=== PATIENT | male | born 1935 | race Caucasian/White ===

== ENCOUNTER 2020-04-19 12:32 | Emergency (ER) | payer MEDICARE, BC ==
[2020-04-19 12:38] VITALS: TEMP 98.2
--- NOTE | 2020-04-19 13:05 | ED ---
General Adult HPI - General Chief complaint: Nausea/Vomiting/Diarrhea Stated complaint: Exposure to Covid Time Seen by Provider: 04/19/20 12:46 Source: patient, RN notes reviewed, old records reviewed Mode of arrival: ambulatory Limitations: no limitations - History of Present Illness Initial comments: 84-year-old male patient presents to chief complaint of request of the tests. Patient reports that he was at a restaurant about a week ago and then urine the paper that there were coronavirus exposures there. Patient reports that since and has been having some generalized myalgias, diarrhea. Denies any chest pain shortness of breath or any abdominal pain. Patient reports that his joints are achy and he is having some left shoulder aching right now. Denies anterior chest pain or any other complaints. Systemic: Pt denies fatigue, fever/chills, rash. Pt denies weakness, night sweats, weight loss. Neuro: Pt denies headache, visual disturbances, syncope or pre-syncope. HEENT: Pt denies ocular discharge or irritation, otalgia, rhinorrhea, pharyngitis or notable lymphadenopathy. Cardiopulmonary: Pt denies chest pain, SOB, heart palpitations, dyspnea on exertion. Abdominal/GI: Pt denies abdominal pain, vomiting. : Pt denies dysuria, burning w/ urination, frequency/urgency. Denies new onset urinary or bowel incontinence. MSK: Pt denies loss of strength or function in extremities. Neuro: Pt denies new onset weakness, paresthesias. - Related Data Home Medications Medication Instructions Recorded Confirmed Clarithromycin [Biaxin] 500 mg PO Q12HR 02/13/14 02/13/14 methylPREDNISolone Dose Pack 4 mg PO DIRECTED 02/13/14 02/13/14 [Medrol Dose Pack] Previous Rx's Medication Instructions Recorded Famotidine [Pepcid] 20 mg PO BID #20 tablet 02/13/14 Levofloxacin [Levaquin] 500 mg PO DAILY 10 Days tab 02/13/14 Loratadine [Claritin] 10 mg PO DAILY 20 Days tab 02/13/14 Allergies Allergy/AdvReac Type Severity Reaction Status Date / Time No Known Allergies Allergy Verified 04/19/20 12:38 Review of Systems ROS Statement: Those systems with pertinent positive or pertinent negative responses have been documented in the HPI. ROS Other: All systems not noted in ROS Statement are negative. Past Medical History Past Medical History: No Reported History History of Any Multi-Drug Resistant Organisms: None Reported Additional Past Surgical History / Comment(s): eye surgery Past Psychological History: No Psychological Hx Reported Smoking Status: Never smoker Past Alcohol Use History: None Reported Past Drug Use History: None Reported General Exam - General Exam Comments Initial Comments: Constitutional: NAD, AOX3, Pt has pleasant affect. HEENT: NC/AT, trachea midline, neck supple, no lymphadenopathy. External ears appear normal, without discharge. Mucous membranes moist. Eyes PERRLA, EOM intact. There is no scleral icterus. No pallor noted. Cardiopulmonary: RRR, no murmurs, rubs or gallops, no JVD noted. Lungs CTAB in anterior and posterior garner. No peripheral edema. Abdominal exam: Abdomen soft and non-distended. Abdomen non-tender to palpation in all 4 quadrants. Bowel sounds active in LLQ. No hepatosplenomegaly. No ecchymosis Neuro: CN II-XII grossly intact. No nuchal rigidity. MSK: Full active ROM in upper and lower extremities, 5/5 stregnth. Limitations: no limitations Course Vital Signs 04/19/20 12:34 Temperature 98.2 F Pulse Rate 95 Respiratory 18 Rate Blood Pressure 186/95 O2 Sat by Pulse 99 Oximetry Medical Decision Making - Medical Decision Making 84-year-old male patient presented to ED for evaluation of possible cold exposure and symptoms. Patient vital signs display mild hypertension. Patient advised to have recheck by primary care provider. Physical exam did not display acute pathology. I did recommend that we do further workup more than just the Covid test which patient is declining. I recommended blood work and urine imaging which he declines. I also discussed that sometimes when someone has left shoulder pain we make sure there is no issues going on to the heart and recommended an EKG this he is also declining. He states he only wants the Covid test and then he wants to leave. Patient will be discharged to follow-up with his primary care provider and return here if any worsening symptoms. Case discussed with Dr. Calle. Disposition Clinical Impression: Myalgia, Diarrhea Narrative: Possible exposure to COVID-19 Disposition: HOME SELF-CARE Condition: Stable Instructions (If sedation given, give patient instructions): Musculoskeletal Pain (ED), Acute Diarrhea (ED) Additional Instructions: Have close outpatient follow-up with primary care provider tomorrow. Have blood pressure recheck by PCP. You will be contacted with the results and 1-3 days roughly. Self quarantine until results. Return to ER if any worsening symptoms. Is patient prescribed a controlled substance at d/c from ED?: No Referrals: None,Stated [Primary Care Provider] - 1-2 days Maulik Louis [STAFF PHYSICIAN] - 1-2 days
[2020-04-19 13:27] VITALS: BP 154/76; PULSE 69; RESP 16
== END 2020-04-19 13:20 | disposition home or self-care (01) ==
LOC: EC 12:32
DX: R19.7 Diarrhea, unspecified (principal); M79.10 Myalgia, unspecified site; I10 Essential (primary) hypertension; Z79.899 Other long term (current) drug therapy; Z20.828 Contact with and (suspected) exposure to other viral communicable diseases
CPT/HCPCS: 99284; U0003

== ENCOUNTER 2020-10-09 02:40 | Observation (INO) | payer MEDICARE, BC ==
[2020-10-09] MEDS ORDERED: SODIUM CHLORIDE 0.9% 1,000 ML IV STA (03:04)
--- NOTE | 2020-10-09 03:05 | ED ---
Abdominal Pain HPI - General Chief Complaint: Abdominal Pain Stated Complaint: Abd Pain Time Seen by Provider: 10/09/20 02:44 Source: patient, RN notes reviewed, old records reviewed Mode of arrival: ambulatory Limitations: no limitations - History of Present Illness Initial Comments: This is an 84-year-old male DF for evaluation. Patient is no surgical history and follow primary care doctor. Patient coming in for stomach pain epigastric pain with nausea. No vomiting no fevers. Again no history of abdominal surgery. Symptoms of been going on for about a day MD Complaint: abdominal pain -: hour(s) Location: epigastric Radiation: epigastric Migration to: epigastric Severity: moderate Severity scale (1-10): 7 Quality: stabbing, aching Consistency: constant Improves With: nothing Worsens With: nothing Associated Symptoms: denies other symptoms - Related Data Home Medications Medication Instructions Recorded Confirmed Clarithromycin [Biaxin] 500 mg PO Q12HR 02/13/14 02/13/14 methylPREDNISolone Dose Pack 4 mg PO DIRECTED 02/13/14 02/13/14 [Medrol Dose Pack] Previous Rx's Medication Instructions Recorded Famotidine [Pepcid] 20 mg PO BID #20 tablet 02/13/14 Levofloxacin [Levaquin] 500 mg PO DAILY 10 Days tab 02/13/14 Loratadine [Claritin] 10 mg PO DAILY 20 Days tab 02/13/14 Allergies Allergy/AdvReac Type Severity Reaction Status Date / Time No Known Allergies Allergy Verified 10/09/20 02:46 Review of Systems ROS Statement: Those systems with pertinent positive or pertinent negative responses have been documented in the HPI. ROS Other: All systems not noted in ROS Statement are negative. Past Medical History Past Medical History: No Reported History History of Any Multi-Drug Resistant Organisms: None Reported Additional Past Surgical History / Comment(s): eye surgery Past Psychological History: No Psychological Hx Reported Smoking Status: Never smoker Past Alcohol Use History: None Reported Past Drug Use History: None Reported General Exam Limitations: no limitations General appearance: alert, in no apparent distress, anxious Head exam: Present: atraumatic, normocephalic, normal inspection Eye exam: Present: normal appearance, PERRL, EOMI. Absent: scleral icterus, conjunctival injection, periorbital swelling ENT exam: Present: normal exam, mucous membranes moist Neck exam: Present: normal inspection. Absent: tenderness, meningismus, lymphadenopathy Respiratory exam: Present: normal lung sounds bilaterally. Absent: respiratory distress, wheezes, rales, rhonchi, stridor Cardiovascular Exam: Present: regular rate, normal rhythm, normal heart sounds. Absent: systolic murmur, diastolic murmur, rubs, gallop, clicks GI/Abdominal exam: Present: soft, normal bowel sounds. Absent: distended, tenderness, guarding, rebound, rigid Extremities exam: Present: normal inspection, full ROM, normal capillary refill. Absent: tenderness, pedal edema, joint swelling, calf tenderness Back exam: Present: normal inspection Neurological exam: Present: alert, oriented X3, CN II-XII intact Psychiatric exam: Present: normal affect, normal mood Skin exam: Present: warm, dry, intact, normal color. Absent: rash Course Vital Signs 10/09/20 10/09/20 10/09/20 02:43 05:00 06:00 Temperature 97.5 F L 97.6 F Pulse Rate 68 77 84 Respiratory 18 18 18 Rate Blood Pressure 221/81 167/87 154/84 O2 Sat by Pulse 100 97 97 Oximetry - Reevaluation(s) Reevaluation #1: 10/09/20 05:24 Medical record is reviewed Reevaluation #2: 10/09/20 06:38 Patient explained results here in the ER, need for ultrasound to rule out gallbladder disease. Patient at this time is unsure if he would like surgery Medical Decision Making - Lab Data Result diagrams: 10/09/20 03:16 10/09/20 03:16 Lab Results 10/09/20 10/09/20 10/09/20 Range/Units 03:16 03:16 03:16 WBC 11.0 H (3.8-10.6) k/uL RBC 4.93 (4.30-5.90) m/uL Hgb 13.5 (13.0-17.5) gm/dL Hct 40.9 (39.0-53.0) % MCV 83.0 (80.0-100.0) fL MCH 27.4 (25.0-35.0) pg MCHC 33.0 (31.0-37.0) g/dL RDW 14.3 (11.5-15.5) % Plt Count 287 (150-450) k/uL MPV 6.4 Neutrophils % 81 % Lymphocytes % 7 % Monocytes % 7 % Eosinophils % 4 % Basophils % 0 % Neutrophils # 8.8 H (1.3-7.7) k/uL Lymphocytes # 0.8 L (1.0-4.8) k/uL Monocytes # 0.7 (0-1.0) k/uL Eosinophils # 0.5 (0-0.7) k/uL Basophils # 0.0 (0-0.2) k/uL Sodium 137 (137-145) mmol/L Potassium 4.7 (3.5-5.1) mmol/L Chloride 103 (98-107) mmol/L Carbon Dioxide 25 (22-30) mmol/L Anion Gap 9 mmol/L BUN 28 H (9-20) mg/dL Creatinine 1.55 H (0.66-1.25) mg/dL Est GFR (CKD-EPI)AfAm 48 (>60 ml/min/1.73 sqM) Est GFR (CKD-EPI)NonAf 41 (>60 ml/min/1.73 sqM) Glucose 139 H (74-99) mg/dL Plasma Lactic Acid Daniel 1.3 (0.7-2.0) mmol/L Calcium 9.2 (8.4-10.2) mg/dL Total Bilirubin 0.5 (0.2-1.3) mg/dL AST 24 (17-59) U/L ALT 19 (4-49) U/L Alkaline Phosphatase 80 (38-126) U/L Troponin I (0.000-0.034) ng/mL Total Protein 7.6 (6.3-8.2) g/dL Albumin 4.2 (3.5-5.0) g/dL Amylase 93 (30-110) U/L Lipase 668 H (23-300) U/L Urine Color Urine Appearance (Clear) Urine pH (5.0-8.0) Ur Specific [place] (1.001-1.035) Urine Protein (Negative) Urine Glucose (UA) (Negative) Urine Ketones (Negative) Urine Blood (Negative) Urine Nitrite (Negative) Urine Bilirubin (Negative) Urine Urobilinogen (<2.0) mg/dL Ur Leukocyte Esterase (Negative) Urine RBC (0-5) /hpf Urine WBC (0-5) /hpf Urine Bacteria (None) /hpf Urine Mucus (None) /hpf 10/09/20 10/09/20 Range/Units 03:16 04:23 WBC (3.8-10.6) k/uL RBC (4.30-5.90) m/uL Hgb (13.0-17.5) gm/dL Hct (39.0-53.0) % MCV (80.0-100.0) fL MCH (25.0-35.0) pg MCHC (31.0-37.0) g/dL RDW (11.5-15.5) % Plt Count (150-450) k/uL MPV Neutrophils % % Lymphocytes % % Monocytes % % Eosinophils % % Basophils % % Neutrophils # (1.3-7.7) k/uL Lymphocytes # (1.0-4.8) k/uL Monocytes # (0-1.0) k/uL Eosinophils # (0-0.7) k/uL Basophils # (0-0.2) k/uL Sodium (137-145) mmol/L Potassium (3.5-5.1) mmol/L Chloride (98-107) mmol/L Carbon Dioxide (22-30) mmol/L Anion Gap mmol/L BUN (9-20) mg/dL Creatinine (0.66-1.25) mg/dL Est GFR (CKD-EPI)AfAm (>60 ml/min/1.73 sqM) Est GFR (CKD-EPI)NonAf (>60 ml/min/1.73 sqM) Glucose (74-99) mg/dL Plasma Lactic Acid Daniel (0.7-2.0) mmol/L Calcium (8.4-10.2) mg/dL Total Bilirubin (0.2-1.3) mg/dL AST (17-59) U/L ALT (4-49) U/L Alkaline Phosphatase (38-126) U/L Troponin I <0.012 (0.000-0.034) ng/mL Total Protein (6.3-8.2) g/dL Albumin (3.5-5.0) g/dL Amylase (30-110) U/L Lipase (23-300) U/L Urine Color Light Yellow Urine Appearance Clear (Clear) Urine pH 6.5 (5.0-8.0) Ur Specific [place] 1.014 (1.001-1.035) Urine Protein 1+ H (Negative) Urine Glucose (UA) Negative (Negative) Urine Ketones Negative (Negative) Urine Blood Small H (Negative) Urine Nitrite Negative (Negative) Urine Bilirubin Negative (Negative) Urine Urobilinogen <2.0 (<2.0) mg/dL Ur Leukocyte Esterase Moderate H (Negative) Urine RBC 5 (0-5) /hpf Urine WBC 30 H (0-5) /hpf Urine Bacteria Many H (None) /hpf Urine Mucus Rare H (None) /hpf - Radiology Data Radiology results: report reviewed (CT abdomen and pelvis positive for likely cholecystitis), image reviewed Disposition Clinical Impression: Abdominal pain, Pancreatitis, UTI (urinary tract infection) Condition: Good Is patient prescribed a controlled substance at d/c from ED?: No Referrals: None,Stated [Primary Care Provider] - 1-2 days
[2020-10-09 03:26] LABS: Basophils % (A) 0 %; Eosinophils # (A) 0.5 k/uL (0-0.7); Eosinophils % (A) 4 %; HCT 40.9 % (39.0-53.0); HGB 13.5 gm/dL (13.0-17.5); Lymphocytes # (A) 0.8 k/uL (1.0-4.8); Lymphocytes % (A) 7 %; MCH 27.4 pg (25.0-35.0); Mean Platelet Volume 6.4; Monocytes # (A) 0.7 k/uL (0-1.0); Monocytes % (A) 7 %; Neutrophils # (A) 8.8 k/uL (1.3-7.7); Neutrophils % (A) 81 %; Platelet Count 287 k/uL (150-450); RBC 4.93 m/uL (4.30-5.90); RDW 14.3 % (11.5-15.5)
[2020-10-09 03:36] LABS: Albumin 4.2 g/dL (3.5-5.0); Calcium 9.2 mg/dL (8.4-10.2); Potassium 4.7 mmol/L (3.5-5.1); Total Bilirubin 0.5 mg/dL (0.2-1.3); Total Protein 7.6 g/dL (6.3-8.2)
--- NOTE | 2020-10-09 04:33 | CT ---
EXAM: CT Abdomen and Pelvis Without Intravenous Contrast CLINICAL HISTORY: ITS.REASON CT Reason: abdominal pain TECHNIQUE: Axial computed tomography images of the abdomen and pelvis without intravenous contrast. CTDI is 12.67 mGy and DLP is 821.10 mGy-cm. This CT exam was performed using one or more of the following dose reduction techniques: automated exposure control, adjustment of the mA and/or kV according to patient size, and/or use of iterative reconstruction technique. COMPARISON: No relevant prior studies available. FINDINGS: Lung bases: No mass. No consolidation. ABDOMEN: Liver: Unremarkable. Gallbladder and bile ducts: Distended gallbladder with wall thickening and pericholecystic fluid. Gallbladder contained sludge. Pancreas: No ductal dilation. Spleen: Unremarkable. Adrenals: Unremarkable. Kidneys and ureters: No obstructing stones. No hydronephrosis. Stomach and bowel: No bowel obstruction. No bowel wall thickening. Colonic diverticulosis. PELVIS: Appendix: No evidence of appendicitis. Bladder: No stones. Severely thickened bladder wall. Reproductive: Severely enlarged prostate. ABDOMEN and PELVIS: Intraperitoneal space: Unremarkable. Bones/joints: No acute fractures. Soft tissues: Unremarkable. Vasculature: No abdominal aortic aneurysm. Lymph nodes: No enlarged lymph nodes. IMPRESSION: 1. Findings concerning for acute cholecystitis. Recommend right upper quadrant ultrasound. 2. Colonic diverticulosis. 3. Severely thickened bladder wall and severely enlarged prostate gland.
[2020-10-09] MEDS ORDERED: AMPICILLIN-SULBACTAM 3 GM in SODIUM CHLORIDE 0.9% 100 ML IVPB STA (04:39)
[2020-10-09 04:40] LABS: Appearance,Urine Clear (Clear); Bacteria,Urine Many /hpf; Bilirubin,Urine Negative (Negative); Blood,Urine Small (Negative); Color,Urine Light Yellow; Glucose,Urine (UA) Negative (Negative); Ketones,Urine Negative (Negative); Leukocyte Esterase,Urine Moderate (Negative); Mucus,Urine Rare /hpf; Nitrite,Urine Negative (Negative); PH, Urine 6.5 (5.0-8.0); Protein,Urine 1+ (Negative); RBC,Urine 5 /hpf (0-5); Specific Gravity,Urine 1.014 (1.001-1.035); Urobilinogen,Urine <2.0 mg/dL (<2.0); WBC,Urine 30 /hpf (0-5)
[2020-10-09] MEDS ORDERED: HYDROmorphone 1 MG/ML 1 ML SYRINGE IVP STA (05:23)
[2020-10-09] MEDS ORDERED: ONDANSETRON 4 MG/2 ML VIAL IVP STA (06:00)
[2020-10-09] MEDS ORDERED: ONDANSETRON 4 MG/2 ML VIAL IVP PRN (06:40)
[2020-10-09] MEDS ORDERED: HYDROmorphone 1 MG/ML 1 ML SYRINGE IVP PRN ×2 (06:40)
[2020-10-09] MEDS ORDERED: SODIUM CHLORIDE 0.9% 1,000 ML IV SCH (07:30)
--- NOTE | 2020-10-09 08:28 | US ---
EXAMINATION TYPE: US gallbladder DATE OF EXAM: 10/09/2020 COMPARISON: CT earlier today CLINICAL HISTORY: pain. epigastric pain EXAM MEASUREMENTS: Liver Length: 15.4 cm Gallbladder Wall: 0.7 cm CBD: 0.6 cm Right Kidney: 10.3 x 5.5 x 5.6 cm Pancreas: limited visualization due to midline bowel gas Liver: Increased attenuation Gallbladder: many shadowing stones, thickened wall, small amount of pericholecystic fluid. Evidence for sonographic Fowler's sign: patient denies any pain during exam. CBD: wnl Right Kidney: No hydronephrosis or masses seen Suboptimal evaluation of pancreas on the initial images, no acute findings noted on recent CT. Visual ized liver is heterogeneously hyperechoic consistent with mild diffuse fatty infiltration. Gallbladde r shows intraluminal mobile shadowing gallstones with distended margins correlating with CT. Gallblad ever wall shows mild to moderate wall thickening up to 7 mm on ultrasound more prominent than recent C T. No adjacent ascites. Sonographic Fowler's sign negative. Right kidney shows no hydronephrosis. IMPRESSION: Confirmation of multiple mobile small shadowing stones and gallbladder wall distention. M ild to moderate wall thickening on ultrasound noted. Findings increased suspicion for acute cholecyst itis though note is made of no surrounding fluid or fat stranding on ultrasound or CT and negative so nographic Fowler's sign.
[2020-10-09 08:29] VITALS: BP 164/67; RESP 18; TEMP 97.7
[2020-10-09] MEDS ORDERED: HEPARIN SODIUM,PORCINE 5,000 UNIT/ML 1 ML VIAL SQ SCH (09:00)
[2020-10-09] MEDS ORDERED: PANTOPRAZOLE 40 MG/10 ML VIAL IV SCH (09:00)
[2020-10-09 09:28] VITALS: PULSE 50
--- NOTE | 2020-10-09 09:36 | P.HPIM ---
History of Present Illness H&P Date: 10/09/20 Chief Complaint: Abdominal pain This is a 84-year-old male with no significant past medical history who presented to the emergency room with abdominal pain. Patient said that his pain started couple of days ago and is being getting worse. He describes his pain as dull and mostly in the center of his abdomen and epigastric area. He rated the pain as 9 out of 10 in severity at times. There is no exacerbating or alleviating factors. Pain is unrelated to food. There was no radiation. This was associated with some nausea but no vomiting. Patient reports having normal bowel movements otherwise. He denies any prior abdominal surgeries. No fevers or chills. Patient denies any past medical history. He does not take any prescription medications at home. He denies alcohol use. Review of Systems Review of system: 14 points review of systems were obtained and were negative except to what were mentioned in the HPI. Past Medical History Past Medical History: No Reported History History of Any Multi-Drug Resistant Organisms: None Reported Additional Past Surgical History / Comment(s): eye surgery Past Psychological History: No Psychological Hx Reported Smoking Status: Never smoker Past Alcohol Use History: None Reported Past Drug Use History: None Reported Medications and Allergies Home Medications Medication Instructions Recorded Confirmed Type Ascorbic Acid [Vitamin C] 500 mg PO DAILY 10/09/20 10/09/20 History Cholecalciferol [Vitamin D3 (25 25 mcg PO DAILY 10/09/20 10/09/20 History Mcg = 1000 Iu)] Allergies Allergy/AdvReac Type Severity Reaction Status Date / Time No Known Allergies Allergy Verified 10/09/20 07:14 Physical Exam Vitals: Vital Signs Temp Pulse Pulse Pulse Resp BP BP 10/09/20 08:28 97.7 F 53 L 18 164/67 10/09/20 07:01 97.5 F L 50 L 16 158/74 10/09/20 07:00 81 22 155/85 10/09/20 06:00 84 18 154/84 10/09/20 05:00 97.6 F 77 18 167/87 10/09/20 02:43 97.5 F L 68 18 221/81 Pulse Ox 10/09/20 08:28 97 10/09/20 07:01 97 10/09/20 07:00 97 10/09/20 06:00 97 10/09/20 05:00 97 10/09/20 02:43 100 Intake and Output 10/08/20 10/09/20 10/09/20 22:59 06:59 14:59 Other: Voiding Method Toilet Weight 97.522 kg 97.522 kg General: The patient is awake and alert, in no distress Eye: there is normal conjunctiva bilaterally. Neck: The neck is supple, there is no JVD. Cardiovascular: Normal S1-S2, no S3-S4, no murmurs. Respiratory: Lungs clear to auscultation bilaterally Gastrointestinal: Abdomen is soft, there is mild tenderness to palpation in the periumbilical area. Negative Fowler sign Musculoskeletal: There is no pedal edema. Neurological:. Speech is normal. Skin: Skin is warm and dry Results CBC & Chem 7: 10/09/20 03:16 10/09/20 03:16 Labs: Abnormal Lab Results - Last 24 Hours (Table) 10/09/20 10/09/20 10/09/20 Range/Units 03:16 03:16 04:23 WBC 11.0 H (3.8-10.6) k/uL Neutrophils # 8.8 H (1.3-7.7) k/uL Lymphocytes # 0.8 L (1.0-4.8) k/uL BUN 28 H (9-20) mg/dL Creatinine 1.55 H (0.66-1.25) mg/dL Glucose 139 H (74-99) mg/dL Lipase 668 H (23-300) U/L Urine Protein 1+ H (Negative) Urine Blood Small H (Negative) Ur Leukocyte Esterase Moderate H (Negative) Urine WBC 30 H (0-5) /hpf Urine Bacteria Many H (None) /hpf Urine Mucus Rare H (None) /hpf Microbiology - Last 24 Hours (Table) 10/09/20 04:23 Urine Culture - Preliminary Urine,Voided Thrombosis Risk Factor Assmnt - Choose All That Apply Any of the Below Risk Factors Present?: Yes Each Factor Represents 1 point: Obesity (BMI >25) Other Risk Factors: Yes Each Risk Factor Represents 3 Points: Age 75 years or older Other congenital or acquired thrombophilia - If yes, enter type in comment: No Thrombosis Risk Factor Assessment Total Risk Factor Score: 4 Thrombosis Risk Factor Assessment Level: Moderate Risk Assessment and Plan Assessment: This is a 84-year-old male with past medical history noted below who presented to the emergency room with worsening abdominal pain. Patient was evaluated in the ER and admitted to the hospital for further management of his medical problems noted below. 1. Suspected cholecystitis, computed tomography scan of the abdomen shows finding concerning for suspected acute cholecystitis. Ultrasound confirmed cholelithiasis with gallbladder wall distention and thickening. Gen. surgery consulted for further evaluation. Continue nothing by mouth for now. Antibiotic coverage with Unasyn. 2. Enlarged prostate, may represent BPH. I would clarify with patient any symptoms he has. Will need PSA as an outpatient 3. GI and DVT prophylaxis with IV Protonix and subcu heparin Today, I reviewed his medication list and lab work results. Continue current regimen. IV fluid hydration with normal saline at 75 mL per hour. Repeat lab work in the morning. Appreciate general surgery recommendations.
--- NOTE | 2020-10-09 12:10 | P.GSCN ---
History of Present Illness Consult date: 10/09/20 History of present illness: Patient presented with a one-day history of midepigastric abdominal pain. He stated this began out of the blue. He's never had pain like this before in the past. He denies any past surgical history. He denies any nausea vomiting denies any fevers or chills. He denies any change in his bowel movements. Past Medical History Past Medical History: No Reported History History of Any Multi-Drug Resistant Organisms: None Reported Additional Past Surgical History / Comment(s): eye surgery Past Psychological History: No Psychological Hx Reported Smoking Status: Never smoker Past Alcohol Use History: None Reported Past Drug Use History: None Reported Medications and Allergies Home Medications Medication Instructions Recorded Confirmed Type Ascorbic Acid [Vitamin C] 500 mg PO DAILY 10/09/20 10/09/20 History Cholecalciferol [Vitamin D3 (25 25 mcg PO DAILY 10/09/20 10/09/20 History Mcg = 1000 Iu)] Allergies Allergy/AdvReac Type Severity Reaction Status Date / Time No Known Allergies Allergy Verified 10/09/20 07:14 Surgical - Exam Osteopathic Statement: *. No significant issues noted on an osteopathic struc tural exam other than those noted in the History and Physical/Consult. Vital Signs Temp Pulse Resp BP Pulse Ox 97.5 F L 68 18 221/81 100 10/09/20 02:43 10/09/20 02:43 10/09/20 02:43 10/09/20 02:43 10/09/20 02:43 - Respiratory normal expansion, normal respiratory effort - Cardiovascular Rhythm: regular - Abdomen Abdomen: soft, non tender Results - Labs 10/09/20 03:16 10/09/20 03:16 Abnormal Lab Results - Last 24 Hours (Table) 10/09/20 10/09/20 10/09/20 Range/Units 03:16 03:16 04:23 WBC 11.0 H (3.8-10.6) k/uL Neutrophils # 8.8 H (1.3-7.7) k/uL Lymphocytes # 0.8 L (1.0-4.8) k/uL BUN 28 H (9-20) mg/dL Creatinine 1.55 H (0.66-1.25) mg/dL Glucose 139 H (74-99) mg/dL Lipase 668 H (23-300) U/L Urine Protein 1+ H (Negative) Urine Blood Small H (Negative) Ur Leukocyte Esterase Moderate H (Negative) Urine WBC 30 H (0-5) /hpf Urine Bacteria Many H (None) /hpf Urine Mucus Rare H (None) /hpf Microbiology - Last 24 Hours (Table) 10/09/20 04:23 Urine Culture - Preliminary Urine,Voided Diabetes panel 10/09/20 Range/Units 03:16 Sodium 137 (137-145) mmol/L Potassium 4.7 (3.5-5.1) mmol/L Chloride 103 (98-107) mmol/L Carbon Dioxide 25 (22-30) mmol/L BUN 28 H (9-20) mg/dL Creatinine 1.55 H (0.66-1.25) mg/dL Glucose 139 H (74-99) mg/dL Calcium 9.2 (8.4-10.2) mg/dL AST 24 (17-59) U/L ALT 19 (4-49) U/L Alkaline Phosphatase 80 (38-126) U/L Total Protein 7.6 (6.3-8.2) g/dL Albumin 4.2 (3.5-5.0) g/dL Calcium panel 10/09/20 Range/Units 03:16 Calcium 9.2 (8.4-10.2) mg/dL Albumin 4.2 (3.5-5.0) g/dL Pituitary panel 10/09/20 Range/Units 03:16 Sodium 137 (137-145) mmol/L Potassium 4.7 (3.5-5.1) mmol/L Chloride 103 (98-107) mmol/L Carbon Dioxide 25 (22-30) mmol/L BUN 28 H (9-20) mg/dL Creatinine 1.55 H (0.66-1.25) mg/dL Glucose 139 H (74-99) mg/dL Calcium 9.2 (8.4-10.2) mg/dL Adrenal panel 10/09/20 Range/Units 03:16 Sodium 137 (137-145) mmol/L Potassium 4.7 (3.5-5.1) mmol/L Chloride 103 (98-107) mmol/L Carbon Dioxide 25 (22-30) mmol/L BUN 28 H (9-20) mg/dL Creatinine 1.55 H (0.66-1.25) mg/dL Glucose 139 H (74-99) mg/dL Calcium 9.2 (8.4-10.2) mg/dL Total Bilirubin 0.5 (0.2-1.3) mg/dL AST 24 (17-59) U/L ALT 19 (4-49) U/L Alkaline Phosphatase 80 (38-126) U/L Total Protein 7.6 (6.3-8.2) g/dL Albumin 4.2 (3.5-5.0) g/dL Assessment and Plan Assessment: Mild pancreatitis versus symptomatically cholelithiasis. Plan: Patient's pain is completely resolved today. He states that he does not want surgery. I discussed with him that recurrent pancreatitis from gallstones can be more serious including risks of admission to ICU and even . he stated he understood this and stated he still did not want any surgery at this time. He can start a clear liquid diet from a surgical standpoint and follow-up as needed as an outpatient.
[2020-10-09] MEDS ORDERED: AMPICILLIN-SULBACTAM 3 GM in SODIUM CHLORIDE 0.9% 100 ML IVPB SCH (13:00)
--- NOTE | 2020-10-09 14:04 | P.DS ---
Providers Date of admission: 10/09/20 06:41 Expected date of discharge: 10/09/20 Attending physician: Dl Barbour MD Consults: 10/09/20 06:42 Consult Physician Routine Consulting Provider: Vikram Lee Consult Reason/Comments: blanca Do you want consulting provider notified?: Yes Primary care physician: Stated None Hospital Course: This is a 84-year-old male with past medical history noted below who presented to the emergency room with worsening abdominal pain. Patient was evaluated in the ER and admitted to the hospital for further management of his medical problems noted below. 1. Suspected cholecystitis, computed tomography scan of the abdomen shows finding concerning for suspected acute cholecystitis. Ultrasound confirmed cholelithiasis with gallbladder wall distention and thickening. Gen. surgery consulted for further evaluation. Patient was adamant about refusing any surgical intervention. He verbalizes understanding of the risks. He was cleared by general surgery to be discharged. He was pain-free throughout his hospital stay. He was able to tolerate regular diet with no difficulty. He will follow-up with general surgery in the office as directed. 2. Enlarged prostate, may represent BPH. Will need PSA as an outpatient Patient Condition at Discharge: Stable Plan - Discharge Summary Discharge Rx Participant: No New Discharge Prescriptions: Continue Cholecalciferol [Vitamin D3 (25 Mcg = 1000 Iu)] 25 mcg PO DAILY Ascorbic Acid [Vitamin C] 500 mg PO DAILY Discharge Medication List Ascorbic Acid [Vitamin C] 500 mg PO DAILY 10/09/20 [History] Cholecalciferol [Vitamin D3 (25 Mcg = 1000 Iu)] 25 mcg PO DAILY 10/09/20 [History] Follow up Appointment(s)/Referral(s): Vikram Lee, [Doctor of Osteopathic Medicine] - 1 Week None,Stated [Primary Care Provider] - 1-2 days (Please establish yourself with a pcp.) Patient Instructions/Handouts: Cholecystitis (ED), Pancreatitis (DC) Discharge Disposition: HOME SELF-CARE
== END 2020-10-09 14:48 | disposition home or self-care (01) ==
LOC: EC 02:40 → 6NMEDSUR 06:41
PROVIDERS: ADMIT Internal Medicine; ATTEND Internal Medicine
DX: R10.13 Epigastric pain (principal); K80.20 Calculus of gallbladder without cholecystitis without obstruction; N39.0 Urinary tract infection, site not specified; K57.30 Diverticulosis of large intestine without perforation or abscess without bleeding; N40.0 Benign prostatic hyperplasia without lower urinary tract symptoms; E66.9 Obesity, unspecified; Z68.27 Body mass index [BMI] 27.0-27.9, adult; Z20.828 Contact with and (suspected) exposure to other viral communicable diseases
CPT/HCPCS: 96372; 96375 ×2; 96361; 96365; 99285; 36415; 80053; 82150; 83605; 83690; 84484; 85025; 81001; 87086; 87077; 87186; 87635; 76705; 74176; G0378; J1644; J2405; J1170; J0295; C9113

== ENCOUNTER 2022-04-24 13:39 | Emergency (ER) | payer MEDICARE, BC ==
[2022-04-24 13:54] VITALS: TEMP 99.1
--- NOTE | 2022-04-24 14:15 | ED ---
General Adult HPI - General Chief complaint: Weakness Stated complaint: AFIB Time Seen by Provider: 04/24/22 13:50 Source: patient, EMS, RN notes reviewed, old records reviewed Mode of arrival: EMS Limitations: no limitations - History of Present Illness Initial comments: This is an 86-year-old male who presents emergency Department complaining that about an hour and a half prior to arrival he started feeling weak. Patient states she felt weak all over and at this point time he decided to call the paramedics. Patient denies any chest pain or palpitations. Patient denies any fever chills or cough recently. Patient denies any abdominal pain patient denies nausea vomiting diarrhea. Patient denies any headache patient denies numbness weakness. Patient's only complaint is overall he feels extremely weak. According to EMS they saw the heart rate as high as 130. They thought it might be atrial fibrillation patient has no history of such - Related Data Home Medications Medication Instructions Recorded Confirmed Ascorbic Acid [Vitamin C] 500 mg PO DAILY 10/09/20 10/09/20 Cholecalciferol [Vitamin D3 (25 25 mcg PO DAILY 10/09/20 10/09/20 Mcg = 1000 Iu)] Previous Rx's Medication Instructions Recorded Sulfamethox-Tmp 800-160Mg [Bactrim 1 each PO Q12HR #20 tab 04/24/22 DS 800-160 mg] Allergies Allergy/AdvReac Type Severity Reaction Status Date / Time No Known Allergies Allergy Verified 10/09/20 07:14 Review of Systems ROS Statement: Those systems with pertinent positive or pertinent negative responses have been documented in the HPI. ROS Other: All systems not noted in ROS Statement are negative. Past Medical History Past Medical History: No Reported History History of Any Multi-Drug Resistant Organisms: None Reported Additional Past Surgical History / Comment(s): eye surgery Past Psychological History: No Psychological Hx Reported Smoking Status: Never smoker Past Alcohol Use History: None Reported Past Drug Use History: None Reported General Exam - General Exam Comments Initial Comments: GENERAL: Patient is well-developed and well-nourished. Patient is nontoxic and well-hydrated and is in mild distress. ENT: Neck is soft and supple. No significant lymphadenopathy is noted. Oropharynx is clear. Moist mucous membranes. Neck has full range of motion without eliciting any pain. EYES: The sclera were anicteric and conjunctiva were pink and moist. Extraocular movements were intact and pupils were equal round and reactive to light. Eyelids were unremarkable. PULMONARY: Unlabored respirations. Good breath sounds bilaterally. No audible rales rhonchi or wheezing was noted. CARDIOVASCULAR: Patient is a regular rate and rhythm with occasional extrasystole ABDOMEN: Soft and nontender with normal bowel sounds. SKIN: Skin is clear with no lesions or rashes and otherwise unremarkable. NEUROLOGIC: Patient is alert and oriented x3. Cranial nerves II through XII are grossly intact. Motor and sensory are also intact. Normal speech, volume and content. Symmetrical smile. MUSCULOSKELETAL: Normal extremities with adequate strength and full range of motion. No lower extremity swelling or edema. No calf tenderness. LYMPHATICS: No significant lymphadenopathy is noted PSYCHIATRIC: Normal psychiatric evaluation. Limitations: no limitations Course Vital Signs 04/24/22 04/24/22 13:46 13:54 Temperature 99.1 F Pulse Rate 73 80 Respiratory 18 16 Rate Blood Pressure 158/73 O2 Sat by Pulse 98 95 Oximetry Medical Decision Making - Medical Decision Making EKG shows sinus rhythm with occasional PAC at 84 bpm NM interval 220 QRS is 119 QT interval 381 QTC is 423 per patient's EKG shows no ST segment elevation or depression. Patient received 2 g of Rocephin emergency department. I went back into the room I reevaluated the patient stated he felt back to his baseline and was comfortable going home on antibiotics. - Lab Data Result diagrams: 04/24/22 13:57 04/24/22 13:57 Lab Results 04/24/22 04/24/22 04/24/22 Range/Units 13:57 13:57 13:57 WBC 12.5 H (3.8-10.6) k/uL RBC 4.99 (4.30-5.90) m/uL Hgb 14.2 (13.0-17.5) gm/dL Hct 43.5 (39.0-53.0) % MCV 87.2 (80.0-100.0) fL MCH 28.6 (25.0-35.0) pg MCHC 32.7 (31.0-37.0) g/dL RDW 15.3 (11.5-15.5) % Plt Count 235 (150-450) k/uL MPV 6.9 Neutrophils % 90 % Lymphocytes % 2 % Monocytes % 6 % Eosinophils % 1 % Basophils % 0 % Neutrophils # 11.2 H (1.3-7.7) k/uL Lymphocytes # 0.3 L (1.0-4.8) k/uL Monocytes # 0.7 (0-1.0) k/uL Eosinophils # 0.1 (0-0.7) k/uL Basophils # 0.1 (0-0.2) k/uL PT 10.8 (9.0-12.0) sec INR 1.0 (<1.2) APTT 20.5 L (22.0-30.0) sec Sodium 138 (137-145) mmol/L Potassium 4.7 (3.5-5.1) mmol/L Chloride 106 (98-107) mmol/L Carbon Dioxide 21 L (22-30) mmol/L Anion Gap 11 mmol/L BUN 33 H (9-20) mg/dL Creatinine 1.63 H (0.66-1.25) mg/dL Est GFR (CKD-EPI)AfAm 44 (>60 ml/min/1.73 sqM) Est GFR (CKD-EPI)NonAf 38 (>60 ml/min/1.73 sqM) Glucose 150 H (74-99) mg/dL Plasma Lactic Acid Daniel (0.7-2.0) mmol/L Calcium 9.1 (8.4-10.2) mg/dL Magnesium 1.8 (1.6-2.3) mg/dL Total Bilirubin 0.6 (0.2-1.3) mg/dL AST 36 (17-59) U/L ALT 30 (4-49) U/L Alkaline Phosphatase 83 (38-126) U/L Troponin I (0.000-0.034) ng/mL Total Protein 6.7 (6.3-8.2) g/dL Albumin 4.0 (3.5-5.0) g/dL Urine Color Urine Appearance (Clear) Urine pH (5.0-8.0) Ur Specific [place] (1.001-1.035) Urine Protein (Negative) Urine Glucose (UA) (Negative) Urine Ketones (Negative) Urine Blood (Negative) Urine Nitrite (Negative) Urine Bilirubin (Negative) Urine Urobilinogen (<2.0) mg/dL Ur Leukocyte Esterase (Negative) Urine RBC (0-5) /hpf Urine WBC (0-5) /hpf Urine WBC Clumps (None) /hpf Urine Bacteria (None) /hpf Urine Mucus (None) /hpf Coronavirus (PCR) (Not Detectd) 04/24/22 04/24/22 04/24/22 Range/Units 13:57 13:57 14:36 WBC (3.8-10.6) k/uL RBC (4.30-5.90) m/uL Hgb (13.0-17.5) gm/dL Hct (39.0-53.0) % MCV (80.0-100.0) fL MCH (25.0-35.0) pg MCHC (31.0-37.0) g/dL RDW (11.5-15.5) % Plt Count (150-450) k/uL MPV Neutrophils % % Lymphocytes % % Monocytes % % Eosinophils % % Basophils % % Neutrophils # (1.3-7.7) k/uL Lymphocytes # (1.0-4.8) k/uL Monocytes # (0-1.0) k/uL Eosinophils # (0-0.7) k/uL Basophils # (0-0.2) k/uL PT (9.0-12.0) sec INR (<1.2) APTT (22.0-30.0) sec Sodium (137-145) mmol/L Potassium (3.5-5.1) mmol/L Chloride (98-107) mmol/L Carbon Dioxide (22-30) mmol/L Anion Gap mmol/L BUN (9-20) mg/dL Creatinine (0.66-1.25) mg/dL Est GFR (CKD-EPI)AfAm (>60 ml/min/1.73 sqM) Est GFR (CKD-EPI)NonAf (>60 ml/min/1.73 sqM) Glucose (74-99) mg/dL Plasma Lactic Acid Daniel 2.4 H* (0.7-2.0) mmol/L Calcium (8.4-10.2) mg/dL Magnesium (1.6-2.3) mg/dL Total Bilirubin (0.2-1.3) mg/dL AST (17-59) U/L ALT (4-49) U/L Alkaline Phosphatase (38-126) U/L Troponin I <0.012 (0.000-0.034) ng/mL Total Protein (6.3-8.2) g/dL Albumin (3.5-5.0) g/dL Urine Color Yellow Urine Appearance Cloudy (Clear) Urine pH 5.5 (5.0-8.0) Ur Specific [place] 1.014 (1.001-1.035) Urine Protein Trace H (Negative) Urine Glucose (UA) Negative (Negative) Urine Ketones Negative (Negative) Urine Blood Trace H (Negative) Urine Nitrite Positive (Negative) Urine Bilirubin Negative (Negative) Urine Urobilinogen <2.0 (<2.0) mg/dL Ur Leukocyte Esterase Large H (Negative) Urine RBC 10 H (0-5) /hpf Urine WBC >182 H (0-5) /hpf Urine WBC Clumps Moderate H (None) /hpf Urine Bacteria Occasional H (None) /hpf Urine Mucus Rare H (None) /hpf Coronavirus (PCR) (Not Detectd) 04/24/22 Range/Units 14:37 WBC (3.8-10.6) k/uL RBC (4.30-5.90) m/uL Hgb (13.0-17.5) gm/dL Hct (39.0-53.0) % MCV (80.0-100.0) fL MCH (25.0-35.0) pg MCHC (31.0-37.0) g/dL RDW (11.5-15.5) % Plt Count (150-450) k/uL MPV Neutrophils % % Lymphocytes % % Monocytes % % Eosinophils % % Basophils % % Neutrophils # (1.3-7.7) k/uL Lymphocytes # (1.0-4.8) k/uL Monocytes # (0-1.0) k/uL Eosinophils # (0-0.7) k/uL Basophils # (0-0.2) k/uL PT (9.0-12.0) sec INR (<1.2) APTT (22.0-30.0) sec Sodium (137-145) mmol/L Potassium (3.5-5.1) mmol/L Chloride (98-107) mmol/L Carbon Dioxide (22-30) mmol/L Anion Gap mmol/L BUN (9-20) mg/dL Creatinine (0.66-1.25) mg/dL Est GFR (CKD-EPI)AfAm (>60 ml/min/1.73 sqM) Est GFR (CKD-EPI)NonAf (>60 ml/min/1.73 sqM) Glucose (74-99) mg/dL Plasma Lactic Acid Daniel (0.7-2.0) mmol/L Calcium (8.4-10.2) mg/dL Magnesium (1.6-2.3) mg/dL Total Bilirubin (0.2-1.3) mg/dL AST (17-59) U/L ALT (4-49) U/L Alkaline Phosphatase (38-126) U/L Troponin I (0.000-0.034) ng/mL Total Protein (6.3-8.2) g/dL Albumin (3.5-5.0) g/dL Urine Color Urine Appearance (Clear) Urine pH (5.0-8.0) Ur Specific [place] (1.001-1.035) Urine Protein (Negative) Urine Glucose (UA) (Negative) Urine Ketones (Negative) Urine Blood (Negative) Urine Nitrite (Negative) Urine Bilirubin (Negative) Urine Urobilinogen (<2.0) mg/dL Ur Leukocyte Esterase (Negative) Urine RBC (0-5) /hpf Urine WBC (0-5) /hpf Urine WBC Clumps (None) /hpf Urine Bacteria (None) /hpf Urine Mucus (None) /hpf Coronavirus (PCR) Not Detected (Not Detectd) Disposition Clinical Impression: Urinary tract infection Disposition: HOME SELF-CARE Condition: Good Instructions (If sedation given, give patient instructions): Urinary Tract Infection in Men (ED) Prescriptions: Sulfamethox-Tmp 800-160Mg [Bactrim DS 800-160 mg] 1 each PO Q12HR #20 tab Is patient prescribed a controlled substance at d/c from ED?: No Referrals: None,Stated [Primary Care Provider] - 1-2 days Time of Disposition: 15:36
[2022-04-24 14:21] LABS: Basophils # (A) 0.1 k/uL (0-0.2); Basophils % (A) 0 %; Eosinophils # (A) 0.1 k/uL (0-0.7); Eosinophils % (A) 1 %; HCT 43.5 % (39.0-53.0); HGB 14.2 gm/dL (13.0-17.5); Lymphocytes # (A) 0.3 k/uL (1.0-4.8); Lymphocytes % (A) 2 %; MCH 28.6 pg (25.0-35.0); MCHC 32.7 g/dL (31.0-37.0); MCV 87.2 fL (80.0-100.0); Mean Platelet Volume 6.9; Monocytes # (A) 0.7 k/uL (0-1.0); Monocytes % (A) 6 %; Neutrophils # (A) 11.2 k/uL (1.3-7.7); Neutrophils % (A) 90 %; Platelet Count 235 k/uL (150-450); RBC 4.99 m/uL (4.30-5.90); RDW 15.3 % (11.5-15.5); WBC 12.5 k/uL (3.8-10.6)
--- NOTE | 2022-04-24 14:28 | XR ---
EXAMINATION TYPE: XR chest 2V DATE OF EXAM: 04/24/2022 2:18 PM COMPARISON: None TECHNIQUE: XR chest 2V Frontal and lateral views of the chest. CLINICAL INDICATION:Male, 86 years old with history of Weakness; FINDINGS: Lungs/Pleura: Low lung volumes are present. There is no evidence of pleural effusion, focal consolida tion, or pneumothorax. Pulmonary vascularity: Unremarkable. Heart/mediastinum: Cardiomediastinal silhouette is unremarkable. 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 IMPRESSION: Low lung volumes without evidence of acute cardiopulmonary process.
[2022-04-24 14:36] LABS: Calcium 9.1 mg/dL (8.4-10.2); Magnesium 1.8 mg/dL (1.6-2.3); Potassium 4.7 mmol/L (3.5-5.1); Prothrombin Time 10.8 sec (9.0-12.0); Total Bilirubin 0.6 mg/dL (0.2-1.3); Total Protein 6.7 g/dL (6.3-8.2)
[2022-04-24 14:52] LABS: Partial Thromboplastin Time 20.5 sec (22.0-30.0)
[2022-04-24 15:08] LABS: Appearance,Urine Cloudy (Clear); Bacteria,Urine Occasional /hpf; Bilirubin,Urine Negative (Negative); Blood,Urine Trace (Negative); Color,Urine Yellow; Glucose,Urine (UA) Negative (Negative); Ketones,Urine Negative (Negative); Leukocyte Esterase,Urine Large (Negative); Mucus,Urine Rare /hpf; Nitrite,Urine Positive (Negative); PH, Urine 5.5 (5.0-8.0); Protein,Urine Trace (Negative); RBC,Urine 10 /hpf (0-5); Specific Gravity,Urine 1.014 (1.001-1.035); Urobilinogen,Urine <2.0 mg/dL (<2.0); WBC,Urine >182 /hpf (0-5)
[2022-04-24] MEDS ORDERED: cefTRIAXone IN SWFI 1,000 MG/10 ML SYRINGE IVP STA (15:22)
[2022-04-24 16:25] VITALS: BP 129/65; PULSE 74; RESP 18
== END 2022-04-24 16:56 | disposition home or self-care (01) ==
LOC: EC 13:39
DX: N39.0 Urinary tract infection, site not specified (principal); Z20.822 Contact with and (suspected) exposure to COVID-19
CPT/HCPCS: 99284 ×2; 96374 ×2; 36415; 93005; 80053; 83605; 83735; 84484; 85025; 85610; 85730; 81001; 87086; 87077; 87186; 87635; 71046; J0696; 99285

== ENCOUNTER 2023-03-13 00:38 | Inpatient (IN) | payer MEDICARE, BC ==
[2023-03-13 01:43] LABS: Basophils % (A) 0 %; Eosinophils # (A) 0.2 k/uL (0-0.7); Eosinophils % (A) 1 %; HCT 35.1 % (39.0-53.0); HGB 11.8 gm/dL (13.0-17.5); Lymphocytes # (A) 0.6 k/uL (1.0-4.8); Lymphocytes % (A) 4 %; MCH 29.3 pg (25.0-35.0); MCHC 33.6 g/dL (31.0-37.0); MCV 87.2 fL (80.0-100.0); Mean Platelet Volume 7.3; Monocytes # (A) 0.8 k/uL (0-1.0); Monocytes % (A) 6 %; Neutrophils # (A) 11.6 k/uL (1.3-7.7); Neutrophils % (A) 87 %; Platelet Count 243 k/uL (150-450); RBC 4.03 m/uL (4.30-5.90); WBC 13.4 k/uL (3.8-10.6)
[2023-03-13 02:00] LABS: ALT 186 U/L (4-49); AST 116 U/L (17-59); African American GFR (CKD) 43 (>60 ml/min/1.73 sqM); Albumin 3.3 g/dL (3.5-5.0); Alkaline Phosphatase 403 U/L (38-126); Amylase 202 U/L (30-110); Anion Gap 9 mmol/L; Blood Urea Nitrogen 31 mg/dL (9-20); Calcium 8.6 mg/dL (8.4-10.2); Carbon Dioxide 22 mmol/L (22-30); Chloride 105 mmol/L (98-107); Glucose 132 mg/dL (74-99); Non-African American GFR(CKD) 37 (>60 ml/min/1.73 sqM); Potassium 4.4 mmol/L (3.5-5.1); Sodium 136 mmol/L (137-145); Total Bilirubin 3.1 mg/dL (0.2-1.3); Total Protein 6.8 g/dL (6.3-8.2)
[2023-03-13 02:29] LABS: Lipase 2255 U/L (23-300)
--- NOTE | 2023-03-13 02:29 | XR ---
EXAM: XR Abdomen, 1 View CLINICAL HISTORY: ITS.REASON XR Reason: abdominal pain TECHNIQUE: Frontal supine view of the abdomen/pelvis. COMPARISON: No relevant prior studies available. FINDINGS: Gastrointestinal tract: Moderate stool burden consistent with constipation. No dilation. Bones/joints: No acute osseous abnormalities. IMPRESSION: Moderate stool burden consistent with constipation.
[2023-03-13] MEDS ORDERED: SODIUM CHLORIDE 0.9% 1,000 ML IV STA (03:23)
[2023-03-13] MEDS ORDERED: SODIUM CHLORIDE 0.9% 1,000 ML IV SCH ×2 (03:30→06:45)
[2023-03-13] MEDS ORDERED: MORPHINE SULFATE 4 MG/ML SYRINGE IVP STA (06:09)
[2023-03-13] MEDS ORDERED: MORPHINE SULFATE 4 MG/ML SYRINGE IVP PRN (06:09)
[2023-03-13] MEDS ORDERED: ONDANSETRON 4 MG/2 ML VIAL IVP STA (06:09)
[2023-03-13] MEDS ORDERED: ONDANSETRON 4 MG/2 ML VIAL IVP PRN (06:09)
[2023-03-13] MEDS ORDERED: PANTOPRAZOLE 40 MG/10 ML VIAL IVP STA (06:09)
--- NOTE | 2023-03-13 06:12 | ED ---
Abdominal Pain HPI - General Chief Complaint: Abdominal Pain Stated Complaint: Abdominal Pain, Constipation Time Seen by Provider: 03/13/23 03:23 Source: patient, RN notes reviewed, old records reviewed Mode of arrival: ambulatory Limitations: no limitations - History of Present Illness Initial Comments: This is an 87-year-old male to the ER today. This patient resents today for evaluation regards to, pain which is severe with recent diminished bowel activity bowel output bowel movements. Patient feels constipated. His abdominal pain is persistent but he himself is no medical history takes no medications no surgical history. Patient denies any fever. In pain is persistent here in the ER MD Complaint: abdominal pain -: days(s) Location: diffuse, epigastric Radiation: epigastric Severity: moderate Severity scale (1-10): 7 Quality: cramping, aching, fullness, dull Consistency: constant Improves With: nothing Worsens With: nothing Associated Symptoms: nausea, constipation Treatments Prior to Arrival: other (0) - Related Data Home Medications Medication Instructions Recorded Confirmed Ascorbic Acid [Vitamin C] 500 mg PO DAILY 10/09/20 03/19/23 Cholecalciferol [Vitamin D3 (25 25 mcg PO DAILY 10/09/20 03/19/23 Mcg = 1000 Iu)] Fluticasone Propionate 2 spray PO DAILY 03/13/23 03/19/23 allopurinoL 200 mg PO DAILY 03/13/23 03/19/23 Previous Rx's Medication Instructions Recorded Pantoprazole [Protonix] 40 mg PO DAILY 15 Days #15 tab 03/15/23 Allergies Allergy/AdvReac Type Severity Reaction Status Date / Time No Known Allergies Allergy Verified 03/19/23 16:08 Review of Systems ROS Statement: Those systems with pertinent positive or pertinent negative responses have been documented in the HPI. ROS Other: All systems not noted in ROS Statement are negative. Past Medical History Past Medical History: No Reported History History of Any Multi-Drug Resistant Organisms: None Reported Additional Past Surgical History / Comment(s): eye surgery Past Psychological History: No Psychological Hx Reported Smoking Status: Never smoker Past Alcohol Use History: None Reported Past Drug Use History: None Reported General Exam Limitations: no limitations General appearance: alert, in no apparent distress Head exam: Present: atraumatic, normocephalic, normal inspection Eye exam: Present: normal appearance, PERRL, EOMI. Absent: scleral icterus, conjunctival injection, periorbital swelling ENT exam: Present: normal exam, mucous membranes moist Neck exam: Present: normal inspection. Absent: tenderness, meningismus, lymphadenopathy Respiratory exam: Present: normal lung sounds bilaterally. Absent: respiratory distress, wheezes, rales, rhonchi, stridor Cardiovascular Exam: Present: regular rate, normal rhythm, normal heart sounds. Absent: systolic murmur, diastolic murmur, rubs, gallop, clicks GI/Abdominal exam: Present: soft, tenderness, guarding, rebound, normal bowel sounds. Absent: distended, rigid Extremities exam: Present: normal inspection, full ROM, normal capillary refill. Absent: tenderness, pedal edema, joint swelling, calf tenderness Back exam: Present: normal inspection Neurological exam: Present: alert, oriented X3, CN II-XII intact Psychiatric exam: Present: normal affect, normal mood Skin exam: Present: warm, dry, intact, normal color. Absent: rash Course Vital Signs 03/13/23 03/13/23 03/13/23 00:40 04:15 10:07 Temperature 98.2 F Pulse Rate 85 58 L 55 L Respiratory 16 18 16 Rate Blood Pressure 158/68 150/77 143/86 O2 Sat by Pulse 96 97 99 Oximetry 03/13/23 03/13/23 11:30 12:46 Temperature 98.1 F 98.0 F Pulse Rate 57 L 55 L Respiratory 17 17 Rate Blood Pressure 148/71 150/82 O2 Sat by Pulse 98 98 Oximetry - Reevaluation(s) Reevaluation #1: 03/13/23 06:10 Medical record is reviewed Reevaluation #2: 03/13/23 06:10 Patient symptoms are improved, no bowel movement Reevaluation #3: 03/13/23 06:10 Patient informed results and questions are answered Reevaluation #4: 03/13/23 06:10 Was pt. sent in by a medical professional or institution (, PA, POLE SANDER OPERATOR, urgent care, hospital, or penitentiary...) When possible be specific @ -no Did you speak to anyone other than the patient for history (EMS, parent, family, police, friend...)? What history was obtained from this source @ -no Did you review nursing and triage notes (agree or disagree)? Why? @ -agree Are old charts reviewed (outside hosp., previous admission, EMS record, old EKG, old radiological studies, urgent care reports/EKG's, penitentiary records)? Report findings @ -yes Differential Diagnosis (chest pain, altered mental status, abdominal pain women, abdominal pain men, vaginal bleeding, weakness, fever, dyspnea, syncope, headache, dizziness, GI bleed, back pain, seizure, CVA, palpatations, mental health, musculoskeletal)? @ -prior EKG interpreted by me (3pts min.). @ -no X-rays interpreted by me (1pt min.). @ -no CT interpreted by me (1pt min.). @ -yes U/S interpreted by me (1pt. min.). @ -yes What testing was considered but not performed or refused? (CT, X-rays, U/S, labs)? Why? @ -none What meds were considered but not given or refused? Why? @ -none Did you discuss the management of the patient with other professionals (professionals i.e. , PA, POLE SANDER OPERATOR, lab, RT, psych nurse, social worker masters, managing consultant clinical professor, teacher, stream control officer, behavioral health case manager)? Give summary @ -no Was smoking cessation discussed for >3mins.? @ -no Was critical care preformed (if so, how long)? @ -yes Were there social determinants of health that impacted care today? How? (Homelessness, low income, unemployed, alcoholism, drug addiction, transportation, low edu. Level, literacy, decrease access to med. care, care home, rehab)? @ -none Was there de-escalation of care discussed even if they declined (Discuss DNR or withdrawal of care, Hospice)? DNR status @ -no What co-morbidities impacted this encounter? (DM, HTN, Smoking, COPD, CAD, Cancer, CVA, ARF, Chemo, Hep., AIDS, mental health diagnosis, sleep apnea, morbid obesity)? @ -none Was patient admitted / discharged? Hospital course, mention meds given and route, prescriptions, significant lab abnormalities, going to OR and other pertinent info. @ - 87 male to the emergency department for abdominal pain with constipation complicated with pancreatitis. Patient is having significant bowel movements here in the ER. Patient will be admitted for GI, surgical consult and symptom control Admitted Undiagnosed new problem with uncertain prognosis? @ -no Drug Therapy requiring intensive monitoring for toxicity (Heparin, Nitro, Insulin, Cardizem)? @ -no Were any procedures done? @ -no Diagnosis/symptom? @ -Acute gallstone pancreatitis, pancreatitis abdominal pain constipation urinary tract infection Acute, or Chronic, or Acute on Chronic? @ -Acute Uncomplicated (without systemic symptoms) or Complicated (systemic symptoms)? @ -Complicated Side effects of treatment? @ -no Exacerbation, Progression, or Severe Exacerbation? @ -exacerbation Poses a threat to life or bodily function? How? (Chest pain, [place], [place], pneumonia, PE, COPD, DKA, ARF, appy, cholecystitis, CVA, Diverticulitis, Homicidal, Suicidal, threat to staff... and all critical care pts) @ -yes severe pancreatitis Reevaluation #5: 03/13/23 06:10 And abdominal pain been - Consultations Consultation #1: Spoke with EM were greater than admit this patient Medical Decision Making - Medical Decision Making 87 male to the emergency department for abdominal pain with constipation complicated with pancreatitis. Patient is having significant bowel movements here in the ER. Patient will be admitted for GI, surgical consult and symptom control - Lab Data Result diagrams: 03/14/23 06:37 03/15/23 06:06 Lab Results 03/13/23 03/13/23 Range/Units 01:22 01:22 WBC 13.4 H (3.8-10.6) k/uL RBC 4.03 L (4.30-5.90) m/uL Hgb 11.8 L (13.0-17.5) gm/dL Hct 35.1 L (39.0-53.0) % MCV 87.2 (80.0-100.0) fL MCH 29.3 (25.0-35.0) pg MCHC 33.6 (31.0-37.0) g/dL RDW 14.0 (11.5-15.5) % Plt Count 243 (150-450) k/uL MPV 7.3 Neutrophils % 87 % Lymphocytes % 4 % Monocytes % 6 % Eosinophils % 1 % Basophils % 0 % Neutrophils # 11.6 H (1.3-7.7) k/uL Lymphocytes # 0.6 L (1.0-4.8) k/uL Monocytes # 0.8 (0-1.0) k/uL Eosinophils # 0.2 (0-0.7) k/uL Basophils # 0.0 (0-0.2) k/uL Sodium 136 L (137-145) mmol/L Potassium 4.4 (3.5-5.1) mmol/L Chloride 105 (98-107) mmol/L Carbon Dioxide 22 (22-30) mmol/L Anion Gap 9 mmol/L BUN 31 H (9-20) mg/dL Creatinine 1.65 H (0.66-1.25) mg/dL Est GFR (CKD-EPI)AfAm 43 (>60 ml/min/1.73 sqM) Est GFR (CKD-EPI)NonAf 37 (>60 ml/min/1.73 sqM) Glucose 132 H (74-99) mg/dL Calcium 8.6 (8.4-10.2) mg/dL Total Bilirubin 3.1 H (0.2-1.3) mg/dL AST 116 H (17-59) U/L ALT 186 H (4-49) U/L Alkaline Phosphatase 403 H (38-126) U/L Total Protein 6.8 (6.3-8.2) g/dL Albumin 3.3 L (3.5-5.0) g/dL Amylase 202 H (30-110) U/L Lipase 2255 H (23-300) U/L - Radiology Data Radiology results: report reviewed (CT abdomen and pelvis positive for constipation mild pancreatitis with gallstone disease, ultrasound is positive for cholecystitis chronic), image reviewed Critical Care Time Critical Care Time: Yes Total Critical Care Time: 31 Disposition Clinical Impression: Abdominal pain, Pancreatitis, Constipation, Cholecystitis, UTI (urinary tract infection), Choledocholithiasis, Gallstone pancreatitis Disposition: ADMITTED IP TO THIS [facility] Condition: Fair Is patient prescribed a controlled substance at d/c from ED?: No Time of Disposition: 06:00
[2023-03-13] MEDS ORDERED: NALOXONE 0.4 MG/ML 1 ML VIAL IV PRN (06:32)
[2023-03-13] MEDS ORDERED: AMPICILLIN-SULBACTAM 3 GM in SODIUM CHLORIDE 0.9% 100 ML IVPB STA (06:33)
--- NOTE | 2023-03-13 06:49 | CT ---
EXAM: CT Abdomen and Pelvis Without Intravenous Contrast CLINICAL HISTORY: ITS.REASON CT Reason: pain TECHNIQUE: Axial computed tomography images of the abdomen and pelvis without intravenous contrast. CTDI is 10.7 mGy and DLP is 722.9 mGy-cm. This CT exam was performed using one or more of the following dose reduction techniques: automated exposure control, adjustment of the mA and/or kV according to patient size, and/or use of iterative reconstruction technique. COMPARISON: CT Abdomen Pelvis dated october 09 2020 FINDINGS: Limitations: Limited evaluation in the absence of contrast. Lung bases: Dependent airspace disease with dilated bronchi. Findings likely relate to sequelae of chronic infection/aspiration changes. ABDOMEN: Liver: Unremarkable. Gallbladder and bile ducts: Dilated gallbladder measuring 5.5 cm in diameter and 10.8 cm in length. Mild adjacent stranding noted. Findings are favored to relate to cholecystitis. Given findings within the pancreas, findings may be due to biliary obstruction. Consider MRCP. Pancreas: Diffuse peripancreatic stranding surrounding the atrophied pancreas with dependent fluid along the left anterior layer of the pararenal fascia. Findings are favored to relate to acute on chronic pancreatitis. Consider multiphasic imaging or MRI if there is further concern for complications. Pancreatic parenchyma calcifications which likely relate to chronic pancreatitis. No ductal dilation. Spleen: Unremarkable. No splenomegaly. Adrenals: Unremarkable. No mass. Kidneys and ureters: No evidence of radiopaque renal calculi or signs of collecting system dilatation. Simple bilateral renal cysts. No follow-up of these simple cysts is necessary. Stomach and bowel: No evidence of bowel obstruction. Advanced colonic diverticulosis. No evidence of diverticulitis. PELVIS: Appendix: Normal appendix. Bladder: Diffuse bladder wall thickening, out of proportion to degree of underdistention. Findings can be seen with cystitis. Consider correlation with laboratory values. Reproductive: Prostatomegaly with prominent indentation of the bladder upon the prostate. ABDOMEN and PELVIS: Intraperitoneal space: Unremarkable. No free air. No significant fluid collection. Bones/joints: Degenerative changes in the spine. No acute fracture. No dislocation. Soft tissues: Umbilical hernia containing fat. Bilateral inguinal hernia containing fat. Vasculature: Atherosclerotic disease. No abdominal aortic aneurysm. Lymph nodes: Unremarkable. No enlarged lymph nodes. IMPRESSION: 1. Limited evaluation in the absence of contrast. 2. No evidence of radiopaque renal calculi or signs of collecting system dilatation. 3. Diffuse peripancreatic stranding surrounding the atrophied pancreas with dependent fluid along the left anterior layer of the pararenal fascia. Findings are favored to relate to acute on chronic pancreatitis. Consider multiphasic imaging or MRI if there is further concern for complications. 4. Dilated gallbladder measuring 5.5 cm in diameter and 10.8 cm in length. Mild adjacent stranding noted. Findings are favored to relate to cholecystitis. Given findings within the pancreas, findings may be due to biliary obstruction. Consider MRCP. 5. Diffuse bladder wall thickening, out of proportion to degree of underdistention. Findings can be seen with cystitis. Consider correlation with laboratory values. 6. Dependent airspace disease with dilated bronchi. Findings likely relate to sequelae of chronic infection/aspiration changes. 7. Other incidental findings as described.
--- NOTE | 2023-03-13 08:57 | US ---
EXAMINATION TYPE: US gallbladder DATE OF EXAM: 03/13/2023 COMPARISON: NONE CLINICAL INDICATION: Male, 87 years old with history of blanca; abnormal CT. Pancreatitis TECHNIQUE: Multiple sonographic images of the right upper quadrant are obtained. FINDINGS: EXAM MEASUREMENTS: Liver Length: 16.4 cm Gallbladder Wall: 0.4 cm Right Kidney: 11.3 x 4.7 x 4.3 cm LOCAL DRIVER NOTES: Technical limitations due to large amount of overlying bowel content Pancreas: Limited assessment due to shadowing from bowel gas. Liver: limited evaluation, visualized portions appear wnl Gallbladder: Hydropic measuring 5.2 cm wide. Multiple stones, mildly thickened GB wall Evidence for sonographic Fowler's sign: no CBD: Obscured by overlying bowel gas Right Kidney: Midpole cortical cyst measuring 1.1cm. No hydronephrosis. IMPRESSION: 1. Gallbladder wall thickening, hydropic change, and multiple gallstones. Given the negative sonograp hic Fowler sign, consider chronic cholecystitis. If the patient received pain medication, acute blanca cystitis is also a consideration. 2. The bile duct is obscured by bowel gas shadowing and could not be assessed by ultrasound. 3. Limited assessment of the pancreas as well due to bowel gas shadowing.
[2023-03-13] MEDS: PANTOPRAZOLE 40 MG/10 ML VIAL IV SCH (10:10)
[2023-03-13 10:30] LABS: ALT 158 U/L (4-49); AST 86 U/L (17-59); African American GFR (CKD) 54 (>60 ml/min/1.73 sqM); Albumin/Globulin Ratio 0.9; Alkaline Phosphatase 366 U/L (38-126); Anion Gap 6 mmol/L; Blood Urea Nitrogen 27 mg/dL (9-20); Carbon Dioxide 23 mmol/L (22-30); Chloride 109 mmol/L (98-107); Globulin 3.4 g/dL; Glucose 103 mg/dL (74-99); Lipase 1413 U/L (23-300); Non-African American GFR(CKD) 47 (>60 ml/min/1.73 sqM); Potassium 4.4 mmol/L (3.5-5.1); Sodium 138 mmol/L (137-145); Total Protein 6.4 g/dL (6.3-8.2)
[2023-03-13 10:37] LABS: Prothrombin Time 10.9 sec (9.0-12.0)
[2023-03-13] MEDS: SODIUM CHLORIDE 0.9% 1,000 ML IV SCH ×2 (11:01→20:59)
--- NOTE | 2023-03-13 12:06 | P.HPIM ---
History of Present Illness 87-year-old pleasant male came in with complaints of nausea vomiting epigastric severe abdominal pain started about 3 days ago. Patient is found to have an keratitis with highly elevated lipase of 22,500 CT of the abdomen did show p ancreatitis acute on chronic. Patient does have gallstones which was at which was evident on ultrasound with the possibility of dilated bile ducts. Patient does have elevated AST and ALT with elevated bilirubin patient's serum creatinine is 1.37 this is close to his baseline. Patient pain improved at this time patient does have leukocytosis doesn't have any fever lipase is coming down. REVIEW OF SYSTEMS: CONSTITUTIONAL: No fever, no malaise, no fatigue. HEENT: No recent visual problems or hearing problems. Denied any sore throat. CARDIOVASCULAR: No chest pain, orthopnea, PND, no palpitations, no syncope. PULMONARY: No shortness of breath, no cough, no hemoptysis. GASTROINTESTINAL: As mentioned in HPI NEUROLOGICAL: No headaches, no weakness, no numbness. HEMATOLOGICAL: Denies any bleeding or petechiae. GENITOURINARY: Denies any burning micturition, frequency, or urgency. MUSCULOSKELETAL/RHEUMATOLOGICAL: Denies any joint pain, swelling, or any muscle pain. ENDOCRINE: Denies any polyuria or polydipsia. The rest of the 14-point review of systems is negative. PHYSICAL EXAMINATION: GENERAL: The patient is alert and oriented x3, not in any acute distress. Well developed, well nourished. HEENT: Pupils are round and equally reacting to light. EOMI. No scleral icterus. No conjunctival pallor. Normocephalic, atraumatic. No pharyngeal erythema. No thyromegaly. CARDIOVASCULAR: S1 and S2 present. No murmurs, rubs, or gallops. PULMONARY: Chest is clear to auscultation, no wheezing or crackles. ABDOMEN: Soft, mild epigastric and right upper quadrant tenderness, no ndistended, normoactive bowel sounds. No palpable organomegaly. MUSCULOSKELETAL: No joint swelling or deformity. EXTREMITIES: No cyanosis, clubbing, or pedal edema. NEUROLOGICAL: Gross neurological examination did not reveal any focal deficits. SKIN: No rashes. Assessment and plan 1 gallstone pancreatitis patient will remain nothing by mouth today possibly start him on clear liquid tomorrow. Patient does have gallstones because of which the gastric body was consulted MRI of the pancreas and liver were ordered to assess for any common bile duct stone. A repeat liver enzymes tomorrow. Seth bellamy will need cholecystectomy eventually once pancreatitis is better because original surgery was consulted. We will use IV Tylenol for pain -Chronic kidney disease stage III: Probably nephrosclerosis and age-related. -Leukocytosis secondary to pancreatitis -Transaminitis secondary to gallstones and probably, and there is a possibility of common bile duct stone DVT prophylaxis: Subcutaneous heparin Past Medical History Past Medical History: No Reported History History of Any Multi-Drug Resistant Organisms: None Reported Additional Past Surgical History / Comment(s): eye surgery Past Psychological History: No Psychological Hx Reported Smoking Status: Never smoker Past Alcohol Use History: None Reported Past Drug Use History: None Reported Medications and Allergies Home Medications Medication Instructions Recorded Confirmed Type Ascorbic Acid [Vitamin C] 500 mg PO DAILY 10/09/20 03/13/23 History Cholecalciferol [Vitamin D3 (25 25 mcg PO DAILY 10/09/20 03/13/23 History Mcg = 1000 Iu)] Fluticasone Propionate 2 spray PO DAILY 03/13/23 03/13/23 History allopurinoL 200 mg PO DAILY 03/13/23 03/13/23 History Allergies Allergy/AdvReac Type Severity Reaction Status Date / Time No Known Allergies Allergy Verified 03/13/23 07:58 Physical Exam Vitals: Vital Signs Temp Pulse Resp BP Pulse Ox 03/13/23 11:30 98.1 F 57 L 17 148/71 98 03/13/23 10:07 55 L 16 143/86 99 03/13/23 04:15 58 L 18 150/77 97 03/13/23 00:40 98.2 F 85 16 158/68 96 Intake and Output 03/12/23 03/13/23 03/13/23 22:59 06:59 14:59 Other: Weight 90.718 kg Results CBC & Chem 7: 03/13/23 01:22 03/13/23 10:01 Labs: Abnormal Lab Results - Last 24 Hours (Table) 03/13/23 03/13/23 03/13/23 Range/Units : 01:22 10:01 WBC 13.4 H (3.8-10.6) k/uL RBC 4.03 L (4.30-5.90) m/uL Hgb 11.8 L (13.0-17.5) gm/dL Hct 35.1 L (39.0-53.0) % Neutrophils # 11.6 H (1.3-7.7) k/uL Lymphocytes # 0.6 L (1.0-4.8) k/uL Sodium 136 L (137-145) mmol/L Chloride 109 H (98-107) mmol/L BUN 31 H 27 H (9-20) mg/dL Creatinine 1.65 H 1.37 H (0.66-1.25) mg/dL Glucose 132 H 103 H (74-99) mg/dL Calcium 8.0 L (8.4-10.2) mg/dL Total Bilirubin 3.1 H 3.0 H (0.2-1.3) mg/dL AST 116 H 86 H (17-59) U/L ALT 186 H 158 H (4-49) U/L Alkaline Phosphatase 403 H 366 H (38-126) U/L Albumin 3.3 L 3.0 L (3.5-5.0) g/dL Amylase 202 H (30-110) U/L Lipase 2255 H 1413 H (23-300) U/L
--- NOTE | 2023-03-13 12:55 | P.GSCN ---
History of Present Illness Consult date: 03/13/23 History of present illness: CHIEF COMPLAINT: Abdominal pain HISTORY OF PRESENT ILLNESS: This is a 87-year-old male with history of gallstones. Patient presents to the hospital complaints of mid abdominal pain 4 days. He did have an episode of vomiting on Sunday. Patient reports that the pain was in the mid abdomen and radiated around to lower abdomen. Patient reports that he felt constipated. He did have a large bowel movement in the ER and since then abdominal pain has improved. He denies any abdominal pain at this time. Denies any pain after eating. Denies any fever chills or sweats. She denies any prior alcohol use. Patient denies any prior history of pancreatitis. Patient had a computed tomography scan of the abdomen and pelvis had tremors acute on chronic pancreatitis and a dilated gallbladder. Patient's liver enzymes are elevated total bili elevated at 3.1 and lipase also elevated. Patient diagnosed with possible gallstone pancreatitis. Patient also being followed by GI service. Patient denies any abdominal surgical history. Denies any cardiac history. PAST MEDICAL HISTORY: See below PAST SURGICAL HISTORY: See below MEDICATIONS: See below ALLERGIES: See below SOCIAL HISTORY: No illicit drug use. REVIEW OF SYSTEMS: CONSTITUTIONAL: Denies fever or chills. HEENT: Denies blurred vision, vision changes, or eye pain. Denies hemoptysis CARDIOVASCULAR: Denies chest pain or pressure. RESPIRATORY: No shortness of breath. GASTROINTESTINAL: See HPI for pertinent findings HEMATOLOGIC: Denies bleeding disorders. GENITOURINARY: Denies any blood in urine or increased urinary frequency. SKIN: Denies pruitis. Denies rash. PHYSICAL EXAM: VITAL SIGNS: Reviewed GENERAL: Well-developed in no acute distress. ABDOMEN: Soft. Nondistended. Nontender NEUROLOGIC: Alert and oriented. Cranial nerves II through XII grossly intact. LABORATORY DATA: WBC 13.4 Hgb 11.8 platelets 243 Sodium is 138 potassium 4.4 creatinine 1.37 Total bilirubin 3.1-3.0 AST 0.16 down to 86 ALT 186-158 alk phos 403 down to 366 Lipase 2255 down to 1413 IMAGING: Computed tomography scan abdomen and pelvis no evidence of radiopaque renal calculi. Diffuse peripancreatic stranding surrounding the atrophied pancreas with dependent fluid along the left anterior layer of the pararenal shop. Findings are favored to relate to acute on chronic pancreatitis. Dilated gallbladder. Mild adjacent stranding noted. Findings are favored to relate cholecystitis. Given findings with pancreas, findings may be due to biliary obstruction. Consider MRCP. Diffuse bladder wall thickening out of portion to degree of bladder distention. Findings can be seen with cystitis. Abdominal ultrasound gallbladder wall thickening, hydropic change and multiple gallstones. Bile duct is obscured by bowel gas shadowing ASSESSMENT: 1. Gallstone pancreatitis 2. Acute cholecystitis 3. Constipation PLAN: -MRCP has been ordered by GI service -Keep patient nothing by mouth -Repeat labs in a.m. -Continue antibiotics -Continue supportive care -Further recommendations forthcoming per surgeon Physician Dental Scheduling Coordinator note has been reviewed by physician. Signing provider agrees with the documented findings, assessment, and plan of care. I have personally seen and examined the patient, reviewed the CONSTRUCTION CODE ADMINISTRATOR /PAs history, exam and MDM and agree with the assessment and plan as written. Based on total visit time, I have performed more than 50% of the visit. As above: Patient with upper abdominal pain and workup consistent with gallstone pancreatitis. Doing well currently. Labs improving. MRCP results noted. Continue clear liquids. Will follow. Past Medical History Past Medical History: No Reported History History of Any Multi-Drug Resistant Organisms: None Reported Additional Past Surgical History / Comment(s): eye surgery Past Psychological History: No Psychological Hx Reported Smoking Status: Never smoker Past Alcohol Use History: None Reported Past Drug Use History: None Reported Medications and Allergies Home Medications Medication Instructions Recorded Confirmed Type Ascorbic Acid [Vitamin C] 500 mg PO DAILY 10/09/20 03/13/23 History Cholecalciferol [Vitamin D3 (25 25 mcg PO DAILY 10/09/20 03/13/23 History Mcg = 1000 Iu)] Fluticasone Propionate 2 spray PO DAILY 03/13/23 03/13/23 History allopurinoL 200 mg PO DAILY 03/13/23 03/13/23 History Allergies Allergy/AdvReac Type Severity Reaction Status Date / Time No Known Allergies Allergy Verified 03/13/23 07:58 Surgical - Exam Vital Signs Temp Pulse Resp BP Pulse Ox 98.2 F 85 16 158/68 96 03/13/23 00:40 03/13/23 00:40 03/13/23 00:40 03/13/23 00:40 03/13/23 00:40 Results - Labs 03/13/23 01:22 08/01/23 10:01 Abnormal Lab Results - Last 24 Hours (Table) 03/13/23 03/13/23 03/13/23 Range/Units 01: 01: 10:01 WBC 13.4 H (3.8-10.6) k/uL RBC 4.03 L (4.30-5.90) m/uL Hgb 11.8 L (13.0-17.5) gm/dL Hct 35.1 L (39.0-53.0) % Neutrophils # 11.6 H (1.3-7.7) k/uL Lymphocytes # 0.6 L (1.0-4.8) k/uL Sodium 136 L (137-145) mmol/L Chloride 109 H (98-107) mmol/L BUN 31 H 27 H (9-20) mg/dL Creatinine 1.65 H 1.37 H (0.66-1.25) mg/dL Glucose 132 H 103 H (74-99) mg/dL Calcium 8.0 L (8.4-10.2) mg/dL Total Bilirubin 3.1 H 3.0 H (0.2-1.3) mg/dL AST 116 H 86 H (17-59) U/L ALT 186 H 158 H (4-49) U/L Alkaline Phosphatase 403 H 366 H (38-126) U/L Albumin 3.3 L 3.0 L (3.5-5.0) g/dL Amylase 202 H (30-110) U/L Lipase 2255 H 1413 H (23-300) U/L Diabetes panel 03/13/23 03/13/23 Range/Units 01:22 10:01 Sodium 136 L 138 (137-145) mmol/L Potassium 4.4 4.4 (3.5-5.1) mmol/L Chloride 105 109 H (98-107) mmol/L Carbon Dioxide 22 23 (22-30) mmol/L BUN 31 H 27 H (9-20) mg/dL Creatinine 1.65 H 1.37 H (0.66-1.25) mg/dL Glucose 132 H 103 H (74-99) mg/dL Calcium 8.6 8.0 L (8.4-10.2) mg/dL AST 116 H 86 H (17-59) U/L ALT 186 H 158 H (4-49) U/L Alkaline Phosphatase 403 H 366 H (38-126) U/L Total Protein 6.8 6.4 (6.3-8.2) g/dL Albumin 3.3 L 3.0 L (3.5-5.0) g/dL Calcium panel 03/13/23 03/13/23 Range/Units 01:22 10:01 Calcium 8.6 8.0 L (8.4-10.2) mg/dL Albumin 3.3 L 3.0 L (3.5-5.0) g/dL Pituitary panel 03/13/23 03/13/23 Range/Units 01:22 10:01 Sodium 136 L 138 (137-145) mmol/L Potassium 4.4 4.4 (3.5-5.1) mmol/L Chloride 105 109 H (98-107) mmol/L Carbon Dioxide 22 23 (22-30) mmol/L BUN 31 H 27 H (9-20) mg/dL Creatinine 1.65 H 1.37 H (0.66-1.25) mg/dL Glucose 132 H 103 H (74-99) mg/dL Calcium 8.6 8.0 L (8.4-10.2) mg/dL Adrenal panel 03/13/23 03/13/23 Range/Units 01:22 10:01 Sodium 136 L 138 (137-145) mmol/L Potassium 4.4 4.4 (3.5-5.1) mmol/L Chloride 105 109 H (98-107) mmol/L Carbon Dioxide 22 23 (22-30) mmol/L BUN 31 H 27 H (9-20) mg/dL Creatinine 1.65 H 1.37 H (0.66-1.25) mg/dL Glucose 132 H 103 H (74-99) mg/dL Calcium 8.6 8.0 L (8.4-10.2) mg/dL Total Bilirubin 3.1 H 3.0 H (0.2-1.3) mg/dL AST 116 H 86 H (17-59) U/L ALT 186 H 158 H (4-49) U/L Alkaline Phosphatase 403 H 366 H (38-126) U/L Total Protein 6.8 6.4 (6.3-8.2) g/dL Albumin 3.3 L 3.0 L (3.5-5.0) g/dL
--- NOTE | 2023-03-13 13:09 | P.CONS ---
History of Present Illness - Reason for Consult Consult date: 03/13/23 Pancreatitis Requesting physician: John Horne - Chief Complaint Abdominal pain, constipation - History of Present Illness This is a pleasant 87-year-old male with no past medical history reported. Who came into the emergency department with complaints of mid to lower abdominal pain with constipation for last 4 days duration. Patient states that he was recently on a family trip to [place] and he within the house and did not walk much, he states he did not eat his normal foods and he became constipated. He has since had 3 bowel movements since he came to the emergency department. He states he has no abdominal pain at this time. He denies any previous history of chronic constipation or significant abdominal pain. He had a CT of the abdomen and pelvis concerning for acute cholecystitis, acute pancreatitis and cystitis. He also had a ultrasound of the gallbladder showing concerns for gallbladder wall thickening as well as gallstones. Admitting labs WBC 13.4 hemoglobin 11.8 hematocrit 35 platelet count 243 sodium 136 potassium 4.4 BUN 31 creatinine 1.65 total bilirubin 3.1 AST 116 ALT 186 alkaline phosphatase 403 amylase 202 lipase 2255. Patient denies any previous history of gallbladder disease or pancreatitis. Denies any history of liver disease. Denies any dark urine, he states it looks like lemonade. Review of Systems REVIEW OF SYSTEMS: CARDIOPULMONARY: No chest pain or shortness of breath. Gastrointestinal: Mid to lower abdominal pain. Constipation. No nausea or vomiting. No hematemesis, coffee-ground emesis. GENITOURINARY: No dysuria or hematuria. MUSCULOSKELETAL: Reports normal range of motion. SKIN: No rashes. No jaundice. ENDOCRINE: No chills, fevers. No excessive weight gain or loss. No polydipsia or polyuria. PSYCHIATRIC: Unremarkable. NEUROLOGY: No change in mental status. Denies dizziness, headache. ENT: Vision unremarkable. CONSTITUTIONAL: No recent weight loss. No fever, chills, night sweats. Past Medical History Past Medical History: No Reported History History of Any Multi-Drug Resistant Organisms: None Reported Additional Past Surgical History / Comment(s): eye surgery Past Psychological History: No Psychological Hx Reported Smoking Status: Never smoker Past Alcohol Use History: None Reported Past Drug Use History: None Reported Medications and Allergies Home Medications Medication Instructions Recorded Confirmed Type Ascorbic Acid [Vitamin C] 500 mg PO DAILY 10/09/20 03/13/23 History Cholecalciferol [Vitamin D3 (25 25 mcg PO DAILY 10/09/20 03/13/23 History Mcg = 1000 Iu)] Fluticasone Propionate 2 spray PO DAILY 03/13/23 03/13/23 History allopurinoL 200 mg PO DAILY 03/13/23 03/13/23 History Allergies Allergy/AdvReac Type Severity Reaction Status Date / Time No Known Allergies Allergy Verified 03/13/23 07:58 Physical Exam Vitals: Vital Signs Temp Pulse Resp BP Pulse Ox 03/13/23 04:15 58 L 18 150/77 97 03/13/23 00:40 98.2 F 85 16 158/68 96 Intake and Output 03/12/23 03/13/23 03/13/23 22:59 06:59 14:59 Other: Weight 90.718 kg General appearance: The patient is alert, oriented, appears in no acute distress. HET: Head is normocephalic and atraumatic. Conjunctiva pink. Sclera anicteric. Neck: Supple without lymphadenopathy. Trachea midline. Heart: S1 S2. Regular rate and rhythm. Lungs: Clear to auscultation. Abdomen: Soft, nontender, nondistended with bowel sounds. No guarding or rigidity. Skin: No rashes. Jaundice. Extremities: Normal skin color and turgor. No pedal edema. Neurological: No focal deficits. Alert and oriented x3. Results CBC & Chem 7: 03/13/23 01:22 03/13/23 10:01 Labs: Abnormal Lab Results - Last 24 Hours (Table) 03/13/23 03/13/23 Range/Units : 01:22 WBC 13.4 H (3.8-10.6) k/uL RBC 4.03 L (4.30-5.90) m/uL Hgb 11.8 L (13.0-17.5) gm/dL Hct 35.1 L (39.0-53.0) % Neutrophils # 11.6 H (1.3-7.7) k/uL Lymphocytes # 0.6 L (1.0-4.8) k/uL Sodium 136 L (137-145) mmol/L BUN 31 H (9-20) mg/dL Creatinine 1.65 H (0.66-1.25) mg/dL Glucose 132 H (74-99) mg/dL Total Bilirubin 3.1 H (0.2-1.3) mg/dL AST 116 H (17-59) U/L ALT 186 H (4-49) U/L Alkaline Phosphatase 403 H (38-126) U/L Albumin 3.3 L (3.5-5.0) g/dL Amylase 202 H (30-110) U/L Lipase 2255 H (23-300) U/L Comments: Gallbladder ultrasound reports gallbladder wall thickening, hydropic change, multiple gallstones. Given the negative sonographic Fowler's sign consider chronic cholecystitis. If the patient received pain medication acute blanca cystitis is also a consideration. Bile duct is obscured by bowel gas shadowing and could not be assessed by ultrasound. Limited assessment of pancreas due to bowel gas shadowing. CT abdomen and pelvis without contrast reports limited evaluation in the absence of contrast. No evidence of radiopaque renal calculi or signs of collecting system dilation. Diffuse. Pancreatic stranding surrounding the atrophied pancreas with dependent fluid along the left anterior layer of the pararenal fascia. Findings are favored to relate to acute on chronic pancreatitis. Consider multiphasic imaging or MRI if there is further concern for complications. Dilated gallbladder measuring 5.5 cm in diameter and 10.8 cm in length. Mild adjacent stranding noted. Findings are favored to relate to cholecystitis. Given findings within the pancreas findings may be due to biliary obstruction. Consider MRCP. Diffuse bladder wall thickening out of proportion to degree of under distention. Findings can be seen with cystitis consider correlation with laboratory values. Dependent airspace disease with dilated bronchi. Findings likely related to sequela of chronic infection/aspiration changes. Assessment and Plan (1) Pancreatitis Narrative/Plan: 87-year-old presenting to the emergency department with abdominal pain and constipation. Imaging found to have gallstone pancreatitis, cholecystitis however patient denies any abdominal pain at this time. Denies any previous history of gallbladder issues, denies any previous history of liver disease or pancreatitis. Amylase and lipase elevated consistent with acute pancreatitis. LFTs with possible cholestatic pattern and could be consistent with choledocholithiasis. Discussed with patient and family that labs look consistent with possible biliary obstruction and recommendation would be to c onsider ERCP. Patient is refusing any procedures at this time as he states he is not in pain. Did discuss alternative of MRCP and patient willing to undergo MRCP imaging Current Visit: Yes Status: Acute Code(s): K85.90 - ACUTE PANCREATITIS WITHOUT NECROSIS OR INFECTION, UNSP SNOMED Code(s): 55137864 (2) Cholecystitis Current Visit: Yes Status: Acute Code(s): K81.9 - CHOLECYSTITIS, UNSPECIFIED SNOMED Code(s): 14770425 (3) Abdominal pain Current Visit: Yes Status: Acute Code(s): R10.9 - UNSPECIFIED ABDOMINAL PAIN SNOMED Code(s): 69424258 (4) Constipation Current Visit: Yes Status: Acute Code(s): K59.00 - CONSTIPATION, UNSPECIFIED SNOMED Code(s): 21504031 Plan: 1. Continue symptomatic and supportive care 2. Keep nothing by mouth 3. CMP, INR ordered 4. Daily CBC, CMP, lipase 5. Discussed imaging findings as well as laboratory findings with patient and his family who were at the bedside. Discussed proceeding with ERCP to evaluate for CBD obstruction. Patient is refusing any procedures at this time. Did discuss MRCP and patient was willing to proceed. 6. MRCP ordered stat 7. Appreciate recommendations from general surgery 8. Further recommendations forthcoming based on clinical course Thank you for this consultation, we will continue to follow. Dr. Daniel Elizalde I agree with the dictator's note, documented as a scribe by Vianney Stephen.
[2023-03-13] MEDS: AMPICILLIN-SULBACTAM 3 GM in SODIUM CHLORIDE 0.9% 100 ML IVPB SCH (16:24)
--- NOTE | 2023-03-13 17:31 | MR ---
EXAMINATION TYPE: MR MRCP DATE OF EXAM: 03/13/2023 3:11 PM CLINICAL INDICATION:Male, 87 years old with history of gallstone pancreatitis; Gallstone, pancreatiti s, evaluate for CBD stone/obstruction COMPARISON: Ultrasound 03/13/2023, CT 03/13/2023. TECHNIQUE: Multi planar, T2-weighted imaging with and without fat saturation and chemical shift imag ing was performed of the abdomen. Then, heavily T2 weighted imaging (half-Fourier acquisition single- shot turbo spin-echo) was utilized in order to study the biliary system. Maximum intensity projectio n images were reconstructed from the original data of the biliary tree. 3D images were created on a [employer] work station. No Gadolinium given. FINDINGS: Lower Thorax: No evidence for acute process. MRCP: * The intrahepatic ducts have a normal appearance. * The common bile duct at the level of the pancreatic head measures 5 mm in size. * The common hepatic duct measures 5 mm in size. * The pancreatic duct is within normal limits for size.. * Respiratory motion limits evaluation. The gallbladder appears multiple low T1 signal gallstones pr esent. There is wall thickening along the medial margin near the expected location of the gallbladder neck. Finding could represent dilated gallbladder neck. Measuring up to 12 mm. This limits evaluatio n the cystic duct secondary to motion. Abdomen: Liver: Unremarkable. Pancreas: Peripancreatic high T2 streaky edema seen throughout the adjacent soft tissues and within t he pancreas predominantly itself.. Pancreatic duct is not dilated There is high T2 cystic 8.9 mm cyst ic structure present. No suspicious masses definitively visualized on this motion limited exam. Spleen: Unremarkable. Adrenal glands: Unremarkable. Kidneys: Bilateral renal cortical simple appearing cysts which are high T2 signal low T1 signal. Stomach and Bowel: Unremarkable as visualized. Scattered colonic diverticula. Peritoneum: No evidence of pneumoperitoneum or free fluid. Vasculature: Unremarkable. No aortic aneurysm. Musculoskeletal: The osseous structures appear intact. Lymph Nodes: No gross evidence for lymphadenopathy. Abdominal wall: Unremarkable. IMPRESSION: 1. No evidence to suggest ductal stricture, choledocholithiasis, or biliary ductal dilatation. Extra hepatic biliary system is within normal limits for size. 2. Acute pancreatitis changes similar CT findings. Correlate with serum lipase. 3. Findings suspicious for chronic cholecystitis with Gallbladder wall thickening, trace pericholecy stic fluid, and multiple gallstones within the gallbladder lumen. Motion limits evaluation of the cys tic duct. 4. High T2 cystic lesions within the pancreatic parenchyma suspicious for pseudocyst versus side bra nch intraductal papillary mucinous neoplasms. Pancreatic main duct is within normal limits for size. 5. Colonic diverticulosis.
[2023-03-13] MEDS: ACETAMINOPHEN IV (For NPO) 1,000 MG in EMPTY BAG 1 BAG IVPB SCH (18:14)
[2023-03-13] MEDS: HEPARIN SODIUM,PORCINE/PF 5,000 UNIT/0.5 ML SYRINGE SQ SCH (20:58)
[2023-03-14] MEDS: AMPICILLIN-SULBACTAM 3 GM in SODIUM CHLORIDE 0.9% 100 ML IVPB SCH ×3 (00:06→17:02)
[2023-03-14] MEDS: ACETAMINOPHEN IV (For NPO) 1,000 MG in EMPTY BAG 1 BAG IVPB SCH ×3 (00:08→13:36)
[2023-03-14] MEDS: PANTOPRAZOLE 40 MG/10 ML VIAL IV SCH (08:20)
[2023-03-14] MEDS: ASCORBIC ACID 500 MG TAB PO SCH (08:38)
[2023-03-14] MEDS: CHOLECALCIFEROL 25 MCG (1000 IU) TABLET PO SCH (08:38)
[2023-03-14] MEDS: allopurinoL 100 MG TAB PO SCH (08:39)
[2023-03-14] MEDS: HEPARIN SODIUM,PORCINE/PF 5,000 UNIT/0.5 ML SYRINGE SQ SCH ×2 (08:39→20:42)
[2023-03-14 11:54] LABS: Basophils # (A) 0.02 X 10*3/uL (0.00-0.10); Basophils % (A) 0.2 %; Eosinophils # (A) 0.26 X 10*3/uL (0.04-0.35); Eosinophils % (A) 2.6 %; HCT 32.3 % (39.6-50.0); HGB 10.1 d/dL (13.0-17.0); Lymphocytes # (A) 0.64 X 10*3/uL (0.90-5.00); Lymphocytes % (A) 6.4 %; MCH 27.9 pg (27.0-32.0); MCHC 31.3 d/dL (32.0-37.0); MCV 89.2 FL (80.0-97.0); Mean Platelet Volume 9.8 FL (9.5-12.2); Monocytes # (A) 0.94 X 10*3/uL (0.20-1.00); Monocytes % (A) 9.4 %; NRBC Per 100 WBC 0 X 10*3/uL (0.00-0.01); Neutrophils # (A) 8.09 X 10*3/uL (1.80-7.70); Neutrophils % (A) 81.2 %; Platelet Count 217 X 10*3/uL (140-440); RBC 3.62 X 10*6/uL (4.40-5.60); RDW 14.2 % (11.5-14.5); WBC 9.97 X 10*3/uL (4.50-10.00)
[2023-03-14 12:15] LABS: ALT 108 U/L (10-49); AST 47 U/L (14-35); Albumin 2.8 d/dL (3.8-4.9); Albumin/Globulin Ratio 1.17 Ratio (1.60-3.17); Alkaline Phosphatase 356 U/L (41-126); BUN/Creat Ratio 13.73 Ratio (12.00-20.00); Blood Urea Nitrogen 20.6 mg/dL (9.0-27.0); Calcium 7.9 mg/dL (8.7-10.3); Carbon Dioxide 22.2 mmol/L (21.6-31.8); Chloride 109 mmol/L (96-109); Globulin 2.4 d/dL (1.6-3.3); Glucose 86 mg/dL (70-110); Lipase 176 U/L (14-60); Potassium 4.4 mmol/L (3.5-5.5); Sodium 139 mmol/L (135-145); Total Bilirubin 1.9 mg/dL (0.3-1.2); Total Protein 5.2 d/dL (6.2-8.2)
--- NOTE | 2023-03-14 14:56 | P.PN ---
Subjective Progress Note Date: 03/14/23 CHIEF COMPLAINT: Gallstone pancreatitis HISTORY OF PRESENT ILLNESS: Patient denies any abdominal pain. Denies any nausea vomiting. MRCP shows no evidence of ductal stricture, choledocholithiasis or biliary ductal dilatation. Acute pancreatitis noted. Findings suspicious for chronic cholecystitis with gallbladder wall thickening, trace pericholecystic fluid and multiple gallstones within the gallbladder lumen. High T2 cystic lesions within the pancreatic parenchyma suspicious for pseudocyst versus intraductal papillary mucinous neoplasms. Afebrile. WBC is 9.97 total bilirubin is down from 3.0-1.9 liver enzymes trending down. Lipase down to 176. PHYSICAL EXAM: VITAL SIGNS: Reviewed. GENERAL: Well-developed in no acute distress. ABDOMEN: Soft. Nondistended. Nontender. NEUROLOGIC: Alert and oriented. Cranial nerves II through XII grossly intact. ASSESSMENT: 1. Gallstone pancreatitis 2. Cholecystitis 3. Constipation PLAN: -Likely plan for outpatient laparoscopic cholecystectomy -Advance diet to full liquids -Continue to monitor patient -Repeat CMP in AM -Continue antibiotics -Continue supportive care Physician Metal Window Screen Assembler note has been reviewed by physician. Signing provider agrees with the documented findings, assessment, and plan of care. Objective - Vital Signs Vital signs: Vital Signs Temp 98.7 F 03/14/23 07:52 Pulse 57 L 03/14/23 09:49 Resp 18 03/14/23 09:49 BP 146/64 03/14/23 07:52 Pulse Ox 100 03/14/23 07:52 FiO2 Intake & Output 03/13/23 03/14/23 03/14/23 18:59 06:59 18:59 Intake Total 1000 Balance 1000 Weight 90.718 kg Intake: Intake, IV Titration 1000 Amount Ampicillin-Sulbactam 3 gm 100 In Sodium Chloride 0.9% 100 ml @ 200 mls/hr IVPB Q8HR [facility] Rx#:[id number] Sodium Chloride 0.9% 1, 900 000 ml @ 75 mls/hr IV . [id number] [facility] Rx#:[id number] Other: Voiding Method Toilet Toilet # Voids 1 3 - Labs CBC & Chem 7: 03/14/23 06:37 03/14/23 06:37 Labs: Abnormal Lab Results - Last 24 Hours (Table) 03/14/23 03/14/23 Range/Units 06:37 06:37 RBC 3.62 L (4.40-5.60) X 10*6/uL Hgb 10.1 L (13.0-17.0) d/dL Hct 32.3 L (39.6-50.0) % MCHC 31.3 L (32.0-37.0) d/dL Neutrophils # 8.09 H (1.80-7.70) X 10*3/uL Lymphocytes # 0.64 L (0.90-5.00) X 10*3/uL Est GFR (CKD-EPI) 45 L (>=60) Calcium 7.9 L (8.7-10.3) mg/dL Total Bilirubin 1.9 H (0.3-1.2) mg/dL AST 47 H (14-35) U/L ALT 108 H (10-49) U/L Alkaline Phosphatase 356 H (41-126) U/L Total Protein 5.2 L (6.2-8.2) d/dL Albumin 2.8 L (3.8-4.9) d/dL Albumin/Globulin Ratio 1.17 L (1.60-3.17) Ratio Lipase 176 H (14-60) U/L
[2023-03-14] MEDS: SODIUM CHLORIDE 0.9% 1,000 ML IV SCH ×2 (15:07→20:43)
--- NOTE | 2023-03-14 16:03 | P.PN ---
Subjective Progress Note Date: 03/14/23 Principal diagnosis: Gallstone pancreatitis This is a pleasant 87-year-old male with no past medical history reported. Who came into the emergency department with complaints of mid to lower abdominal pain with constipation for last 4 days duration. Patient states that he was recently on a family trip to [place] and he within the house and did not walk much, he states he did not eat his normal foods and he became constipated. He has since had 3 bowel movements since he came to the emergency department. He states he has no abdominal pain at this time. He denies any previous history of chronic constipation or significant abdominal pain. He had a CT of the abdomen and pelvis concerning for acute cholecystitis, acute pancreatitis and cystitis. He also had a ultrasound of the gallbladder showing concerns for gallbladder wall thickening as well as gallstones. Admitting labs WBC 13.4 hemoglobin 11.8 hematocrit 35 platelet count 243 sodium 136 potassium 4.4 BUN 31 creatinine 1.65 total bilirubin 3.1 AST 116 ALT 186 alkaline phosphatase 403 amylase 202 lipase 2255. Patient denies any previous history of gallbladder disease or pancreatitis. Denies any history of liver disease. Denies any dark urine, he states it looks like lemonade. 03/14/2023 Patient seen and examined today as a follow-up. He states he has no abdominal pain, no nausea or vomiting. Yesterday he underwent MRCP was no evidence to suggest ductal stricture, choledocholithiasis or biliary ductal dilation. Extrahepatic biliary system within normal limits for size. Acute pancreatitis changes similar to CT findings correlate with serum lipase. Findings suspicious for chronic cholecystitis with gallbladder wall thickening with trace. Cholecystic fluid and multiple gallstones within the gallbladder lumen. High T2 cystic lesions within the pancreatic parenchyma suspicious for pseudocyst versus side branch intraductal papillary mucinous neoplasm. Pancreatic main duct is within normal limits for size. Colonic diverticulosis. Labs also improving. WBC 9.9 hemoglobin 10.1 platelet count 217,000 total bilirubin 1.9 AST 47 ALT 108 alkaline phosphatase 356 lipase 176 Objective - Vital Signs Vital signs: Vital Signs Temp 98.7 F 03/14/23 07:52 Pulse 57 L 03/14/23 09:49 Resp 18 03/14/23 09:49 BP 146/64 03/14/23 07:52 Pulse Ox 100 03/14/23 07:52 FiO2 Intake & Output 08/09/0403/14/23 03/14/23 18:59 06:59 18:59 Intake Total 1000 Balance 1000 Weight 90.718 kg Intake: Intake, IV Titration 1000 Amount Ampicillin-Sulbactam 3 gm 100 In Sodium Chloride 0.9% 100 ml @ 200 mls/hr IVPB Q8HR [facility] Rx#:[id number] Sodium Chloride 0.9% 1, 900 000 ml @ 75 mls/hr IV . [id number] [facility] Rx#:[id number] Other: Voiding Method Toilet Toilet # Voids 1 3 - Exam General appearance: The patient is alert, oriented, appears in no acute distress. HET: Head is normocephalic and atraumatic. Conjunctiva pink. Sclera anicteric. Neck: Supple without lymphadenopathy. Abdomen: Soft, nontender, nondistended with bowel sounds. No guarding or rigidity. Extremities: Normal skin color and turgor. No pedal edema Skin: No rashes, no jaundice Neurological: No focal deficits. Alert and oriented. - Labs CBC & Chem 7: 03/14/23 06:37 03/14/23 06:37 Assessment and Plan (1) Pancreatitis Narrative/Plan: 87-year-old presenting to the emergency department with abdominal pain and constipation. Imaging found to have gallstone pancreatitis, cholecystitis however patient denies any abdominal pain at this time. Denies any previous history of gallbladder issues, denies any previous history of liver disease or pancreatitis. Amylase and lipase elevated consistent with acute pancreatitis. LFTs with possible cholestatic pattern and could be consistent with choledocholithiasis. Discussed with patient and family that labs look consistent with possible biliary obstruction and recommendation would be to consider ERCP. Patient is refusing any procedures at this time as he states he is not in pain. Did discuss alternative of MRCP and patient willing to undergo MRCP imaging Patient with gallstone pancreatitis. MRCP with no evidence of ductal stricture, choledocholithiasis or biliary ductal dilation. Patient likely passed a stone which caused elevation in LFTs. Which are now trending down. Recommend general surgery proceeding with cholecystectomy while inpatient. Current Visit: Yes Status: Acute Code(s): K85.90 - ACUTE PANCREATITIS WITHOUT NECROSIS OR INFECTION, UNSP SNOMED Code(s): 99307188 (2) Cholecystitis Current Visit: Yes Status: Acute Code(s): K81.9 - CHOLECYSTITIS, UNSPECIFIED SNOMED Code(s): 75835487 (3) Abdominal pain Current Visit: Yes Status: Acute Code(s): R10.9 - UNSPECIFIED ABDOMINAL PAIN SNOMED Code(s): 71487986 (4) Constipation Current Visit: Yes Status: Acute Code(s): K59.00 - CONSTIPATION, UNSPECIFIED SNOMED Code(s): 99897480 Plan: 1. Continue symptomatic and supportive care 2. Clear liquid diet, advance as tolerated 3. Daily CMP 4. No indication for ERCP 5. Recommend general surgery proceed with cholecystectomy during this hospitalization for gallbladder pancreatitis 6. No further workup for pancreatic cyst at this time Thank you for this consultation, we will continue to follow. Dr. Daniel Elizalde I agree with the dictator's note, documented as a scribe by Vianney Stephen.
[2023-03-15] MEDS: AMPICILLIN-SULBACTAM 3 GM in SODIUM CHLORIDE 0.9% 100 ML IVPB SCH ×3 (00:15→15:55)
--- NOTE | 2023-03-15 05:53 | P.PN ---
Subjective Progress Note Date: 03/14/23 87-year-old pleasant male came in with complaints of nausea vomiting epigastric severe abdominal pain started about 3 days ago. Patient is found to have an keratitis with highly elevated lipase of 22,500 CT of the abdomen did show pancreatitis acute on chronic. Patient does have gallstones which was at which was evident on ultrasound with the possibility of dilated bile ducts. Patient does have elevated AST and ALT with elevated bilirubin patient's serum creatinine is 1.37 this is close to his baseline. Patient pain improved at this time patient does have leukocytosis doesn't have any fever lipase is coming down. 03/14/2023 Patient is seen and evaluated this morning sitting up in the bed with multiple family members at bedside. Patient being followed by GI along with surgery underwent MRCP with no evidence of obstructed stone likely may have passed as liver functions are trending down. General surgery following as well for possible gallbladder removal and awaiting follow-up from surgeon to discuss possible surgical intervention. Patient reports no abdominal pain denies tenderness and tolerating diet being advanced to full liquids. Patient denies nausea or vomiting and is also having bowel movements. Patient is afebrile. Follow-up labs ordered for a.m. Will discuss further with surgery about treatment plan moving forward. Review of systems: Constitutional: No reports of fatigue, fever, or chills Cardiovascular: No reports of chest pain or palpitations Respiratory: No reports of shortness of breath or cough GI: No reports of nausea, vomiting, or diarrhea, no reports of abdominal pain : No reports of dysuria or retention Neurovascular: No reports of weakness or numbness All medications have been reviewed PHYSICAL EXAMINATION: GENERAL: The patient is alert and oriented x3, not in any acute distress. Well developed, well nourished. HEENT: Pupils are round and equally reacting to light. EOMI. No scleral icterus. No conjunctival pallor. Normocephalic, atraumatic. No pharyngeal erythema. No thyromegaly. CARDIOVASCULAR: S1 and S2 present. No murmurs, rubs, or gallops. PULMONARY: Chest is clear to auscultation, no wheezing or crackles. ABDOMEN: Soft, nontender on palpation, nondistended, normoactive bowel sounds. No palpable organomegaly. MUSCULOSKELETAL: No joint swelling or deformity. EXTREMITIES: No cyanosis, clubbing, or pedal edema. NEUROLOGICAL: Gross neurological examination did not reveal any focal deficits. SKIN: No rashes. Assessment: -gallstone pancreatiti, MRCP was negative for obstructive stone likely may have passed -Elevated LFTs, secondary to above -Cholecystitis -Chronic kidney disease stage III: Probably nephrosclerosis and age-related. -Leukocytosis secondary to pancreatitis -Transaminitis secondary to gallstone, improving trending down -DVT prophylaxis: Subcutaneous heparin -GI prophylaxis -full code Plan: Patient will be continued on clear liquids and advance to full liquids with GI and general surgery following Patient underwent MRCP which showed no evidence of ductal stricture, choledocholithiasis or biliary ductal dilation, likely may have passed stone and GI recommending inpatient gallbladder removal General surgery following as well and will discuss further planning for gallbladder removal or outpatient. Advanced diet as tolerated and monitor for any further abdominal pain Will discuss further with surgery about treatment plan moving forward with possible discharge in the next week 4 hours The impression and plan of care has been dictated by Jewell Gamboa, Nurse Practitioner as directed. Dr. Lenard MD I have performed a history and examination and MDM of this patient, discussed the same with the dictator, and agree with the dictator's assessment and plan as written ,documented as a scribe. Based on total visit time, I have performed more than 50% of the visit. Objective - Vital Signs Vital signs: Vital Signs Temp 98.7 F 03/14/23 07:52 Pulse 57 L 03/14/23 09:49 Resp 18 03/14/23 09:49 BP 146/64 03/14/23 07:52 Pulse Ox 100 03/14/23 07:52 FiO2 Intake & Output 03/13/23 03/14/23 03/14/23 18:59 06:59 18:59 Intake Total 1000 Balance 1000 Weight 90.718 kg Intake: Intake, IV Titration 1000 Amount Ampicillin-Sulbactam 3 gm 100 In Sodium Chloride 0.9% 100 ml @ 200 mls/hr IVPB Q8HR [facility] Rx#:[id number] Sodium Chloride 0.9% 1, 900 000 ml @ 75 mls/hr IV . [id number] [facility] Rx#:[id number] Other: Voiding Method Toilet Toilet # Voids 1 3 - Labs CBC & Chem 7: 03/14/23 06:37 03/14/23 06:37 Labs: Abnormal Lab Results - Last 24 Hours (Table) 03/13/23 Range/Units 10:01 Chloride 109 H (98-107) mmol/L BUN 27 H (9-20) mg/dL Creatinine 1.37 H (0.66-1.25) mg/dL Glucose 103 H (74-99) mg/dL Calcium 8.0 L (8.4-10.2) mg/dL Total Bilirubin 3.0 H (0.2-1.3) mg/dL AST 86 H (17-59) U/L ALT 158 H (4-49) U/L Alkaline Phosphatase 366 H (38-126) U/L Albumin 3.0 L (3.5-5.0) g/dL Lipase 1413 H (23-300) U/L
[2023-03-15] MEDS: CHOLECALCIFEROL 25 MCG (1000 IU) TABLET PO SCH (08:15)
[2023-03-15] MEDS: PANTOPRAZOLE 40 MG/10 ML VIAL IV SCH (08:15)
[2023-03-15] MEDS: ASCORBIC ACID 500 MG TAB PO SCH (08:15)
[2023-03-15] MEDS: HEPARIN SODIUM,PORCINE/PF 5,000 UNIT/0.5 ML SYRINGE SQ SCH (08:15)
[2023-03-15] MEDS: allopurinoL 100 MG TAB PO SCH (08:15)
--- NOTE | 2023-03-15 12:10 | P.PN ---
Subjective Progress Note Date: 03/15/23 CHIEF COMPLAINT: Gallstone pancreatitis HISTORY OF PRESENT ILLNESS: Patient continues to have no abdominal pain. He did tolerate a full liquid diet. He denies any nausea or vomiting. Afebrile. CMP for today pending PHYSICAL EXAM: VITAL SIGNS: Reviewed. GENERAL: Well-developed in no acute distress. ABDOMEN: Soft. Nondistended. Nontender. NEUROLOGIC: Alert and oriented. Cranial nerves II through XII grossly intact. ASSESSMENT: 1. Gallstone pancreatitis 2. Cholecystitis 3. Constipation PLAN: -Advance diet to low-fat -Patient can be discharged from surgical standpoint -Recommend outpatient laparoscopic cholecystectomy Physician Sailing Instructor note has been reviewed by physician. Signing provider agrees with the documented findings, assessment, and plan of care. I have personally seen and examined the patient, reviewed the CONCAVER /PAs history, exam and MDM and agree with the assessment and plan as written. Based on total visit time, I have performed more than 50% of the visit. As above: Patient doing well today. No pain. Majority of liver enzymes improved. Patient would like to go home. May discharge. We'll schedule for outpatient laparoscopic, possible open cholecystectomy on 03/27. Objective - Vital Signs Vital signs: Vital Signs Temp 97.5 F L 03/15/23 07:12 Pulse 77 03/15/23 07:12 Resp 15 03/15/23 07:12 BP 164/70 03/15/23 07:12 Pulse Ox 98 03/15/23 07:12 FiO2 Intake & Output 03/14/23 03/15/23 03/15/23 18:59 06:59 18:59 Other: Voiding Method Toilet Toilet # Voids 2 2 # Bowel Movements 2 - Labs CBC & Chem 7: 03/14/23 06:37 03/15/23 06:06 Labs: Abnormal Lab Results - Last 24 Hours (Table) 03/14/23 Range/Units 06:37 Est GFR (CKD-EPI) 45 L (>=60) Calcium 7.9 L (8.7-10.3) mg/dL Total Bilirubin 1.9 H (0.3-1.2) mg/dL AST 47 H (14-35) U/L ALT 108 H (10-49) U/L Alkaline Phosphatase 356 H (41-126) U/L Total Protein 5.2 L (6.2-8.2) d/dL Albumin 2.8 L (3.8-4.9) d/dL Albumin/Globulin Ratio 1.17 L (1.60-3.17) Ratio Lipase 176 H (14-60) U/L
--- NOTE | 2023-03-15 13:01 | P.PN ---
Subjective Progress Note Date: 03/15/23 Principal diagnosis: Gallstone pancreatitis This is a pleasant 87-year-old male with no past medical history reported. Who came into the emergency department with complaints of mid to lower abdominal pain with constipation for last 4 days duration. Patient states that he was recently on a family trip to [place] and he within the house and did not walk much, he states he did not eat his normal foods and he became constipated. He has since had 3 bowel movements since he came to the emergency department. He states he has no abdominal pain at this time. He denies any previous history of chronic constipation or significant abdominal pain. He had a CT of the abdomen and pelvis concerning for acute cholecystitis, acute pancreatitis and cystitis. He also had a ultrasound of the gallbladder showing concerns for gallbladder wall thickening as well as gallstones. Admitting labs WBC 13.4 hemoglobin 11.8 hematocrit 35 platelet count 243 sodium 136 potassium 4.4 BUN 31 creatinine 1.65 total bilirubin 3.1 AST 116 ALT 186 alkaline phosphatase 403 amylase 202 lipase 2255. Patient denies any previous history of gallbladder disease or pancreatitis. Denies any history of liver disease. Denies any dark urine, he states it looks like lemonade. 03/14/2023 Patient seen and examined today as a follow-up. He states he has no abdominal pain, no nausea or vomiting. Yesterday he underwent MRCP was no evidence to suggest ductal stricture, choledocholithiasis or biliary ductal dilation. Extrahepatic biliary system within normal limits for size. Acute pancreatitis changes similar to CT findings correlate with serum lipase. Findings suspicious for chronic cholecystitis with gallbladder wall thickening with trace. Cholecystic fluid and multiple gallstones within the gallbladder lumen. High T2 cystic lesions within the pancreatic parenchyma suspicious for pseudocyst versus side branch intraductal papillary mucinous neoplasm. Pancreatic main duct is within normal limits for size. Colonic diverticulosis. Labs also improving. WBC 9.9 hemoglobin 10.1 platelet count 217,000 total bilirubin 1.9 AST 47 ALT 108 alkaline phosphatase 356 lipase 176 03/15/2023 Patient seen and examined today as follow-up for gallstone pancreatitis. He continues to have no abdominal pain, no nausea or vomiting. Gen. surgery is following. Current labs today are pending. Objective - Vital Signs Vital signs: Vital Signs Temp 97.5 F L 03/15/23 07:12 Pulse 77 03/15/23 07:12 Resp 15 08/03/23 07:12 BP 164/70 03/15/23 07:12 Pulse Ox 98 03/15/23 07:12 FiO2 Intake & Output 03/14/23 03/15/23 03/15/23 18:59 06:59 18:59 Other: Voiding Method Toilet Toilet # Voids 2 2 # Bowel Movements 2 - Exam General appearance: The patient is alert, oriented, appears in no acute distress. HET: Head is normocephalic and atraumatic. Conjunctiva pink. Sclera anicteric. Neck: Supple without lymphadenopathy. Abdomen: Soft, nontender, nondistended with bowel sounds. No guarding or rigidity. Extremities: Normal skin color and turgor. No pedal edema Skin: No rashes, no jaundice Neurological: No focal deficits. Alert and oriented. - Labs CBC & Chem 7: 03/14/23 06:37 03/14/23 06:37 Labs: Abnormal Lab Results - Last 24 Hours (Table) 03/14/23 03/14/23 Range/Units 06:37 06:37 RBC 3.62 L (4.40-5.60) X 10*6/uL Hgb 10.1 L (13.0-17.0) d/dL Hct 32.3 L (39.6-50.0) % MCHC 31.3 L (32.0-37.0) d/dL Neutrophils # 8.09 H (1.80-7.70) X 10*3/uL Lymphocytes # 0.64 L (0.90-5.00) X 10*3/uL Est GFR (CKD-EPI) 45 L (>=60) Calcium 7.9 L (8.7-10.3) mg/dL Total Bilirubin 1.9 H (0.3-1.2) mg/dL AST 47 H (14-35) U/L ALT 108 H (10-49) U/L Alkaline Phosphatase 356 H (41-126) U/L Total Protein 5.2 L (6.2-8.2) d/dL Albumin 2.8 L (3.8-4.9) d/dL Albumin/Globulin Ratio 1.17 L (1.60-3.17) Ratio Lipase 176 H (14-60) U/L Assessment and Plan (1) Pancreatitis Narrative/Plan: 87-year-old presenting to the emergency department with abdominal pain and constipation. Imaging found to have gallstone pancreatitis, cholecystitis however patient denies any abdominal pain at this time. Denies any previous history of gallbladder issues, denies any previous history of liver disease or pancreatitis. Amylase and lipase elevated consistent with acute pancreatitis. LFTs with possible cholestatic pattern and could be consistent with choledocholithiasis. Discussed with patient and family that labs look consistent with possible biliary obstruction and recommendation would be to consider ERCP. Patient is refusing any procedures at this time as he states he is not in pain. Did discuss alternative of MRCP and patient willing to undergo MRCP imaging Patient with gallstone pancreatitis. MRCP with no evidence of ductal stricture, choledocholithiasis or biliary ductal dilation. Patient likely passed a stone which caused elevation in LFTs. Which are now trending down. Recommend general surgery proceeding with cholecystectomy while inpatient. Current Visit: Yes Status: Acute Code(s): K85.90 - ACUTE PANCREATITIS WITHOUT NECROSIS OR INFECTION, UNSP SNOMED Code(s): 26053590 (2) Cholecystitis Current Visit: Yes Status: Acute Code(s): K81.9 - CHOLECYSTITIS, UNSPECIFIED SNOMED Code(s): 89547282 (3) Abdominal pain Current Visit: Yes Status: Acute Code(s): R10.9 - UNSPECIFIED ABDOMINAL PAIN SNOMED Code(s): 41396504 (4) Constipation Current Visit: Yes Status: Acute Code(s): K59.00 - CONSTIPATION, UNSPECIFIED SNOMED Code(s): 47138596 Plan: 1. Continue symptomatic and supportive care 2. Diet per recommendations from general surgery 3. No indication for ERCP 4. Recommend general surgery proceed with cholecystectomy during this hospitalization for gallbladder pancreatitis 5. No further workup for pancreatic cyst at this time Thank you for this consultation, we will sign off at this time. Dr. Daniel Elizalde I agree with the dictator's note, documented as a scribe by Vianney Stephen.
[2023-03-15 14:25] LABS: ALT 87 U/L (10-49); AST 46 U/L (14-35); Albumin 2.9 d/dL (3.8-4.9); Albumin/Globulin Ratio 1.21 Ratio (1.60-3.17); Alkaline Phosphatase 404 U/L (41-126); Calcium 7.9 mg/dL (8.7-10.3); Carbon Dioxide 18.1 mmol/L (21.6-31.8); Chloride 111 mmol/L (96-109); Globulin 2.4 d/dL (1.6-3.3); Glucose 93 mg/dL (70-110); Potassium 4.3 mmol/L (3.5-5.5); Sodium 140 mmol/L (135-145); Total Bilirubin 1.2 mg/dL (0.3-1.2); Total Protein 5.3 d/dL (6.2-8.2)
[2023-03-15] MEDS: SODIUM CHLORIDE 0.9% 1,000 ML IV SCH (15:22)
[2023-03-15 15:31] VITALS: BP 161/67; PULSE 53; RESP 17; TEMP 98.4
[2023-03-15] MEDS ORDERED: HEPARIN SODIUM,PORCINE 5,000 UNIT/ML 1 ML VIAL SQ SCH (21:00)
--- NOTE | 2023-03-19 06:21 | P.DS ---
Providers Date of admission: 03/13/23 06:32 Expected date of discharge: 03/15/23 Attending physician: Isaiah Samuels Consults: 03/13/23 06:32 Consult Physician Routine Consulting Provider: Carson Osorio Consult Reason/Comments: blanca Do you want consulting provider notified?: Yes Consult Physician Routine Consulting Provider: Shyann Elizalde Consult Reason/Comments: pancreatitis Do you want consulting provider notified?: Yes Primary care physician: Vikram Carver Hospital Course: Final diagnosis -gallstone pancreatiti, MRCP was negative for obstructive stone likely may have passed -Elevated LFTs, secondary to above -Cholecystitis -Chronic kidney disease stage III: Probably nephrosclerosis and age-related. -Leukocytosis secondary to pancreatitis -Transaminitis secondary to gallstone, improving trending down -DVT prophylaxis -GI prophylaxis -full code Discharge disposition Patient is being discharged in a stable condition with guarded prognosis to home. Patient will follow-up with Dr. Carver in the outpatient setting upon discharge. Patient is to follow up with Dr. osorio outpatient for gallbladder removal next week as scheduled. Total time taken is greater than 35 minutes. Hospital course This is a 87-year-old male who was recently admitted with abdominal pain and found to have gallstones concerns of gallstone pancreatitis. MRCP was ordered by GI and was negative for obstruction likely passing the stone. Patient's LFTs are trending down and patient is reporting no further abdominal pain and tolerating diet. Lengthy discussion was had with surgery and family and gallbladder will be removed in the outpatient setting. Surgery prefers full liquid to soft diet until follow-up in one week for outpatient gallbladder removal. Please refer to consultation notes for further HPI. Currently no reports of chest pain, shortness of breath, or palpitations. Patient is afebrile. No reports of nausea or vomiting and patient is tolerating diet. P atient will be discharged home today. Guarded prognosis. Physical exam: Gen: This is a 87-year-old male who is awake, alert and oriented 3, well- developed, well-nourished HEENT: Head is atraumatic, normocephalic. Pupils equal, round. Sclerae is anicteric. NECK: Supple. No JVD. No lymphadenopathy. No thyromegaly. LUNGS: Clear to auscultation. No wheezes or rhonchi. No intercostal retraction s. HEART: Regular rate and rhythm. No murmur. ABDOMEN: Soft. Obese. Bowel sounds are present. No masses. No tenderness. EXTREMITIES: No pedal edema. No calf tenderness. NEUROLOGICAL: Patient is awake, alert and oriented x3. Cranial nerves 2 through 12 are grossly intact. Please refer to medication reconciliation sheet for a list of medications. The impression and plan of care has been dictated by Jewell Gamboa, Nurse Practitioner as directed. Dr. Lenard MD I have performed a history and examination and MDM of this patient, discussed the same with the dictator, and agree with the dictator's assessment and plan as written ,documented as a scribe. Based on total visit time, I have performed more than 50% of the visit. Patient Condition at Discharge: Fair Plan - Discharge Summary Discharge Rx Participant: No New Discharge Prescriptions: New Pantoprazole [Protonix] 40 mg PO DAILY 15 Days #15 tab Continue Cholecalciferol [Vitamin D3 (25 Mcg = 1000 Iu)] 25 mcg PO DAILY Ascorbic Acid [Vitamin C] 500 mg PO DAILY allopurinoL 200 mg PO DAILY Fluticasone Propionate 2 spray PO DAILY Discharge Medication List Ascorbic Acid [Vitamin C] 500 mg PO DAILY 10/09/20 [History] Cholecalciferol [Vitamin D3 (25 Mcg = 1000 Iu)] 25 mcg PO DAILY 10/09/20 [History] Fluticasone Propionate 2 spray PO DAILY 03/13/23 [History] allopurinoL 200 mg PO DAILY 03/13/23 [History] Pantoprazole [Protonix] 40 mg PO DAILY 15 Days #15 tab 03/15/23 [Rx] Follow up Appointment(s)/Referral(s): Carson Osorio MD [Medical Doctor] - 1 Week (Office is closed at time of discharge. Please call for appointment.) Vikram Carver MD [Primary Care Provider] - 1-2 days (Office closed at time of discharge. Please call for follow-up appointment.) Ambulatory/Diagnostic Orders: Comprehensive Metabolic Panel [LAB.AMB] Time Frame: 1 Week, Location: None Selected Patient Instructions/Handouts: Pantoprazole (By mouth), Pancreatitis (DC) Activity/Diet/Wound Care/Special Instructions: Activity Limited until follow-up Follow-up with primary care provider on discharge Follow-up with general surgery in the next 1 week with plans for outpatient cholecystectomy possibly open per Dr. Osorio Continue low-fat diet until follow-up Recommend repeat labs in the next 1 week to monitor liver function testing along with electrolytes and kidney functions Discharge Disposition: HOME SELF-CARE
== END 2023-03-15 18:00 | disposition home or self-care (01) | DRG 444 ==
LOC: EC 00:38 → 4SSUR 06:32
PROVIDERS: ADMIT Hospitalist; ATTEND Hospitalist
DX: K80.00 Calculus of gallbladder with acute cholecystitis without obstruction (principal); K85.10 Biliary acute pancreatitis without necrosis or infection; K86.1 Other chronic pancreatitis; K57.30 Diverticulosis of large intestine without perforation or abscess without bleeding; K83.8 Other specified diseases of biliary tract; I12.9 Hypertensive chronic kidney disease with stage 1 through stage 4 chronic kidney disease, or unspecified chronic kidney disease; K59.00 Constipation, unspecified; E86.1 Hypovolemia; N18.30 Chronic kidney disease, stage 3 unspecified; D72.829 Elevated white blood cell count, unspecified; R74.01 Elevation of levels of liver transaminase levels; H16.9 Unspecified keratitis; Z79.899 Other long term (current) drug therapy
CPT/HCPCS: 36415; 74018; 74176; 74181; 76705; 80053; 82150; 83690; 85025; 85610; 96361; 96365; 96375; 99291

== ENCOUNTER 2023-03-27 13:59 | Inpatient (IN) | payer MEDICARE, BC ==
[2023-03-19 16:13] VITALS: BMI 25.7
[~2023-03-27 13:59] MED LIST: ACETAMINOPHEN TAB 500 MG TAB ONE; DEXAMETHASONE SOD PHOSPHATE 4 MG/ML 1 ML VIAL IV ONE; HEPARIN SODIUM,PORCINE/PF 5,000 UNIT/0.5 ML SYRINGE SQ ONE; HYDROmorphone 0.5 MG/0.5 ML SYRINGE IVP PRN; LIDOCAINE 1% (10MG/ML) FOR IV START INTRADERMA PRN; MIDAZOLAM 2 MG/2 ML VIAL IV PRN; ONDANSETRON 4 MG/2 ML VIAL IVP ONE; ONDANSETRON 4 MG/2 ML VIAL ONE
--- NOTE | 2023-03-27 14:20 | P.GSHP ---
History of Present Illness H&P Date: 03/27/23 Chief Complaint: Gallstone pancreatitis 87-year-old male hospitalized earlier this month with acute pancreatitis. Patient had elevated liver enzymes and was jaundiced. Workup included CAT scan, ultrasound, MRCP. Studies show gallstones with pancreatic inflammation. No co mmon bile duct stone seen. Since discharge patient says the dark urine and yellow skin have completely resolved. It was improving while he was hospitalized. Today's labs are pending. Past Medical History Past Medical History: No Reported History Additional Past Medical History / Comment(s): gout History of Any Multi-Drug Resistant Organisms: None Reported Additional Past Surgical History / Comment(s): eye surgery Past Anesthesia/Blood Transfusion Reactions: No Reported Reaction Past Psychological History: No Psychological Hx Reported Smoking Status: Never smoker Past Alcohol Use History: None Reported Past Drug Use History: None Reported - Past Family History Mother Family Medical History: No Reported History Medications and Allergies Home Medications Medication Instructions Recorded Confirmed Type Ascorbic Acid [Vitamin C] 500 mg PO DAILY 10/09/20 03/19/23 History Cholecalciferol [Vitamin D3 (25 25 mcg PO DAILY 10/09/20 03/19/23 History Mcg = 1000 Iu)] Fluticasone Propionate 2 spray PO DAILY 03/13/23 03/19/23 History allopurinoL 200 mg PO DAILY 03/13/23 03/19/23 History Pantoprazole [Protonix] 40 mg PO DAILY 15 Days #15 tab 03/15/23 03/19/23 Rx Allergies Allergy/AdvReac Type Severity Reaction Status Date / Time No Known Allergies Allergy Verified 03/27/23 14:09 Surgical - Exam Vital Signs Temp Pulse Resp BP Pulse Ox 97.5 F L 79 16 181/79 97 03/27/23 14:11 03/27/23 14:11 03/27/23 14:11 03/27/23 14:11 03/27/23 14:11 Physical exam: General: Well-developed, well-nourished HEENT: Normocephalic, sclerae nonicteric Abdomen: Nontender, nondistended Extremities: No edema Neuro: Alert and oriented Assessment and Plan (1) Gallstone pancreatitis Narrative/Plan: Will proceed with laparoscopic, possible open cholecystectomy today. Check preoperative blood work. Risks of bleeding, infection, bile leak, bile duct injury, retained common bile duct stone, trocar injury, conversion to an open procedure, hernia, anesthesia related complications were reviewed. The patient understands and wishes to proceed. Current Visit: No Status: Acute Code(s): K85.10 - BILIARY ACUTE PANCREATITIS WITHOUT NECROSIS OR INFECTION SNOMED Code(s): 24705262
[2023-03-27] MEDS: LACTATED RINGERS 1,000 ML IV SCH (14:29)
[2023-03-27] MEDS ORDERED: ACETAMINOPHEN TAB 500 MG TAB PO ONE (14:32)
[2023-03-27] MEDS ORDERED: KETOROLAC 15 MG/ML 1 ML VIAL ONE (14:40)
[2023-03-27] MEDS ORDERED: fentaNYL (PF) 50 MCG/ML 2 ML AMP ONE (14:40)
[2023-03-27] MEDS ORDERED: LIDOCAINE 4% LTA KIT (4 ML) TOPICAL ONE (14:40)
[2023-03-27] MEDS ORDERED: LABETALOL 5 MG/ML VIAL MDV ONE (14:40)
[2023-03-27] MEDS ORDERED: ROCURONIUM 10 MG/ML (5 ML VIAL) IV ONE (14:40)
[2023-03-27] MEDS ORDERED: PROPOFOL 10 MG/ML 20 ML VIAL IV ONE (14:40)
[2023-03-27] MEDS ORDERED: NEOSTIGMINE 1 MG/ML 10 ML VIAL ONE (14:40)
[2023-03-27] MEDS ORDERED: LIDOCAINE 2% INJ 20 MG/ML (2 ML VIAL) ONE (14:40)
[2023-03-27] MEDS ORDERED: ePHEDrine 50 MG/ML 1 ML VIAL ONE (14:40)
[2023-03-27] MEDS ORDERED: GLYCOPYRROLATE 0.2 MG/ML 2 ML VIAL ONE (14:40)
[2023-03-27] MEDS ORDERED: SUCCINYLCHOLINE CHLORIDE 200 MG/10 ML VIAL IV ONE (14:40)
[2023-03-27] MEDS ORDERED: HYDROmorphone (PF) 1 MG/ML ONE (14:40)
[2023-03-27 14:50] LABS: Potassium 4.3 mmol/L (3.5-5.1)
[2023-03-27 14:51] LABS: ALT 34 U/L (4-49); AST 33 U/L (17-59); African American GFR (CKD) 42 (>60 ml/min/1.73 sqM); Albumin 4.1 g/dL (3.5-5.0); Alkaline Phosphatase 243 U/L (38-126); Anion Gap 11 mmol/L; Blood Urea Nitrogen 33 mg/dL (9-20); Calcium 9.1 mg/dL (8.4-10.2); Carbon Dioxide 23 mmol/L (22-30); Chloride 108 mmol/L (98-107); Glucose 105 mg/dL (74-99); Lipase 476 U/L (23-300); Non-African American GFR(CKD) 36 (>60 ml/min/1.73 sqM); Sodium 142 mmol/L (137-145); Total Bilirubin 0.8 mg/dL (0.2-1.3); Total Protein 7.9 g/dL (6.3-8.2)
[2023-03-27 14:58] LABS: Basophils % (A) 1 %; Eosinophils # (A) 0.3 k/uL (0-0.7); Eosinophils % (A) 4 %; HCT 38.3 % (39.0-53.0); HGB 12.6 gm/dL (13.0-17.5); Lymphocytes # (A) 1.1 k/uL (1.0-4.8); Lymphocytes % (A) 15 %; MCH 28.8 pg (25.0-35.0); MCHC 32.9 g/dL (31.0-37.0); MCV 87.7 fL (80.0-100.0); Mean Platelet Volume 7.2; Monocytes # (A) 0.6 k/uL (0-1.0); Monocytes % (A) 8 %; Neutrophils # (A) 5.5 k/uL (1.3-7.7); Neutrophils % (A) 71 %; Platelet Count 492 k/uL (150-450); RBC 4.37 m/uL (4.30-5.90); WBC 7.8 k/uL (3.8-10.6)
[2023-03-27] MEDS ORDERED: BUPIVACAINE (PF) 0.25% 10 ML VIAL SQ ONE (15:10)
[2023-03-27] MEDS ORDERED: LACTATED RINGERS 1,000 ML IV ONE ×2 (16:06)
[2023-03-27] MEDS ORDERED: NALOXONE 0.4 MG/ML 1 ML VIAL IV PRN (16:54)
[2023-03-27] MEDS ORDERED: HYDROmorphone 1 MG/ML 1 ML SYRINGE IVP PRN (16:54)
[2023-03-27] MEDS ORDERED: ONDANSETRON 4 MG/2 ML VIAL IVP PRN (16:54)
[2023-03-27] MEDS ORDERED: HYDROmorphone 0.5 MG/0.5 ML SYRINGE IVP PRN (16:54)
[2023-03-27] MEDS ORDERED: traMADol 50 MG TAB PO PRN (16:54)
--- NOTE | 2023-03-27 16:54 | P.OP ---
Date of Procedure: 03/27/23 Procedure(s) Performed: PREOPERATIVE DIAGNOSIS: Gallstone pancreatitis POSTOPERATIVE DIAGNOSIS: Same PROCEDURE: Laparoscopic cholecystectomy SURGEON: Devon EBL: 50 mL ANESTHESIA: Gen. COMPLICATIONS: None OPERATIVE PROCEDURE: The patient was brought and placed on the operating room table in the supine position. The patient was placed under general anesthesia at that time. The abdomen was prepped and draped in the usual sterile fashion. A small vertical infraumbilical incision was made. The fascia was grasped with the Darrick forceps. The fascia was retracted anteriorly. The Veress needle was advanced into the peritoneal cavity. The saline drop test was normal. Insufflation took place up to 15 mmHg. A 5 mm optical trocar was advanced and the peritoneal cavity. 2 additional 5 mm trochars were placed in the right upper quadrant under direct visualization. A 12 mm trocar was advanced into the epigastric incision site. The gallbladder was chronically inflamed. It was significantly distended with a thickened wall. Blunt dissection revealed the infundibulum. The infundibulum was carefully dissected using blunt dissection. I was able to visualize the cystic artery quite well with the adjacent cystic artery lymph node. This was clipped on specimen side and patient's side and then divided. The patient's cystic duct at the base of the infundibulum was quite thick. Initially this was ligated using a 2-0 Ethibond stitch and a tie knot. Despite that I was not convinced we had a good secure ligation of the cystic duct. At that time given the size and induration associated with the base of the infundibulum I decided to divide the cystic duct using a linear 45 mm white load stapler. This worked nicely. No evidence of bile leak was seen. The gallbladder was then removed from the liver bed using electrocautery. Small vessels entering the posterior wall the gallbladder were clipped. The gallbladder was quite large and in order to remove the peritoneal cavity required significant lengthening of the fascial incision and skin incision. Once the gallbladder was removed a drain was placed in the gallbladder fossa. This exited from the lateral 5 mm trocar site and stitched in place using a silk stitch. The gallbladder fossa was irrigated with saline. There was no evidence of any bleeding or biliary drainage seen. The fascia at the 12 millimeter site was closed using a running 0 Vicryl stitch. The trochars were then removed. The skin at all 3 sites was closed using a 4-0 Monocryl stitch. Skin glue was utilized on the incision sites. At the end of this procedure the sponge and needle counts were correct. DISPOSITION: Stable to the recovery room
[2023-03-27] MEDS ORDERED: hydrALAZINE HCL 20 MG/ML 1 ML VIAL IVP ONE (18:01)
[2023-03-27] MEDS ORDERED: GLYCOPYRROLATE 0.2 MG/ML 2 ML VIAL IVP ONE (18:47)
[2023-03-27] MEDS: HEPARIN SODIUM,PORCINE 5,000 UNIT/ML 1 ML VIAL SQ SCH (23:13)
[2023-03-27] MEDS: FAMOTIDINE 20 MG TAB PO SCH (23:14)
[2023-03-28] MEDS: ACETAMINOPHEN TAB 325 MG TAB PO PRN (05:27)
[2023-03-28 08:39] LABS: Glucose,Whole Blood 237 mg/dL (70-110)
[2023-03-28 09:28] LABS: ALT 35 U/L (10-49); AST 36 U/L (14-35); Albumin 3.2 d/dL (3.8-4.9); Albumin/Globulin Ratio 1.19 Ratio (1.60-3.17); Alkaline Phosphatase 184 U/L (41-126); BUN/Creat Ratio 17.46 Ratio (12.00-20.00); Blood Urea Nitrogen 41.9 mg/dL (9.0-27.0); Calcium 9.1 mg/dL (8.7-10.3); Carbon Dioxide 18.5 mmol/L (21.6-31.8); Chloride 108 mmol/L (96-109); Globulin 2.7 d/dL (1.6-3.3); Glucose 173 mg/dL (70-110); Potassium 5.8 mmol/L (3.5-5.5); Sodium 141 mmol/L (135-145); Total Bilirubin 0.4 mg/dL (0.3-1.2); Total Protein 5.9 d/dL (6.2-8.2)
[2023-03-28] MEDS ORDERED: ALBUTEROL NEB (CONC) 2.5 MG/0.5 ML INHALATION ONE (10:09)
[2023-03-28] MEDS ORDERED: DEXTROSE 50% SYRINGE 50 ML IVP ONE (10:09)
[2023-03-28] MEDS ORDERED: INSULIN REGULAR 100 UNIT/ML VIAL (IV) IV ONE (10:09)
[2023-03-28 11:19] LABS: Glucose,Whole Blood 193 mg/dL (70-110)
--- NOTE | 2023-03-28 13:11 | P.CONS ---
History of Present Illness - Reason for Consult Consult date: 03/28/23 Medical management - History of Present Illness History of present illness; 87-year-old gentleman who presented to the hospital for elective lap cholecystectomy. Patient was seen earlier this month for acute pancreatitis, found to be gallstone pancreatitis, patient had elevated LFTs, patient was later discharged and was following up outpatient with general surgery, patient LFTs normalized. Patient was scheduled for elective cholecystectomy on 03/27, postoperatively medical team were consulted for medical management REVIEW OF SYSTEMS: CONSTITUTIONAL: No fever, no malaise, no fatigue. HEENT: No recent visual problems or hearing problems. Denied any sore throat. CARDIOVASCULAR: No chest pain, orthopnea, PND, no palpitations, no syncope. PULMONARY: No shortness of breath, no cough, no hemoptysis. GASTROINTESTINAL: No diarrhea, no nausea, no vomiting, abdominal pain at the site of surgery NEUROLOGICAL: No headaches, no weakness, no numbness. HEMATOLOGICAL: Denies any bleeding or petechiae. GENITOURINARY: Denies any burning micturition, frequency, or urgency. MUSCULOSKELETAL/RHEUMATOLOGICAL: Denies any joint pain, swelling, or any muscle pain. ENDOCRINE: Denies any polyuria or polydipsia. The rest of the 14-point review of systems is negative. PHYSICAL EXAMINATION: GENERAL: The patient is alert and oriented x3, not in any acute distress. Well developed, well nourished. HEENT: Pupils are round and equally reacting to light. EOMI. No scleral icterus. No conjunctival pallor. Normocephalic, atraumatic. No pharyngeal erythema. No thyromegaly. CARDIOVASCULAR: S1 and S2 present. No murmurs, rubs, or gallops. PULMONARY: Chest is clear to auscultation, no wheezing or crackles. ABDOMEN: Soft, nontender, nondistended, laparoscopic surgical incision seen, drain in place MUSCULOSKELETAL: No joint swelling or deformity. EXTREMITIES: No cyanosis, clubbing, or pedal edema. NEUROLOGICAL: Gross neurological examination did not reveal any focal deficits. SKIN: No rashes. Assessment and plan Cholelithiasis, status post laparoscopic cholecystectomy Hyperkalemia Acute kidney injury Monitor vital signs Monitor CBC Monitor CMP Strict I's and O's Daily weights Continue IV fluids Hyperkalemia protocol initiated Ordered ultrasound of kidneys Avoid nephrotoxic agents Consult PT and OT Continue pain management per Surgery Continue drain management per surgery Continue DVT prophylaxis per surgery Labs and medication were reviewed.. Continue same treatment. Continue with symptomatic treatment. Resume home medication. Monitor labs and vitals. DVT and GI prophylaxis. Further recommendations as per clinical course of the patient Dictation was produced using [employer] dictation software. please excuse any grammatical, word or spelling errors. Past Medical History Past Medical History: No Reported History Additional Past Medical History / Comment(s): gout History of Any Multi-Drug Resistant Organisms: None Reported Additional Past Surgical History / Comment(s): eye surgery Past Anesthesia/Blood Transfusion Reactions: No Reported Reaction Past Psychological History: No Psychological Hx Reported Smoking Status: Never smoker Past Alcohol Use History: None Reported Past Drug Use History: None Reported - Past Family History Mother Family Medical History: No Reported History Medications and Allergies Home Medications Medication Instructions Recorded Confirmed Type Ascorbic Acid [Vitamin C] 500 mg PO DAILY 10/09/20 03/19/23 History Cholecalciferol [Vitamin D3 (25 25 mcg PO DAILY 10/09/20 03/19/23 History Mcg = 1000 Iu)] Fluticasone Propionate 2 spray PO DAILY 03/13/23 03/19/23 History allopurinoL 200 mg PO DAILY 03/13/23 03/19/23 History Pantoprazole [Protonix] 40 mg PO DAILY 15 Days #15 tab 03/15/23 03/19/23 Rx Allergies Allergy/AdvReac Type Severity Reaction Status Date / Time No Known Allergies Allergy Verified 03/27/23 14:09 Physical Exam Vitals: Vital Signs Temp Pulse Resp BP Pulse Ox FiO2 03/28/23 02:00 97.5 F L 65 17 103/62 98 03/27/23 20:55 43 L 98/60 97 03/27/23 20:40 42 L 93/54 98 03/27/23 20:25 49 L 124/68 95 03/27/23 20:10 44 L 114/66 96 03/27/23 19:55 43 L 123/76 97 03/27/23 19:40 49 L 127/66 95 03/27/23 19:30 97.7 F 56 L 133/70 96 03/27/23 19:15 56 L 14 130/60 100 2 03/27/23 19:00 57 L 14 138/63 99 2 03/27/23 18:49 45 L 14 142/63 99 2 03/27/23 18:30 46 L 14 135/63 99 03/27/23 18:15 53 L 14 143/65 99 2 03/27/23 18:00 44 L 14 153/66 99 2 03/27/23 17:45 53 L 14 150/65 99 2 03/27/23 17:30 48 L 14 147/66 99 2 03/27/23 17:15 55 L 14 150/67 100 03/27/23 17:06 53 L 12 155/67 100 03/27/23 16:51 97.5 F L 63 12 163/70 99 03/27/23 14:11 97.5 F L 79 16 181/79 97 Intake and Output 03/27/23 03/28/23 03/28/23 22:59 06:59 14:59 Intake Total 300 240 Output Total 50 480 Balance 250 -240 Intake: IV 300 Oral 240 Output: Drainage 130 Right Abdomen 130 Urine 350 Estimated Blood Loss 50 Other: Weight 85.3 kg Results CBC & Chem 7: 03/27/23 14:23 03/28/23 05:20 Labs: Abnormal Lab Results - Last 24 Hours (Table) 03/27/23 03/27/23 03/28/23 Range/Units 14:23 14:23 05:20 Hgb 12.6 L (13.0-17.5) gm/dL Hct 38.3 L (39.0-53.0) % Plt Count 492 H D (150-450) k/uL Potassium 5.8 H (3.5-5.5) mmol/L Chloride 108 H (98-107) mmol/L Carbon Dioxide 18.5 L (21.6-31.8) mmol/L Anion Gap 14.50 H (4.00-12.00) mmol/L BUN 33 H 41.9 H (9-20) mg/dL Creatinine 1.69 H 2.4 H (0.66-1.25) mg/dL Est GFR (CKD-EPI) 26 L (>=60) Glucose 105 H 173 H (74-99) mg/dL POC Glucose (mg/dL) (70-110) mg/dL AST 36 H (14-35) U/L Alkaline Phosphatase 243 H 184 H (38-126) U/L Total Protein 5.9 L (6.2-8.2) d/dL Albumin 3.2 L (3.8-4.9) d/dL Albumin/Globulin Ratio 1.19 L (1.60-3.17) Ratio Lipase 476 H (23-300) U/L 03/28/23 Range/Units 08:27 Hgb (13.0-17.5) gm/dL Hct (39.0-53.0) % Plt Count (150-450) k/uL Potassium (3.5-5.5) mmol/L Chloride (98-107) mmol/L Carbon Dioxide (21.6-31.8) mmol/L Anion Gap (4.00-12.00) mmol/L BUN (9-20) mg/dL Creatinine (0.66-1.25) mg/dL Est GFR (CKD-EPI) (>=60) Glucose (74-99) mg/dL POC Glucose (mg/dL) 237 H (70-110) mg/dL AST (14-35) U/L Alkaline Phosphatase (38-126) U/L Total Protein (6.2-8.2) d/dL Albumin (3.8-4.9) d/dL Albumin/Globulin Ratio (1.60-3.17) Ratio Lipase (23-300) U/L
[2023-03-28] MEDS: HEPARIN SODIUM,PORCINE 5,000 UNIT/ML 1 ML VIAL SQ SCH ×3 (13:31→23:10)
[2023-03-28 13:36] LABS: Basophils # (A) 0.01 X 10*3/uL (0.00-0.10); Basophils % (A) 0.1 %; Eosinophils # (A) 0 X 10*3/uL (0.04-0.35); Eosinophils % (A) 0 %; HGB 9.4 d/dL (13.0-17.0); Lymphocytes # (A) 0.58 X 10*3/uL (0.90-5.00); Lymphocytes % (A) 4.7 %; MCH 28.1 pg (27.0-32.0); MCHC 31.3 d/dL (32.0-37.0); MCV 89.6 FL (80.0-97.0); Mean Platelet Volume 9.6 FL (9.5-12.2); Monocytes # (A) 0.93 X 10*3/uL (0.20-1.00); Monocytes % (A) 7.6 %; NRBC Per 100 WBC 0 X 10*3/uL (0.00-0.01); Neutrophils # (A) 10.71 X 10*3/uL (1.80-7.70); Neutrophils % (A) 87.1 %; Platelet Count 441 X 10*3/uL (140-440); RBC 3.35 X 10*6/uL (4.40-5.60); RDW 14.4 % (11.5-14.5); WBC 12.29 X 10*3/uL (4.50-10.00)
[2023-03-28] MEDS: SODIUM CHLORIDE 0.9% 1,000 ML IV SCH (14:04)
[2023-03-28] MEDS: LACTATED RINGERS 1,000 ML IV SCH (15:00)
--- NOTE | 2023-03-28 18:31 | P.PN ---
Subjective Progress Note Date: 03/28/23 Principal diagnosis: Gallstone pancreatitis Patient feels tired. Mild abdominal discomfort. Says his pain is 2 out of 10. ISHMAEL output is sanguinous. Hemoglobin today 9.4 from 12 yesterday. Apparently had some bloody drainage around the ISHMAEL site earlier today. Systolic blood p ressure 100s. Objective - Vital Signs Vital signs: Vital Signs Temp 98.1 F 03/28/23 13:55 Pulse 88 03/28/23 13:55 Resp 18 03/28/23 13:55 BP 105/61 03/28/23 13:55 Pulse Ox 96 03/28/23 13:55 FiO2 2 03/27/23 19:15 Intake & Output 03/27/23 03/28/23 03/28/23 18:59 06:59 18:59 Intake Total 1350 240 Output Total 50 480 120 Balance 1300 -240 -120 Weight 85.3 kg 85.3 kg Intake: IV 1350 Oral 240 Output: Drainage 130 120 Right Abdomen 130 120 Urine 350 Estimated Blood Loss 50 Other: # Voids 4 - Exam Abdomen: Soft, nondistended, mild tenderness, incisions clean and dry, no ecchymosis - Labs CBC & Chem 7: 03/28/23 05:20 03/28/23 14:39 Labs: Abnormal Lab Results - Last 24 Hours (Table) 03/28/23 03/28/23 03/28/23 Range/Units 05:20 05:20 08:27 WBC 12.29 H (4.50-10.00) X 10*3/uL RBC 3.35 L (4.40-5.60) X 10*6/uL Hgb 9.4 L (13.0-17.0) d/dL Hct 30.0 L (39.6-50.0) % MCHC 31.3 L (32.0-37.0) d/dL Plt Count 441 H (140-440) X 10*3/uL Neutrophils # 10.71 H (1.80-7.70) X 10*3/uL Lymphocytes # 0.58 L (0.90-5.00) X 10*3/uL Eosinophils # 0 L (0.04-0.35) X 10*3/uL Potassium 5.8 H (3.5-5.5) mmol/L Carbon Dioxide 18.5 L (21.6-31.8) mmol/L Anion Gap 14.50 H (4.00-12.00) mmol/L BUN 41.9 H (9.0-27.0) mg/dL Creatinine 2.4 H (0.6-1.5) mg/dL Est GFR (CKD-EPI) 26 L (>=60) Glucose 173 H (70-110) mg/dL POC Glucose (mg/dL) 237 H (70-110) mg/dL AST 36 H (14-35) U/L Alkaline Phosphatase 184 H (41-126) U/L Total Protein 5.9 L (6.2-8.2) d/dL Albumin 3.2 L (3.8-4.9) d/dL Albumin/Globulin Ratio 1.19 L (1.60-3.17) Ratio 03/28/23 03/28/23 Range/Units 11:18 14:39 WBC (4.50-10.00) X 10*3/uL RBC (4.40-5.60) X 10*6/uL Hgb (13.0-17.0) d/dL Hct (39.6-50.0) % MCHC (32.0-37.0) d/dL Plt Count (140-440) X 10*3/uL Neutrophils # (1.80-7.70) X 10*3/uL Lymphocytes # (0.90-5.00) X 10*3/uL Eosinophils # (0.04-0.35) X 10*3/uL Potassium 5.2 H (3.5-5.5) mmol/L Carbon Dioxide (21.6-31.8) mmol/L Anion Gap (4.00-12.00) mmol/L BUN (9.0-27.0) mg/dL Creatinine (0.6-1.5) mg/dL Est GFR (CKD-EPI) (>=60) Glucose (70-110) mg/dL POC Glucose (mg/dL) 193 H (70-110) mg/dL AST (14-35) U/L Alkaline Phosphatase (41-126) U/L Total Protein (6.2-8.2) d/dL Albumin (3.8-4.9) d/dL Albumin/Globulin Ratio (1.60-3.17) Ratio Assessment and Plan (1) Gallstone pancreatitis Narrative/Plan: 87-year-old male doing fairly well after challenging laparoscopic cholecystectomy yesterday. Patient with some sanguinous fluid in the ISHMAEL drain and some drop in hemoglobin. Recheck hemoglobin tomorrow. We'll follow closely. Current Visit: No Status: Acute Code(s): K85.10 - BILIARY ACUTE PANCREATITIS WITHOUT NECROSIS OR INFECTION SNOMED Code(s): 01493768
[2023-03-28] MEDS ORDERED: LEVOFLOXACIN 500MG-D5W PMX 500 MG in DEXTROSE/WATER 1 100ML.BAG IVPB ONE (19:00)
--- NOTE | 2023-03-28 19:47 | US ---
EXAMINATION TYPE: US kidneys/renal and bladder DATE OF EXAM: 03/28/2023 Exam done portable COMPARISON: CT 2022 CLINICAL INDICATION: Male, 87 years old with history of Darnell; EXAM MEASUREMENTS: Right Kidney: 10.4 x 4.1 x 3.6 cm Left Kidney: 8.6 x 4.2 x 3.8 cm Right Kidney: limited visualization due to drainage bandage covering right flank Left Kidney: limited visualization due to rib shadowing and overlying bowel gas Bladder: irregular posterior wall Prostate: enlarged at 9.9 x 5.6 x 7.8cm Limited visualization of the urinary bladder. IMPRESSION: 1. Renal ultrasound as visualized appears normal. There is some limitation due to patient bandaging. 2. Marked enlarged prostate. 3. There may be some irregularity of the posterior wall urinary bladder. Consider additional workup.
[2023-03-28] MEDS: FAMOTIDINE 20 MG TAB PO SCH (20:37)
[2023-03-29] MEDS: SODIUM CHLORIDE 0.9% 1,000 ML IV SCH ×2 (01:05→21:04)
[2023-03-29] MEDS: ACETAMINOPHEN TAB 325 MG TAB PO PRN (02:02)
[2023-03-29] MEDS: HEPARIN SODIUM,PORCINE 5,000 UNIT/ML 1 ML VIAL SQ SCH ×3 (08:13→22:56)
[2023-03-29] MEDS: CHOLECALCIFEROL 25 MCG (1000 IU) TABLET PO SCH (08:13)
[2023-03-29] MEDS: PANTOPRAZOLE 40 MG TABLET PO SCH (08:13)
[2023-03-29] MEDS: FLUTICASONE 50MCG/SPRAY NASAL 16GM INTRANASAL SCH (08:13)
[2023-03-29] MEDS: allopurinoL 100 MG TAB PO SCH (08:13)
[2023-03-29 11:13] LABS: ALT 22 U/L (10-49); AST 29 U/L (14-35); Albumin/Globulin Ratio 1.25 Ratio (1.60-3.17); Alkaline Phosphatase 146 U/L (41-126); Blood Urea Nitrogen 54.9 mg/dL (9.0-27.0); Calcium 8.4 mg/dL (8.7-10.3); Carbon Dioxide 20.8 mmol/L (21.6-31.8); Chloride 107 mmol/L (96-109); Globulin 2.4 d/dL (1.6-3.3); Glucose 110 mg/dL (70-110); Potassium 5.1 mmol/L (3.5-5.5); Sodium 138 mmol/L (135-145); Total Bilirubin 0.3 mg/dL (0.3-1.2); Total Protein 5.4 d/dL (6.2-8.2)
[2023-03-29 13:10] LABS: HCT 23.4 % (39.0-53.0); Hypochromasia Slight; MCH 28.8 pg (25.0-35.0); MCHC 32.4 g/dL (31.0-37.0); MCV 88.9 fL (80.0-100.0); Mean Platelet Volume 8.3; Platelet Count 348 k/uL (150-450); RBC 2.64 m/uL (4.30-5.90); RDW 14.3 % (11.5-15.5); WBC 9.2 k/uL (3.8-10.6)
[2023-03-29 13:14] LABS: HGB 7.6 gm/dL (13.0-17.5)
[2023-03-29] MEDS ORDERED: CALCIUM CARBONATE 500 MG CHEWABLE PO PRN (14:14)
[2023-03-29] MEDS: LACTATED RINGERS 1,000 ML IV SCH (14:17)
--- NOTE | 2023-03-29 14:35 | P.PN ---
Subjective Progress Note Date: 03/29/23 87-year-old gentleman who presented to the hospital for elective lap cholecystectomy. Patient was seen earlier this month for acute pancreatitis, found to be gallstone pancreatitis, patient had elevated LFTs, patient was later discharged and was following up outpatient with general surgery, patient LFTs normalized. Patient was scheduled for elective cholecystectomy on 03/27, postoperatively medical team were consulted for medical management 03/29. Patient seen and examined. Hyperkalemia improved, currently waiting on morning labs. REVIEW OF SYSTEMS: CONSTITUTIONAL: No fever, no malaise,. CARDIOVASCULAR: No chest pain, no palpitations, no syncope. PULMONARY: No shortness of breath, no cough, GASTROINTESTINAL: No diarrhea, no nausea, no vomiting, no abdominal pain. NEUROLOGICAL: No headaches, no weakness, PHYSICAL EXAMINATION: GENERAL: The patient is alert and oriented x3, not in any acute distress. Well developed, well nourished. HEENT: Pupils are round and equally reacting to light. EOMI. No scleral icterus. No conjunctival pallor. Normocephalic, atraumatic. No pharyngeal erythema. No thyromegaly. CARDIOVASCULAR: S1 and S2 present. No murmurs, rubs, or gallops. PULMONARY: Chest is clear to auscultation, no wheezing or crackles. ABDOMEN: Soft, nontender, nondistended, normoactive bowel sounds. No palpable organomegaly. MUSCULOSKELETAL: No joint swelling or deformity. EXTREMITIES: No cyanosis, clubbing, or pedal edema. NEUROLOGICAL: Gross neurological examination did not reveal any focal deficits. SKIN: No rashes. Assessment and plan Cholelithiasis, status post laparoscopic cholecystectomy Hyperkalemia Acute kidney injury Monitor vital signs Monitor CBC Monitor CMP Low potassium diet Continue IV fluids Renal ultrasound done showed enlarged prostate, some irregularity of the posterior bladder wall Continue pain management per surgery Continue IV Levaquin per surgery PT and OT evaluation Labs and medication were reviewed.. Continue same treatment. Continue with symptomatic treatment. Resume home medication. Monitor labs and vitals. DVT and GI prophylaxis. Further recommendations as per clinical course of the patient Dictation was produced using [employer] dictation software. please excuse any grammatical, word or spelling errors. Objective - Vital Signs Vital signs: Vital Signs Temp 97.8 F 03/29/23 06:59 Pulse 78 03/29/23 06:59 Resp 17 03/29/23 06:59 BP 129/63 03/29/23 06:59 Pulse Ox 96 03/29/23 06:59 FiO2 2 03/27/23 19:15 Intake & Output 03/28/23 03/29/23 03/29/23 18:59 06:59 18:59 Intake Total 375 Output Total 120 950 Balance 255 -950 Intake: Intake, IV Titration 375 Amount Sodium Chloride 0.9% 1, 375 000 ml @ 75 mls/hr IV . [id number] JESICA Rx#:[id number] Output: Drainage 120 Right Abdomen 120 Urine 950 Other: # Voids 4 4 - Labs CBC & Chem 7: 03/28/23 05:20 03/28/23 14:39 Labs: Abnormal Lab Results - Last 24 Hours (Table) 03/28/23 03/28/23 03/28/23 Range/Units 05:20 11:18 14:39 WBC 12.29 H (4.50-10.00) X 10*3/uL RBC 3.35 L (4.40-5.60) X 10*6/uL Hgb 9.4 L (13.0-17.0) d/dL Hct 30.0 L (39.6-50.0) % MCHC 31.3 L (32.0-37.0) d/dL Plt Count 441 H (140-440) X 10*3/uL Neutrophils # 10.71 H (1.80-7.70) X 10*3/uL Lymphocytes # 0.58 L (0.90-5.00) X 10*3/uL Eosinophils # 0 L (0.04-0.35) X 10*3/uL Potassium 5.2 H (3.5-5.1) mmol/L POC Glucose (mg/dL) 193 H (70-110) mg/dL Hemoglobin A1c (<=6.0) % 03/28/23 Range/Units 14:42 WBC (4.50-10.00) X 10*3/uL RBC (4.40-5.60) X 10*6/uL Hgb (13.0-17.0) d/dL Hct (39.6-50.0) % MCHC (32.0-37.0) d/dL Plt Count (140-440) X 10*3/uL Neutrophils # (1.80-7.70) X 10*3/uL Lymphocytes # (0.90-5.00) X 10*3/uL Eosinophils # (0.04-0.35) X 10*3/uL Potassium (3.5-5.1) mmol/L POC Glucose (mg/dL) (70-110) mg/dL Hemoglobin A1c 6.9 H (<=6.0) %
--- NOTE | 2023-03-29 16:10 | P.PN ---
Subjective Progress Note Date: 03/29/23 Principal diagnosis: Gallstone pancreatitis Patient feels better today. Less fatigue. Mild gassiness E says. He did pass some gas. No vomiting. May be some nausea when questioned. He has had some hiccups. Appetite is improved. ISHMAEL drain remains more sanguinous then serosa nguineous. Output decreased. Vitals are improved. Today's hemoglobin 7.6. Objective - Vital Signs Vital signs: Vital Signs Temp 97.6 F 03/29/23 13:40 Pulse 59 L 03/29/23 13:40 Resp 17 03/29/23 13:40 BP 128/67 03/29/23 13:40 Pulse Ox 99 03/29/23 13:40 FiO2 2 03/27/23 19:15 Intake & Output 03/28/23 03/29/23 03/29/23 18:59 06:59 18:59 Intake Total 375 0 Output Total 120 950 Balance 255 -950 0 Intake: Intake, IV Titration 375 Amount Sodium Chloride 0.9% 1, 375 000 ml @ 75 mls/hr IV . [id number] JESICA Rx#:[id number] Blood Product 0 Unit 0 Output: Drainage 120 Right Abdomen 120 Urine 950 Other: # Voids 4 4 - Exam Abdomen: Soft, mild tenderness, incision clean and dry, nondistended - Labs CBC & Chem 7: 03/29/23 07:10 03/29/23 07:10 Labs: Abnormal Lab Results - Last 24 Hours (Table) 03/28/23 03/29/23 03/29/23 Range/Units 14:42 07:10 07:10 RBC 2.64 L (4.30-5.90) m/uL Hgb 7.6 L D (13.0-17.5) gm/dL Hct 23.4 L (39.0-53.0) % Carbon Dioxide 20.8 L (21.6-31.8) mmol/L BUN 54.9 H (9.0-27.0) mg/dL Creatinine 3.0 H (0.6-1.5) mg/dL Est GFR (CKD-EPI) 20 L (>=60) Hemoglobin A1c 6.9 H (<=6.0) % Calcium 8.4 L (8.7-10.3) mg/dL Alkaline Phosphatase 146 H (41-126) U/L Total Protein 5.4 L (6.2-8.2) d/dL Albumin 3.0 L (3.8-4.9) d/dL Albumin/Globulin Ratio 1.25 L (1.60-3.17) Ratio Crossmatch 03/29/23 Range/Units 14:44 RBC (4.30-5.90) m/uL Hgb (13.0-17.5) gm/dL Hct (39.0-53.0) % Carbon Dioxide (21.6-31.8) mmol/L BUN (9.0-27.0) mg/dL Creatinine (0.6-1.5) mg/dL Est GFR (CKD-EPI) (>=60) Hemoglobin A1c (<=6.0) % Calcium (8.7-10.3) mg/dL Alkaline Phosphatase (41-126) U/L Total Protein (6.2-8.2) d/dL Albumin (3.8-4.9) d/dL Albumin/Globulin Ratio (1.60-3.17) Ratio Crossmatch See Detail Assessment and Plan (1) Gallstone pancreatitis Narrative/Plan: 87-year-old male doing fairly well today after challenging laparoscopic cholecystectomy 2 days ago. Patient with some acute blood loss anemia related to the liver bed inflammation. We'll transfuse 1 unit of packed red blood cells. Recheck labs tomorrow. Continue observation. Current Visit: No Status: Acute Code(s): K85.10 - BILIARY ACUTE PANCREATITIS WITHOUT NECROSIS OR INFECTION SNOMED Code(s): 48306183
--- NOTE | 2023-03-29 17:55 | P.GSCN ---
History of Present Illness Consult date: 03/29/23 History of present illness: 87 yo male in the hospital for a cholecystectomy. He had post op retention that has resolved. He no longer has a catheter in place. He was seen by Dr camilo in the past for a large prostate, elevated psa, and urine retention. Dr Camilo had him on cic but hasnt been using a catheter for several years. He was voiding ok preoperatively without frequency, urgency ,incontinence or pain. He was on tamsulosin and finasteride but no longer is. He was last seen in our office in 2013. Review of Systems All systems: negative - Constitutional Denies fever, Denies weight loss - EENT Eyes: denies blurred vision Ears, nose, mouth and throat: Denies dysphagia - Cardiovascular Denies chest pain, Denies shortness of breath - Respiratory Denies cough, Denies 7 - Gastrointestinal Reports as per HPI - Genitourinary Denies dysuria, Denies hematuria - Integumentary Denies rash, Denies unusual bruising - Neurological Denies headaches, Denies syncope - Hematologic/Lymphatic Denies easy bleeding, Denies easy bruising Past Medical History Past Medical History: No Reported History Additional Past Medical History / Comment(s): gout History of Any Multi-Drug Resistant Organisms: None Reported Additional Past Surgical History / Comment(s): eye surgery Past Anesthesia/Blood Transfusion Reactions: No Reported Reaction Past Psychological History: No Psychological Hx Reported Smoking Status: Never smoker Past Alcohol Use History: None Reported Past Drug Use History: None Reported - Past Family History Mother Family Medical History: No Reported History Medications and Allergies Home Medications Medication Instructions Recorded Confirmed Type Ascorbic Acid [Vitamin C] 500 mg PO DAILY 10/09/20 03/19/23 History Cholecalciferol [Vitamin D3 (25 25 mcg PO DAILY 10/09/20 03/19/23 History Mcg = 1000 Iu)] Fluticasone Propionate 2 spray PO DAILY 03/13/23 03/19/23 History allopurinoL 200 mg PO DAILY 03/13/23 03/19/23 History Pantoprazole [Protonix] 40 mg PO DAILY 15 Days #15 tab 03/15/23 03/19/23 Rx Allergies Allergy/AdvReac Type Severity Reaction Status Date / Time No Known Allergies Allergy Verified 03/27/23 14:09 Surgical - Exam Vital Signs Temp Pulse Resp BP Pulse Ox 97.5 F L 79 16 181/79 97 03/27/23 14:11 03/27/23 14:11 03/27/23 14:11 03/27/23 14:11 03/27/23 14:11 - General well developed, well nourished, no distress - Eyes normal ocular movement, no icteric - ENT no hearing loss, no congestion - Neck no masses, trachea midline - Respiratory normal respiratory effort, clear to auscultation - Abdomen Abdomen: soft, non tender, no guarding, no rigid, no rebound - Integumentary no rash, no abnormal pigmentation - Neurologic no disoriented, no combative - Psychiatric oriented to time, oriented to person, oriented to place, speech is normal, memory intact Results - Labs 03/29/23 07:10 03/29/23 07:10 Abnormal Lab Results - Last 24 Hours (Table) 03/28/23 03/29/23 03/29/23 Range/Units 14:42 07:10 07:10 RBC 2.64 L (4.30-5.90) m/uL Hgb 7.6 L D (13.0-17.5) gm/dL Hct 23.4 L (39.0-53.0) % Carbon Dioxide 20.8 L (21.6-31.8) mmol/L BUN 54.9 H (9.0-27.0) mg/dL Creatinine 3.0 H (0.6-1.5) mg/dL Est GFR (CKD-EPI) 20 L (>=60) Hemoglobin A1c 6.9 H (<=6.0) % Calcium 8.4 L (8.7-10.3) mg/dL Alkaline Phosphatase 146 H (41-126) U/L Total Protein 5.4 L (6.2-8.2) d/dL Albumin 3.0 L (3.8-4.9) d/dL Albumin/Globulin Ratio 1.25 L (1.60-3.17) Ratio Crossmatch 03/29/23 Range/Units 14:44 RBC (4.30-5.90) m/uL Hgb (13.0-17.5) gm/dL Hct (39.0-53.0) % Carbon Dioxide (21.6-31.8) mmol/L BUN (9.0-27.0) mg/dL Creatinine (0.6-1.5) mg/dL Est GFR (CKD-EPI) (>=60) Hemoglobin A1c (<=6.0) % Calcium (8.7-10.3) mg/dL Alkaline Phosphatase (41-126) U/L Total Protein (6.2-8.2) d/dL Albumin (3.8-4.9) d/dL Albumin/Globulin Ratio (1.60-3.17) Ratio Crossmatch See Detail Diabetes panel 03/28/23 03/29/23 Range/Units 14:42 07:10 Sodium 138 (135-145) mmol/L Potassium 5.1 (3.5-5.5) mmol/L Chloride 107 (96-109) mmol/L Carbon Dioxide 20.8 L (21.6-31.8) mmol/L BUN 54.9 H (9.0-27.0) mg/dL Creatinine 3.0 H (0.6-1.5) mg/dL Glucose 110 (70-110) mg/dL Hemoglobin A1c 6.9 H (<=6.0) % Calcium 8.4 L (8.7-10.3) mg/dL AST 29 (14-35) U/L ALT 22 (10-49) U/L Alkaline Phosphatase 146 H (41-126) U/L Total Protein 5.4 L (6.2-8.2) d/dL Albumin 3.0 L (3.8-4.9) d/dL Calcium panel 03/29/23 Range/Units 07:10 Calcium 8.4 L (8.7-10.3) mg/dL Albumin 3.0 L (3.8-4.9) d/dL Pituitary panel 03/29/23 Range/Units 07:10 Sodium 138 (135-145) mmol/L Potassium 5.1 (3.5-5.5) mmol/L Chloride 107 (96-109) mmol/L Carbon Dioxide 20.8 L (21.6-31.8) mmol/L BUN 54.9 H (9.0-27.0) mg/dL Creatinine 3.0 H (0.6-1.5) mg/dL Glucose 110 (70-110) mg/dL Calcium 8.4 L (8.7-10.3) mg/dL Adrenal panel 03/29/23 Range/Units 07:10 Sodium 138 (135-145) mmol/L Potassium 5.1 (3.5-5.5) mmol/L Chloride 107 (96-109) mmol/L Carbon Dioxide 20.8 L (21.6-31.8) mmol/L BUN 54.9 H (9.0-27.0) mg/dL Creatinine 3.0 H (0.6-1.5) mg/dL Glucose 110 (70-110) mg/dL Calcium 8.4 L (8.7-10.3) mg/dL Total Bilirubin 0.3 (0.3-1.2) mg/dL AST 29 (14-35) U/L ALT 22 (10-49) U/L Alkaline Phosphatase 146 H (41-126) U/L Total Protein 5.4 L (6.2-8.2) d/dL Albumin 3.0 L (3.8-4.9) d/dL Assessment and Plan Assessment: Impression: post op urine retention resolved. Large prostate without obstructive symptoms. Recommendation; No further urologic intervention is required
[2023-03-29] MEDS ORDERED: LEVOFLOXACIN 250MG-D5W PMX 250 MG in DEXTROSE/WATER 1 50ML.BAG IVPB SCH (19:00)
[2023-03-29] MEDS: FAMOTIDINE 20 MG TAB PO SCH (20:12)
[2023-03-30 02:17] VITALS: RESP 16; TEMP 98.7
[2023-03-30] MEDS: SODIUM CHLORIDE 0.9% 1,000 ML IV SCH (06:09)
[2023-03-30 07:47] VITALS: BP 147/71; PULSE 69
[2023-03-30] MEDS: CHOLECALCIFEROL 25 MCG (1000 IU) TABLET PO SCH (09:15)
[2023-03-30] MEDS: allopurinoL 100 MG TAB PO SCH (09:15)
[2023-03-30] MEDS: PANTOPRAZOLE 40 MG TABLET PO SCH (09:15)
[2023-03-30] MEDS: HEPARIN SODIUM,PORCINE 5,000 UNIT/ML 1 ML VIAL SQ SCH (09:16)
[2023-03-30] MEDS: FLUTICASONE 50MCG/SPRAY NASAL 16GM INTRANASAL SCH (09:16)
[2023-03-30 11:06] LABS: Basophils # (A) 0.04 X 10*3/uL (0.00-0.10); Basophils % (A) 0.5 %; Eosinophils # (A) 0.11 X 10*3/uL (0.04-0.35); Eosinophils % (A) 1.4 %; HCT 25.6 % (39.6-50.0); HGB 7.9 d/dL (13.0-17.0); Lymphocytes # (A) 0.61 X 10*3/uL (0.90-5.00); Lymphocytes % (A) 7.7 %; MCH 27.2 pg (27.0-32.0); MCHC 30.9 d/dL (32.0-37.0); MCV 88.3 FL (80.0-97.0); Mean Platelet Volume 9.4 FL (9.5-12.2); Monocytes # (A) 0.84 X 10*3/uL (0.20-1.00); Monocytes % (A) 10.7 %; NRBC Per 100 WBC 0.02 X 10*3/uL (0.00-0.01); Neutrophils # (A) 6.25 X 10*3/uL (1.80-7.70); Neutrophils % (A) 79.3 %; Platelet Count 342 X 10*3/uL (140-440); RDW 14.7 % (11.5-14.5); WBC 7.88 X 10*3/uL (4.50-10.00)
--- NOTE | 2023-03-30 12:06 | P.PN ---
Subjective Progress Note Date: 03/30/23 87-year-old gentleman who presented to the hospital for elective lap cholecystectomy. Patient was seen earlier this month for acute pancreatitis, found to be gallstone pancreatitis, patient had elevated LFTs, patient was later discharged and was following up outpatient with general surgery, patient LFTs normalized. Patient was scheduled for elective cholecystectomy on 03/27, postoperatively medical team were consulted for medical management 03/29. Patient seen and examined. Hyperkalemia improved, currently waiting on morning labs. 03/30. Patient seen and examined. Sitting upright in the bed. PT and OT recommended rehab but patient wants to go home with homecare. If potassium levels are normal, patient is medically stable from discharge from medicine perspective REVIEW OF SYSTEMS: CONSTITUTIONAL: No fever, no malaise,. CARDIOVASCULAR: No chest pain, no palpitations, no syncope. PULMONARY: No shortness of breath, no cough, GASTROINTESTINAL: No diarrhea, no nausea, no vomiting, no abdominal pain. NEUROLOGICAL: No headaches, no weakness, PHYSICAL EXAMINATION: GENERAL: The patient is alert and oriented x3, not in any acute distress. Well developed, well nourished. HEENT: Pupils are round and equally reacting to light. EOMI. No scleral icterus. No conjunctival pallor. Normocephalic, atraumatic. No pharyngeal erythema. No thyromegaly. CARDIOVASCULAR: S1 and S2 present. No murmurs, rubs, or gallops. PULMONARY: Chest is clear to auscultation, no wheezing or crackles. ABDOMEN: Soft, laparoscopic surgical incision seen, drain in place MUSCULOSKELETAL: No joint swelling or deformity. EXTREMITIES: No cyanosis, clubbing, or pedal edema. NEUROLOGICAL: Gross neurological examination did not reveal any focal deficits. SKIN: No rashes. Assessment and plan Cholelithiasis, status post laparoscopic cholecystectomy Hyperkalemia Acute kidney injury Monitor vital signs Monitor CBC Monitor CMP Renal ultrasound done showed enlarged prostate, some irregularity of the posterior bladder wall urology evaluated, recommended no further urological intervention Continue pain management per surgery PT OT recommended rehab, patient was to be discharged home with homecare Patient medical stable for discharge from medicine perspective Labs and medication were reviewed.. Continue same treatment. Continue with symptomatic treatment. Resume home medication. Monitor labs and vitals. DVT and GI prophylaxis. Further recommendations as per clinical course of the patient Dictation was produced using Grab[employer] dictation software. please excuse any grammatical, word or spelling errors. Objective - Vital Signs Vital signs: Vital Signs Temp 98.7 F 03/30/23 07:04 Pulse 69 03/30/23 07:04 Resp 16 03/30/23 07:04 BP 147/71 03/30/23 07:04 Pulse Ox 96 03/30/23 07:04 FiO2 2 03/27/23 19:15 Intake & Output 03/29/23 03/30/23 03/30/23 18:59 06:59 18:59 Intake Total 0 291 Balance 0 291 Intake: Blood Product 0 291 Rc Pheresis As-3 Unit 0 291 [id number] Other: Voiding Method Self-Catheterization # Voids 4 2 1 # Bowel Movements 1 - Labs CBC & Chem 7: 03/30/23 07:06 03/29/23 07:10 Labs: Abnormal Lab Results - Last 24 Hours (Table) 03/29/23 03/29/23 03/30/23 Range/Units 07:10 14:44 07:06 RBC 2.64 L 2.90 L (4.30-5.90) m/uL Hgb 7.6 L D 7.9 L (13.0-17.5) gm/dL Hct 23.4 L 25.6 L (39.0-53.0) % MCHC 30.9 L (32.0-37.0) d/dL RDW 14.7 H (11.5-14.5) % MPV 9.4 L (9.5-12.2) [place] Lymphocytes # 0.61 L (0.90-5.00) X 10*3/uL NRBC/100 WBC Diff 0.02 H (0.00-0.01) X 10*3/uL Crossmatch See Detail
--- NOTE | 2023-03-30 12:06 | P.DS ---
Providers Date of admission: 03/28/23 14:04 Expected date of discharge: 03/30/23 Attending physician: Carson Osorio Consults: 03/27/23 16:56 Consult Physician Routine Consulting Provider: Isaiah Samuels Consult Reason/Comments: Medical management Do you want consulting provider notified?: Yes 03/29/23 09:59 Consult Physician Routine Consulting Provider: Celio Hdz Consult Reason/Comments: Urinary retention, enlarged prostate, irregularity of bladder wall Do you want consulting provider notified?: Yes Primary care physician: Vikram Carver Hospital Course: This 87-year-old male who underwent laparoscopic cholecystectomy for acute cholecystitis. Patient did well postop. Patient did have she with postoperative anemia secondary to postoperative bleeding. On the day of discharge patient was stable. He was tolerating diet his abdomen was soft. Procedures: Laparoscopic cholecystectomy Plan - Discharge Summary Discharge Rx Participant: No New Discharge Prescriptions: New Ibuprofen [Motrin] 600 mg PO Q6HR PRN #40 tab PRN Reason: Pain Acetaminophen Tab [Tylenol] 650 mg PO Q6H #30 tab No Action Cholecalciferol [Vitamin D3 (25 Mcg = 1000 Iu)] 25 mcg PO DAILY Ascorbic Acid [Vitamin C] 500 mg PO DAILY allopurinoL 200 mg PO DAILY Fluticasone Propionate 2 spray PO DAILY Pantoprazole [Protonix] 40 mg PO DAILY 15 Days #15 tab Discharge Medication List Ascorbic Acid [Vitamin C] 500 mg PO DAILY 10/09/20 [History] Cholecalciferol [Vitamin D3 (25 Mcg = 1000 Iu)] 25 mcg PO DAILY 10/09/20 [History] Fluticasone Propionate 2 spray PO DAILY 03/13/23 [History] allopurinoL 200 mg PO DAILY 03/13/23 [History] Pantoprazole [Protonix] 40 mg PO DAILY 15 Days #15 tab 03/15/23 [Rx] Acetaminophen Tab [Tylenol] 650 mg PO Q6H #30 tab 03/30/23 [Rx] Ibuprofen [Motrin] 600 mg PO Q6HR PRN #40 tab 03/30/23 [Rx] Follow up Appointment(s)/Referral(s): [facility] [[facility]] - 1-2 Days ([facility] will call you to schedule your in home nursing, physical therapy, occupational therapy, and aide visits. ) Carson Osorio MD [Medical Doctor] - 1 Week Discharge Disposition: HOME SELF-CARE
[2023-03-30 13:21] LABS: ALT 22 U/L (10-49); AST 29 U/L (14-35); Alkaline Phosphatase 149 U/L (41-126); BUN/Creat Ratio 19.69 Ratio (12.00-20.00); Blood Urea Nitrogen 51.2 mg/dL (9.0-27.0); Calcium 8.4 mg/dL (8.7-10.3); Carbon Dioxide 20.6 mmol/L (21.6-31.8); Chloride 110 mmol/L (96-109); Globulin 2.5 d/dL (1.6-3.3); Glucose 107 mg/dL (70-110); Potassium 5.6 mmol/L (3.5-5.5); Sodium 141 mmol/L (135-145); Total Bilirubin 0.4 mg/dL (0.3-1.2); Total Protein 5.5 d/dL (6.2-8.2)
--- NOTE | 2023-03-30 14:15 | CDI ---
Documentation Clarification Form Date: 03/30/2023 11:30:58 AM From: Mary García RN CCDS Phone: [phone] Admit Date: 03/28/2023 02:04:00 PM Patient Name: Live Lange Visit Number: [id number] Discharge Date: ATTENTION: The Clinical Documentation Specialists (CDI) and [facility] Coding Staff appreciate your assistance in clarifying documentation. Please respond to the clarification below the line at the bottom and electronically sign. The CDI & [facility] Coding staff will review the response and follow-up if needed. Please note: Queries are made part of the Legal Health Record. If you have any questions, please contact the author of this message via ITS. Dr. Carson Osorio Post op urine retention is documented 03/29,Urology consult and patient had Laparoscopic cholecystectomy, 03/27. Additional clarification is requested regarding the relationship, if any, that exists between the diagnosis and the procedure. Patients Admitting Diagnosis: Gallstone pancreatitis Post-Operative Diagnosis: Gallstone Pancreatitis Procedure performed: Laparoscopic cholecystectomy History/Risk Factors: 87-year-old male presents for elective Cholecystectomy due to gallstones with pancreatic inflammation. Medical History: Gout and urinary retention Urology consult, 03/29. Clinical Indicators: Urology Consult, 03/29: He was seen by Dr dockery in the past for a large prostate, elevated psa, and urine retention. Dr Dockery had him on cic but hasnt been using a catheter for several years. Medicine note, 03/30: Voiding method Self Catheterization. Treatment: Consults: Urology consult What relationship, if any, exists between the diagnosis of [insert dx] and the procedure: [ ] Post op retention is a complication of surgical procedure [XX ] Post op retention is related to patients co-morbid condition(s) of urine retention& not a complication of the procedure [ ] Other please specify ____ [ ] Unable to determine (Template Last Revised: October 2020) MTDD
== END 2023-03-30 13:51 | disposition home or self-care (01) | DRG 417 ==
LOC: OR 13:59 → 4SSUR 16:42 → OR 03-28 14:04 → 4SSUR 03-28 14:04
PROVIDERS: ADMIT Surgery; ATTEND Surgery
PROC: 0FT44ZZ Resection of Gallbladder, Percutaneous Endoscopic Approach (ICD-10-PCS; principal; 2023-03-27 15:30)
DX: K80.12 Calculus of gallbladder with acute and chronic cholecystitis without obstruction (principal); K85.10 Biliary acute pancreatitis without necrosis or infection; N17.9 Acute kidney failure, unspecified; D62 Acute posthemorrhagic anemia; N40.1 Benign prostatic hyperplasia with lower urinary tract symptoms; E87.5 Hyperkalemia; R33.8 Other retention of urine; Z87.39 Personal history of other diseases of the musculoskeletal system and connective tissue; Z79.899 Other long term (current) drug therapy
CPT/HCPCS: 76770; 80053; 83036; 83690; 84132; 85025; 85027; 86850; 86900; 86901; 86920; 88304; 94640

== ENCOUNTER 2024-04-07 10:17 | Emergency (ER) | payer MEDICARE, BC ==
--- NOTE | 2024-04-07 10:34 | ED ---
Nausea/Vomiting/Diarrhea HPI - General Chief complaint: Abdominal Pain Stated complaint: Diarrhea Time Seen by Provider: 04/07/24 10:22 Source: patient, RN notes reviewed Mode of arrival: ambulatory Limitations: no limitations - History of Present Illness Initial comments: This is an 88-year-old male who presents to the emergency department for diarrhea. States that it started 3 days ago. There is some form to this, it is not completely liquid. He woke up at 6 AM today, which is when he had his first bowel movement today. Describes this as "explosive" diarrhea. He then had small but loose bowel movements approximately every 30 minutes afterwards. Denies any new foods or medications. He does not have any abdominal pain, nausea, or vomiting associated with this. Denies any blood in his stool. He tried taking Pepto-Bismol without any relief. MD complaint: diarrhea - Related Data Home Medications Medication Instructions Recorded Confirmed Ascorbic Acid [Vitamin C] 500 mg PO DAILY 10/09/20 03/19/23 Cholecalciferol [Vitamin D3 (25 25 mcg PO DAILY 10/09/20 03/19/23 Mcg = 1000 Iu)] Fluticasone Propionate 2 spray PO DAILY 03/13/23 03/19/23 [Fluticasone Propionate Nasal [place]] allopurinoL 200 mg PO DAILY 03/13/23 03/19/23 Previous Rx's Medication Instructions Recorded Pantoprazole [Protonix] 40 mg PO DAILY 15 Days #15 tab 03/15/23 Acetaminophen Tab [Tylenol] 650 mg PO Q6H #30 tab 03/30/23 Ibuprofen [Motrin] 600 mg PO Q6HR PRN #40 tab 03/30/23 Loperamide HCl [Loperamide] 2 mg PO DIRECTED PRN #30 capsule 04/07/24 Vancomycin HCl [Vancocin HCl] 125 mg PO QID 10 Days #40 cap 04/07/24 cefUROXime axetiL [Ceftin] 500 mg PO BID 7 Days #14 tab 04/07/24 Allergies Allergy/AdvReac Type Severity Reaction Status Date / Time No Known Allergies Allergy Verified 03/27/23 14:09 Review of Systems ROS Statement: Those systems with pertinent positive or pertinent negative responses have been documented in the HPI. ROS Other: All systems not noted in ROS Statement are negative. Past Medical History Past Medical History: No Reported History Additional Past Medical History / Comment(s): gout History of Any Multi-Drug Resistant Organisms: None Reported Additional Past Surgical History / Comment(s): eye surgery Past Anesthesia/Blood Transfusion Reactions: No Reported Reaction Past Psychological History: No Psychological Hx Reported Smoking Status: Never smoker Past Alcohol Use History: None Reported Past Drug Use History: None Reported - Past Family History Mother Family Medical History: No Reported History General Exam Limitations: no limitations General appearance: alert, in no apparent distress Head exam: Present: atraumatic, normocephalic, normal inspection Respiratory exam: Present: normal lung sounds bilaterally. Absent: respiratory distress, wheezes, rales, rhonchi, stridor Cardiovascular Exam: Present: regular rate, normal rhythm, normal heart sounds. Absent: systolic murmur, diastolic murmur, rubs, gallop, clicks GI/Abdominal exam: Present: soft, normal bowel sounds. Absent: distended, tenderness, guarding, rebound, rigid Neurological exam: Present: alert, oriented X3, CN II-XII intact Psychiatric exam: Present: normal affect, normal mood Skin exam: Present: warm, dry, intact, normal color. Absent: rash Course Vital Signs 04/07/24 04/07/24 04/07/24 10:19 10:54 13:26 Temperature 97.8 F 97.7 F Pulse Rate 85 63 58 L Respiratory 16 18 20 Rate Blood Pressure 175/76 129/81 166/77 O2 Sat by Pulse 99 97 100 Oximetry Medical Decision Making - Medical Decision Making This is an 88 year old male who presents to the emergency department for diarrhea. Was pt. sent in by a medical professional or institution? @ -No Did you speak to anyone other than the patient for history? @ -No Did you review nursing and triage notes? @ -I disagree with the abdominal pain, patient denies any pain associated with the diarrhea. Were old charts reviewed? @ -No Differential Diagnosis? @ -Differential Diarrhea: Foodborne illness, gastroenteritis, C. difficile, medications, this is not meant to be an all-inclusive list. EKG interpreted by me (3pts min.)? @ -Not obtained X-rays interpreted by me (1pt min.)? @ -Not obtained CT interpreted by me (1pt min.)? @ -Not obtained U/S interpreted by me (1pt. min.)? @ -Not obtained What testing was considered but not performed? (CT, X-rays, U/S, labs)? Why? @ -None What meds were considered but not given? Why? @ -None Did you discuss the management of the patient with other professionals? @ -No Did you reconcile home meds? @ -No Was smoking cessation discussed for >3mins.? @ -No Was critical care preformed (if so, how long)? @ -No Were there social determinants of health that impacted care today? How? (Homelessness, low income, unemployed, alcoholism, drug addiction, transp ortation, low edu. Level, literacy, decrease access to med. care, intermediate, rehab)? @ -No Was there de-escalation of care discussed even if they declined? (Discuss DNR or withdrawal of care, Hospice)? @ -No What co-morbidities impacted this encounter? (DM, HTN, Smoking, COPD, CAD, Cancer, CVA, Hep., AIDS, mental health diagnosis, sleep apnea, morbid obesity)? @ -None Was patient admitted / discharged? @ -Discharged. Lab work demonstrate signs of dehydration and was otherwise unremarkable. Patient given a liter bolus of IV fluids and Lomotil. COVID, influenza, and RSV testing were negative. Urinalysis consistent with infection. Urine sent for culture. Patient was not exhibiting any abdominal pain and no imaging was obtained. While in the emergency department for a few hours, he only had 1 small bowel movement. He continued to remain pain-free. 1 g of Rocephin was administered in the emergency department. Prescription for cefuroxime was provided. Prescription for Lomotil provided as well for further management of the diarrhea. Patient discharged home in stable condition and advised to follow up with his PCP. Case discussed with ED attending, Dr. Mills. After the patient had been discharged, the C. difficile test did return positive. I called the patient and advised him of these results. Prescription for oral vancomycin was provided. Return precautions reviewed in depth, the patient is instructed to return to the emergency department with any new, worsening, or concerning symptoms. Patient verbalized understanding. Undiagnosed new problem with uncertain prognosis? @ -None Drug Therapy requiring intensive monitoring for toxicity (Heparin, Nitro, Insulin, Cardizem)? @ -None Were any procedures done? @ -None Diagnosis/symptom? @ -Diarrhea, UTI, c. diff colitis Acute, or Chronic, or Acute on Chronic? @ -Acute Uncomplicated (without systemic symptoms) or Complicated (systemic symptoms)? @ -Uncomplicated Side effects of treatment? @ -None Exacerbation, Progression, or Severe Exacerbation] @ -Not applicable Poses a threat to life or bodily function? @ -Unlikely at this time - Lab Data Result diagrams: 04/07/24 10:54 04/07/24 10:54 Lab Results 04/07/24 04/07/24 04/07/24 Range/Units 10:54 10:54 10:54 WBC 10.0 (3.8-10.6) k/uL RBC 4.07 L (4.30-5.90) m/uL Hgb 11.7 L (13.0-17.5) gm/dL Hct 36.5 L (39.0-53.0) % MCV 89.7 (80.0-100.0) fL MCH 28.8 (25.0-35.0) pg MCHC 32.1 (31.0-37.0) g/dL RDW 14.9 (11.5-15.5) % Plt Count 293 (150-450) k/uL MPV 6.9 Neutrophils % 82 % Lymphocytes % 8 % Monocytes % 7 % Eosinophils % 2 % Basophils % 0 % Neutrophils # 8.2 H (1.3-7.7) k/uL Lymphocytes # 0.8 L (1.0-4.8) k/uL Monocytes # 0.7 (0-1.0) k/uL Eosinophils # 0.2 (0-0.7) k/uL Basophils # 0.0 (0-0.2) k/uL Hypochromasia Slight Sodium 139 (137-145) mmol/L Potassium 4.5 (3.5-5.1) mmol/L Chloride 109 H (98-107) mmol/L Carbon Dioxide 24 (22-30) mmol/L Anion Gap 6 mmol/L BUN 33 H (9-20) mg/dL Creatinine 2.04 H (0.66-1.25) mg/dL Est GFR (CKD-EPI)AfAm 33 (>60 ml/min/1.73 sqM) Est GFR (CKD-EPI)NonAf 29 (>60 ml/min/1.73 sqM) Glucose 95 (74-99) mg/dL Plasma Lactic Acid Daniel (0.7-2.0) mmol/L Calcium 8.8 (8.4-10.2) mg/dL Phosphorus 3.6 (2.5-4.5) mg/dL Magnesium 2.0 (1.6-2.3) mg/dL Total Bilirubin 0.4 (0.2-1.3) mg/dL AST 27 (17-59) U/L ALT 18 (4-49) U/L Alkaline Phosphatase 95 (38-126) U/L Total Protein 6.5 (6.3-8.2) g/dL Albumin 3.5 (3.5-5.0) g/dL Amylase 66 (30-110) U/L Lipase 111 (23-300) U/L Urine Color Colorless Urine Appearance Cloudy (Clear) Urine pH 6.0 (5.0-8.0) Ur Specific [place] 1.007 (1.001-1.035) Urine Protein Trace H (Negative) Urine Glucose (UA) Negative (Negative) Urine Ketones Negative (Negative) Urine Blood Small H (Negative) Urine Nitrite Positive (Negative) Urine Bilirubin Negative (Negative) Urine Urobilinogen <2.0 (<2.0) mg/dL Ur Leukocyte Esterase Large H (Negative) Urine RBC 6 H (0-5) /hpf Urine WBC >182 H (0-5) /hpf Urine WBC Clumps Moderate H (None) /hpf Urine Bacteria Rare H (None) /hpf C. difficile (EIA) Intrp (Negative) Influenza Type A (PCR) (Not Detectd) Influenza Type B (PCR) (Not Detectd) RSV (PCR) (Not Detectd) SARS-CoV-2 (PCR) (Not Detectd) 04/07/24 04/07/24 04/07/24 Range/Units 10:54 10:54 10:54 WBC (3.8-10.6) k/uL RBC (4.30-5.90) m/uL Hgb (13.0-17.5) gm/dL Hct (39.0-53.0) % MCV (80.0-100.0) fL MCH (25.0-35.0) pg MCHC (31.0-37.0) g/dL RDW (11.5-15.5) % Plt Count (150-450) k/uL MPV Neutrophils % % Lymphocytes % % Monocytes % % Eosinophils % % Basophils % % Neutrophils # (1.3-7.7) k/uL Lymphocytes # (1.0-4.8) k/uL Monocytes # (0-1.0) k/uL Eosinophils # (0-0.7) k/uL Basophils # (0-0.2) k/uL Hypochromasia Sodium (137-145) mmol/L Potassium (3.5-5.1) mmol/L Chloride (98-107) mmol/L Carbon Dioxide (22-30) mmol/L Anion Gap mmol/L BUN (9-20) mg/dL Creatinine (0.66-1.25) mg/dL Est GFR (CKD-EPI)AfAm (>60 ml/min/1.73 sqM) Est GFR (CKD-EPI)NonAf (>60 ml/min/1.73 sqM) Glucose (74-99) mg/dL Plasma Lactic Acid Daniel 1.1 (0.7-2.0) mmol/L Calcium (8.4-10.2) mg/dL Phosphorus (2.5-4.5) mg/dL Magnesium (1.6-2.3) mg/dL Total Bilirubin (0.2-1.3) mg/dL AST (17-59) U/L ALT (4-49) U/L Alkaline Phosphatase (38-126) U/L Total Protein (6.3-8.2) g/dL Albumin (3.5-5.0) g/dL Amylase (30-110) U/L Lipase (23-300) U/L Urine Color Urine Appearance (Clear) Urine pH (5.0-8.0) Ur Specific [place] (1.001-1.035) Urine Protein (Negative) Urine Glucose (UA) (Negative) Urine Ketones (Negative) Urine Blood (Negative) Urine Nitrite (Negative) Urine Bilirubin (Negative) Urine Urobilinogen (<2.0) mg/dL Ur Leukocyte Esterase (Negative) Urine RBC (0-5) /hpf Urine WBC (0-5) /hpf Urine WBC Clumps (None) /hpf Urine Bacteria (None) /hpf C. difficile (EIA) Intrp Positive A (Negative) Influenza Type A (PCR) Not Detected (Not Detectd) Influenza Type B (PCR) Not Detected (Not Detectd) RSV (PCR) Not Detected (Not Detectd) SARS-CoV-2 (PCR) Not Detected (Not Detectd) Disposition Clinical Impression: Diarrhea, UTI (urinary tract infection), C. difficile colitis Disposition: HOME SELF-CARE Instructions (If sedation given, give patient instructions): Loperamide (By mouth), Urinary Tract Infection in Men (ED), Acute Diarrhea (ED) Additional Instructions: Return to the emergency department with any new, worsening, or concerning symptoms. Take the antibiotic as prescribed for 7 days. Try taking the loperamide as prescribed for the diarrhea. Make sure you remain well-hydrated. Follow up with your primary care provider in 1-2 days. Prescriptions: cefUROXime axetiL [Ceftin] 500 mg PO BID 7 Days #14 tab Loperamide HCl [Loperamide] 2 mg PO DIRECTED PRN #30 capsule PRN Reason: Diarrhea Vancomycin HCl [Vancocin HCl] 125 mg PO QID 10 Days #40 cap Is patient prescribed a controlled substance at d/c from ED?: No Referrals: Vikram Carver MD [Primary Care Provider] - 1-2 days Time of Disposition: 13:17
[2024-04-07] MEDS: DIPHENOX-ATROP 2.5-0.025 MG 1 EACH TAB PO STA (11:01)
[2024-04-07] MEDS: SODIUM CHLORIDE 0.9% 1,000 ML IV STA (11:03)
[2024-04-07 11:12] LABS: Basophils % (A) 0 %; Eosinophils # (A) 0.2 k/uL (0-0.7); Eosinophils % (A) 2 %; HCT 36.5 % (39.0-53.0); HGB 11.7 gm/dL (13.0-17.5); Hypochromasia Slight; Lymphocytes # (A) 0.8 k/uL (1.0-4.8); Lymphocytes % (A) 8 %; MCH 28.8 pg (25.0-35.0); MCHC 32.1 g/dL (31.0-37.0); MCV 89.7 fL (80.0-100.0); Mean Platelet Volume 6.9; Monocytes # (A) 0.7 k/uL (0-1.0); Monocytes % (A) 7 %; Neutrophils # (A) 8.2 k/uL (1.3-7.7); Neutrophils % (A) 82 %; Platelet Count 293 k/uL (150-450); RBC 4.07 m/uL (4.30-5.90); RDW 14.9 % (11.5-15.5)
[2024-04-07 11:28] LABS: ALT 18 U/L (4-49); AST 27 U/L (17-59); African American GFR (CKD) 33 (>60 ml/min/1.73 sqM); Albumin 3.5 g/dL (3.5-5.0); Alkaline Phosphatase 95 U/L (38-126); Amylase 66 U/L (30-110); Anion Gap 6 mmol/L; Blood Urea Nitrogen 33 mg/dL (9-20); Calcium 8.8 mg/dL (8.4-10.2); Carbon Dioxide 24 mmol/L (22-30); Chloride 109 mmol/L (98-107); Glucose 95 mg/dL (74-99); Lipase 111 U/L (23-300); Non-African American GFR(CKD) 29 (>60 ml/min/1.73 sqM); Phosphorus 3.6 mg/dL (2.5-4.5); Potassium 4.5 mmol/L (3.5-5.1); Sodium 139 mmol/L (137-145); Total Bilirubin 0.4 mg/dL (0.2-1.3); Total Protein 6.5 g/dL (6.3-8.2)
[2024-04-07 13:10] LABS: Appearance,Urine Cloudy (Clear); Bacteria,Urine Rare /hpf; Bilirubin,Urine Negative (Negative); Blood,Urine Small (Negative); Color,Urine Colorless; Glucose,Urine (UA) Negative (Negative); Ketones,Urine Negative (Negative); Leukocyte Esterase,Urine Large (Negative); Nitrite,Urine Positive (Negative); Protein,Urine Trace (Negative); RBC,Urine 6 /hpf (0-5); Specific Gravity,Urine 1.007 (1.001-1.035); Urobilinogen,Urine <2.0 mg/dL (<2.0); WBC,Urine >182 /hpf (0-5)
[2024-04-07] MEDS: cefTRIAXone IN SWFI 1,000 MG/10 ML SYRINGE IVP STA (13:25)
[2024-04-07 13:33] VITALS: BP 166/77; PULSE 58; RESP 20; TEMP 97.7
== END 2024-04-07 13:34 | disposition home or self-care (01) ==
LOC: EC 10:17
DX: A04.72 Enterocolitis due to Clostridium difficile, not specified as recurrent (principal); R19.7 Diarrhea, unspecified; N39.0 Urinary tract infection, site not specified
CPT/HCPCS: 36415; 80053; 82150; 83605; 83690; 83735; 84100; 85025; 81001; 87324; 87086; 87077; 87186; 87636; 99284; 96374; 96361; J0696

== ENCOUNTER 2024-04-13 08:04 | Emergency (ER) | payer MEDICARE, BC ==
--- NOTE | 2024-04-13 08:34 | ED ---
General Adult HPI - General Chief complaint: Abdominal Pain Stated complaint: Abdominal Pain Time Seen by Provider: 04/13/24 08:12 Source: patient Mode of arrival: ambulatory Limitations: no limitations - History of Present Illness Initial comments: Dictation was produced using [employer] dictation software. please excuse any grammatical, word or spelling errors. Chief Complaint: 88-year-old male presents with persistent abdominal pain and loose stool History of Present Illness: 88-year-old male presents to the ER to the ER for lower abdominal pain. Patient states he was here last week where he was evaluated for diarrhea. Patient states that his diarrhea was not watery but soft serve. Denies any recent travel. Patient does not expose himself to livestock. No recent food poisoning. Patient also complains of associated lower abdominal pain. The ROS documented in this emergency department record has been reviewed and confirmed by me. Those systems with pertinent positive or negative responses have been documented in the HPI. All other systems are other negative and/or noncontributory. - Related Data Home Medications Medication Instructions Recorded Confirmed Ascorbic Acid [Vitamin C] 500 mg PO DAILY 10/09/20 03/19/23 Cholecalciferol [Vitamin D3 (25 25 mcg PO DAILY 10/09/20 03/19/23 Mcg = 1000 Iu)] Fluticasone Propionate 2 spray PO DAILY 03/13/23 03/19/23 [Fluticasone Propionate Nasal [place]] allopurinoL 200 mg PO DAILY 03/13/23 03/19/23 Previous Rx's Medication Instructions Recorded Pantoprazole [Protonix] 40 mg PO DAILY 15 Days #15 tab 03/15/23 Acetaminophen Tab [Tylenol] 650 mg PO Q6H #30 tab 03/30/23 Ibuprofen [Motrin] 600 mg PO Q6HR PRN #40 tab 03/30/23 Loperamide HCl [Loperamide] 2 mg PO DIRECTED PRN #30 capsule 04/07/24 Vancomycin HCl [Vancocin HCl] 125 mg PO QID 10 Days #40 cap 04/07/24 cefUROXime axetiL [Ceftin] 500 mg PO BID 7 Days #14 tab 04/07/24 Allergies Allergy/AdvReac Type Severity Reaction Status Date / Time No Known Allergies Allergy Verified 04/13/24 08:10 Review of Systems ROS Statement: Those systems with pertinent positive or pertinent negative responses have been documented in the HPI. ROS Other: All systems not noted in ROS Statement are negative. Past Medical History Past Medical History: No Reported History Additional Past Medical History / Comment(s): gout History of Any Multi-Drug Resistant Organisms: None Reported Additional Past Surgical History / Comment(s): eye surgery Past Anesthesia/Blood Transfusion Reactions: No Reported Reaction Past Psychological History: No Psychological Hx Reported Smoking Status: Never smoker Past Alcohol Use History: None Reported Past Drug Use History: None Reported - Past Family History Mother Family Medical History: No Reported History General Exam - General Exam Comments Initial Comments: PHYSICAL EXAM: General Impression: Alert and oriented x3, not in acute distress HEENT: Normocephalic atraumatic, extra-ocular movements intact, pupils equal and reactive to light bilaterally, mucous membranes moist. Cardiovascular: Heart regular rate and rhythm Chest: Able to complete full sentences, no retractions, no tachypnea Abdomen: abdomen soft, non-tender, non-distended, no organomegaly Musculoskeletal: Pulses present and equal in all extremities, no peripheral edema Motor: no focal deficits noted Neurological: CN II-XII grossly intact, no focal motor or sensory deficits noted Skin: Intact with no visualized rashes Psych: Normal affect and mood Limitations: no limitations Course Vital Signs 04/13/24 04/13/24 04/13/24 08:08 09:03 09:48 Temperature 98.0 F 98.0 F 97.8 F Pulse Rate 80 62 51 L Respiratory 16 16 15 Rate Blood Pressure 174/70 175/95 136/59 O2 Sat by Pulse 98 99 99 Oximetry Medical Decision Making - Medical Decision Making Was pt. sent in by a medical professional or institution (, PA, BOILER ATTENDANT, urgent care, hospital, or retirement...) When possible be specific @ -No Did you speak to anyone other than the patient for history (EMS, parent, family, police, friend...)? What history was obtained from this source @ -No Did you review nursing and triage notes (agree or disagree)? Why? @ -I reviewed and agree with nursing and triage notes Were old charts reviewed (outside hosp., previous admission, EMS record, old EKG, old radiological studies, urgent care reports/EKG's, retirement records)? Report findings @ -No old charts were reviewed Differential Diagnosis (chest pain, altered mental status, abdominal pain women, abdominal pain men, vaginal bleeding, musculoskeletal, weakness, fever, dyspnea, syncope, headache, dizziness, GI bleed, back pain, seizure, CVA, palpatations, mental health)? @ -Differential Abdominal Pain Men: Appendicitis, cholecystitis, diverticulosis, ischemic bowel, pancreatitis, hepatitis, UTI, gastroenteritis, AAA, incarcerated hernia, bowel obstruction, constipation, inflammatory bowel, hepatitis, peptic ulcer disease, splenic infa rction, perforated viscus, testicular torsion, this is not meant to be an all- inclusive list EKG interpreted by me (3pts min.). @ -None done X-rays interpreted by me (1pt min.). @ -None done CT interpreted by me (1pt min.). @ -CT scan the ab pelvis shows no acute processes U/S interpreted by me (1pt. min.). @ -None done What testing was considered but not performed or refused? (CT, X-rays, U/S, labs)? Why? @ -None What meds were considered but not given or refused? Why? @ -None Was smoking cessation discussed for >3mins.? @ -No Were there social determinants of health that impacted care today? How? (Homelessness, low income, unemployed, alcoholism, drug addiction, transportation, low edu. Level, literacy, decrease access to med. care, longterm, rehab)? @ -No Was there de-escalation of care discussed even if they declined (Discuss DNR or withdrawal of care, Hospice)? DNR status @ -No What co-morbidities impacted this encounter? (DM, HTN, Smoking, COPD, CAD, Cancer, CVA, ARF, Chemo, Hep., AIDS, mental health diagnosis, sleep apnea, morbid obesity)? @ -None Was patient admitted / discharged? Hospital course, mention meds given and route, prescriptions, significant lab abnormalities, going to OR and other pertinent info. @ -8-year-old male presents with abdominal bloating diarrhea. Vital signs stable. Patient well-appearing at the bedside. Patient's abdomen is nonsurgic al. Labs are unremarkable. No leukocytosis. Stool occult blood is negative. CT imaging is negative. Patient reevaluated bedside 11:18 AM found to be stable to condition. Patient be discharged. Told to follow-up with his primary care doctor. Did you discuss the management of the patient with other professionals (professionals i.e. , PA, BOILER ATTENDANT, lab, RT, psych nurse, perinatal social worker, division sales manager, teacher, juvenile officer, case packer)? Give summary @ -No Was critical care preformed (if so, how long)? @ -No Undiagnosed new problem with uncertain prognosis? @ -No Drug Therapy requiring intensive monitoring for toxicity (Heparin, Nitro, Insulin, Cardizem)? @ -No Were any procedures done? @ -No Diagnosis/symptom? Acute, or Chronic, or Acute on Chronic? Uncomplicated (without systemic symptoms) or Complicated (systemic symptoms)? @ -Abdominal bloating and diarrhea Side effects of treatment? @ -No Exacerbation, Progression, or Severe Exacerbation? @ -No Poses a threat to life or bodily function? How? (Chest pain, [place], [place], pneumonia, PE, COPD, DKA, ARF, appy, cholecystitis, CVA, Diverticulitis, Homicidal, Suicidal, threat to staff... and all critical care pts) @ -No - Lab Data Result diagrams: 04/13/24 08:50 04/13/24 08:50 Lab Results 04/13/24 04/13/24 04/13/24 Range/Units 08:50 08:50 08:50 WBC 10.4 (3.8-10.6) k/uL RBC 4.16 L (4.30-5.90) m/uL Hgb 12.1 L (13.0-17.5) gm/dL Hct 36.8 L (39.0-53.0) % MCV 88.5 (80.0-100.0) fL MCH 29.1 (25.0-35.0) pg MCHC 32.9 (31.0-37.0) g/dL RDW 15.0 (11.5-15.5) % Plt Count 341 (150-450) k/uL MPV 7.6 Neutrophils % 81 % Lymphocytes % 9 % Monocytes % 4 % Eosinophils % 4 % Basophils % 0 % Neutrophils # 8.5 H (1.3-7.7) k/uL Lymphocytes # 0.9 L (1.0-4.8) k/uL Monocytes # 0.4 (0-1.0) k/uL Eosinophils # 0.4 (0-0.7) k/uL Basophils # 0.0 (0-0.2) k/uL Sodium 139 (137-145) mmol/L Potassium 4.8 (3.5-5.1) mmol/L Chloride 109 H (98-107) mmol/L Carbon Dioxide 22 (22-30) mmol/L Anion Gap 8 mmol/L BUN 30 H (9-20) mg/dL Creatinine 1.93 H (0.66-1.25) mg/dL Est GFR (CKD-EPI)AfAm 36 (>60 ml/min/1.73 sqM) Est GFR (CKD-EPI)NonAf 31 (>60 ml/min/1.73 sqM) Glucose 107 H (74-99) mg/dL Calcium 9.2 (8.4-10.2) mg/dL Stool Occult Blood Negative (Negative) Disposition Clinical Impression: Abdominal bloating Disposition: HOME SELF-CARE Condition: Good Instructions (If sedation given, give patient instructions): Gas and Bloating (ED) Is patient prescribed a controlled substance at d/c from ED?: No Referrals: Vikram Carver MD [Primary Care Provider] - 1-2 days Time of Disposition: 11:19
[2024-04-13 09:19] LABS: Basophils % (A) 0 %; Eosinophils # (A) 0.4 k/uL (0-0.7); Eosinophils % (A) 4 %; HCT 36.8 % (39.0-53.0); HGB 12.1 gm/dL (13.0-17.5); Lymphocytes # (A) 0.9 k/uL (1.0-4.8); Lymphocytes % (A) 9 %; MCH 29.1 pg (25.0-35.0); MCHC 32.9 g/dL (31.0-37.0); MCV 88.5 fL (80.0-100.0); Mean Platelet Volume 7.6; Monocytes # (A) 0.4 k/uL (0-1.0); Monocytes % (A) 4 %; Neutrophils # (A) 8.5 k/uL (1.3-7.7); Neutrophils % (A) 81 %; Platelet Count 341 k/uL (150-450); RBC 4.16 m/uL (4.30-5.90); WBC 10.4 k/uL (3.8-10.6)
[2024-04-13 09:35] LABS: African American GFR (CKD) 36 (>60 ml/min/1.73 sqM); Anion Gap 8 mmol/L; Blood Urea Nitrogen 30 mg/dL (9-20); Calcium 9.2 mg/dL (8.4-10.2); Carbon Dioxide 22 mmol/L (22-30); Chloride 109 mmol/L (98-107); Glucose 107 mg/dL (74-99); Non-African American GFR(CKD) 31 (>60 ml/min/1.73 sqM); Potassium 4.8 mmol/L (3.5-5.1); Sodium 139 mmol/L (137-145)
[2024-04-13 09:50] VITALS: TEMP 97.8
[2024-04-13] MEDS: SODIUM CHLORIDE 0.9% 1,000 ML IV STA (09:50)
--- NOTE | 2024-04-13 11:00 | CT ---
EXAMINATION TYPE: CT abdomen pelvis wo con DATE OF EXAM: 04/13/2024 COMPARISON: 03/13/2023 INDICATION: Abdominal pain DLP: 613.2 mGycm, Automated exposure control for dose reduction was used. CONTRAST: 0 mL of Isovue 300. Study performed without Oral Contrast TECHNIQUE: Axial images were obtained from above the diaphragm to the pubic rami in the axial plane a t 5 mm thick sections. Reconstructed images are reviewed on the computer in the coronal plane. FINDINGS: Limited CT sections are obtained the lung bases. The lung bases are clear. Some coronary artery angela cification is present. CT ABDOMEN: Liver: Normal Spleen: Normal Pancreas: Normal Adrenal glands: The adrenal glands are normal. Gallbladder: Surgically absent Kidneys: No masses are evident. No hydronephrosis is present. Small cortical renal cysts are presen t. No renal calcifications identified. Aorta: Vascular calcification is within the aorta. Inferior vena cava: Normal. CT PELVIS: There is a right inguinal hernia containing loops of colon. Loops of bowel are nondilated. No suspicious changes to suggest obstruction. Loops of bowel within the abdomen and pelvis are normal. Scattered diverticula are within the sigmoi d colon. Appears to be some contrast type material through the colon. No small bowel contrast is evid ent. There are loops of bowel which are incompletely distended or lack oral contrast limiting their evaluation. Appendix: Normal as visualized. Urinary bladder: There is diffuse wall thickening through the urinary bladder. Inferior impression fr om the prostate is present. Correlate for neurogenic bladder. Underlying mass is not excluded and fol low-up recommended Genitourinary structures: Prostate is markedly enlarged. Osseous structures: No suspicious lytic or sclerotic lesions. IMPRESSION: 1. Markedly enlarged prostate with inferior impression on the urinary bladder. Urinary bladder wall is thickened which may be related to neurogenic bladder structures and. Underlying mass is not exclud ed. Consider follow-up. Findings are similar comparison. 2. Right hernia containing nonobstructed colon.
[2024-04-13 12:02] VITALS: BP 198/80; PULSE 54; RESP 16
== END 2024-04-13 12:01 | disposition home or self-care (01) ==
LOC: EC 08:04
DX: R14.0 Abdominal distension (gaseous) (principal); R10.30 Lower abdominal pain, unspecified
CPT/HCPCS: 36415; 74176; 80048; 82272; 85025; 96360; 99284

== ENCOUNTER → 2024-05-01 | Outpatient (CLI) | payer MEDICARE, BC ==
--- NOTE | 2024-05-01 16:31 | US ---
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 FINDINGS: EXAM MEASUREMENTS: Post Void Residual Volume: wnl OTR OWNER OPERATOR TRUCK DRIVER NOTES: diverticula noted. *incidental finding: enlarged prostate = 10.0 x 5.3 x 7.4cm Color Doppler performed to assess ureteral jets. Bilateral Jets seen: no Normal Post Void Residual (less than 50ml): yes IMPRESSION: 1. Normal post void residuals. 2. Appearance of the bladder. 3. Prostatomegaly correlate with serum PSA. [facility], , 05/01/2024 4:29 PM
== END | disposition home or self-care (01) ==
LOC: RADUSWWP 13:52
PROVIDERS: ATTEND Family Medicine
DX: N32.89 Other specified disorders of bladder
CPT/HCPCS: 76857